=== PATIENT | female | born 1980 | race Caucasian/White ===

== ENCOUNTER 2016-06-24 18:02 | Emergency (ER) | payer OTHER ==
[2016-06-24 18:12] VITALS: BP 116/85
[2016-06-24] MEDS ORDERED: Aspirin Low Dose CHEW TAB* 81 MG PO ONE (18:53)
[2016-06-24] MEDS ORDERED: NS 0.9% 1000 ML* 1,000 ML IV ONE (18:55)
[2016-06-24] MEDS ORDERED: Ondansetron INJ* 2 MG/ML VIAL IV ONE (18:55)
[2016-06-24 19:01] LABS: Hematocrit 37 % (35-47); Hemoglobin 12.5 g/dl (12.0-16.0); Mean Corpuscular HGB Conc 34 g/dl (31-36); Mean Corpuscular Hemoglobin 29 pg (27-31); Mean Corpuscular Volume 86 fL (80-97); Mean Platelet Volume 9 um3 (7.4-10.4); Red Blood Count 4.28 10^6/ul (4.0-5.4); Red Cell Distribution Width 13 % (10.5-15)
--- NOTE | 2016-06-24 19:10 | ED ---
HPI Chest Pain - HPI Summary HPI Summary: Patient presents with back pain radiating to mid-sternal chest. Patient states she has had a previous IA, stroke, and chronic issues with spondylolithiasis and seizures. She states her last seizure was probably yesterday, but gets them usually everyday. She takes Keppra and Depakote. She is drinking and eating OK, but vomits every time she drinks water. Denies leg swelling, although states she has L ankle swelling at baseline after ankle surgery a few years ago. She has back pain at baseline which often will radiate to the chest , but today is worse than usual. Endorses SOB and dyspnea on exertion. She has been seen for these issues multiple times in the ED with CXR, EKG and blood work all returning as normal. She does not see a aircraft engine cylinder mechanic and is seen only by her PCP. Endorses bilateral arm tingling and numbness and L tingling and numbness in the lower extremity. Denies previous PE or DVT. Denies recent travel. Denies estrogen use. PERC score is low risk for PE. - History of Current Complaint Chief Complaint: EDChestPainROMI Time Seen by Provider: 06/24/16 18:30 Hx Obtained From: Patient Onset/Duration: Started Days Ago Timing: Constant Initial Severity: Moderate Current Severity: Moderate Pain Intensity: 9 Pain Scale Used: 0-10 Numeric Chest Pain Location: Discrete at: - midback, Mid Sternal Chest Pain Radiates To:: Epigastric Character: Dull/Aching Aggravating Factor(s): Nothing Alleviating Factor(s): Nothing Associated Signs and Symptoms: Positive: Chest Pain - Risk Factors Pulmonary Embolism Risk Factors: Negative TAD Risk Factors: Negative AMI/ACS Risk Factors: Myocardial Infarction, Family History - Allergy/Home Medications Allergies/Adverse Reactions: Allergies Allergy/AdvReac Type Severity Reaction Status Date / Time Latex Allergy Severe Edema Verified 05/03/16 04:32 Adhesive Tape Allergy Intermediate Hives Verified 05/03/16 04:32 Tramadol AdvReac "gets Verified 05/03/16 04:32 violent" PMH/Surg Hx/FS Hx/Imm Hx Previously Healthy: Yes Endocrine/Hematology History: Reports: Other Endocrine/Hematological Disorders - was told that she has a high risk of clotting from a blood test, no dvt/pe Denies: Hx Diabetes Cardiovascular History: Reports: Hx Hypotension, Hx Hypertension Denies: Hx Pacemaker/ICD Respiratory History: Reports: Hx Asthma - W/NEBULIZER History: Denies: Hx Renal Disease Musculoskeletal History: Reports: Hx Scoliosis, Other Musculoskeletal History - spina bifida Sensory History: Denies: Hx Hearing Aid Psychiatric History: Denies: Hx Panic Disorder - Surgical History Surgery Procedure, Year, and Place: L ear prostethis(PLASTIC BONES); HYSTERECTOMY; neck surgery; gallbladder removed; stomach surgery 2003--"tumors and cysts"; appendectomy Infectious Disease History: No Infectious Disease History: Denies: Hx Clostridium Difficile, Hx Hepatitis, Hx Human Immunodeficiency Virus (HIV), Hx of Known/Suspected MRSA, Hx Shingles, Hx Tuberculosis, Hx Known/ Suspected VRE, Hx Known/Suspected VRSA, History Other Infectious Disease, Traveled Outside the [place] in Last 30 Days - Family History Known Family History: Positive: Diabetes, Other - Bipolar disorder, aunt with stage 4 lung cancer - Social History Occupation: Unemployed Lives: Alone Alcohol Use: None Substance Use Type: Reports: None Hx Tobacco Use: Yes Smoking Status (MU): Current Some Day Smoker Type: Cigarettes Amount Used/How Often: 1/2 ppd Length of Time of Smoking/Using Tobacco: 15 yrs Have You Smoked in the Last Year: Yes Review of Systems Constitutional: Negative Eyes: Negative ENT: Negative Positive: Chest Pain Positive: Shortness Of Breath Positive: Vomiting - 1X episode, Nausea Positive: Arthralgia - L ankle Skin: Negative Positive: Paresthesia - bilateral arms, L lower extremity Positive: Anxious All Other Systems Reviewed And Are Negative: Yes Physical Exam Triage Information Reviewed: Yes Vital Signs On Initial Exam: Initial Vitals Temp Pulse Resp BP Pulse Ox 96.9 F 94 20 116/85 98 06/24/16 18:05 06/24/16 18:05 06/24/16 18:05 06/24/16 18:05 06/24/16 18:05 Vital Signs Reviewed: Yes Appearance: Positive: Well-Appearing - pale Skin: Positive: Warm, Dry - dry mucous membranes, Pale Head/Face: Positive: Normal Head/Face Inspection Eyes: Positive: EOMI, NORA, Conjunctiva Clear ENT: Positive: Hearing grossly normal Neck: Positive: Supple, Nontender, No Lymphadenopathy Respiratory/Lung Sounds: Positive: Clear to Auscultation, Breath Sounds Present Cardiovascular: Positive: Normal, Pulses are Symmetrical in both Upper and Lower Extremities Abdomen Description: Positive: Nontender, Soft Musculoskeletal: Positive: Normal, Strength/ROM Intact Neurological: Positive: Normal, Sensory/Motor Intact, Reflexes Intact, Normal Gait, Speech Normal Psychiatric: Positive: Normal AVPU Assessment: Alert Diagnostics - Vital Signs Vital Signs Temp Pulse Resp BP Pulse Ox 06/24/16 18:05 96.9 F 94 20 116/85 98 - Laboratory Lab Results: Lab Results 06/24/16 Range/Units 18:40 WBC 8.0 (3.5-10.8) 10^3/ul RBC 4.28 (4.0-5.4) 10^6/ul Hgb 12.5 (12.0-16.0) g/dl Hct 37 (35-47) % MCV 86 (80-97) fL MCH 29 (27-31) pg MCHC 34 (31-36) g/dl RDW 13 (10.5-15) % Plt Count 205 (150-450) 10^3/ul MPV 9 (7.4-10.4) um3 Neut % (Auto) 44.7 (38-83) % Lymph % (Auto) 44.0 (25-47) % Ward % (Auto) 8.2 (1-9) % Eos % (Auto) 2.4 (0-6) % Baso % (Auto) 0.7 (0-2) % Absolute Neuts (auto) 3.6 (1.5-7.7) 10^3/ul Absolute Lymphs (auto) 3.5 (1.0-4.8) 10^3/ul Absolute Monos (auto) 0.6 (0-0.8) 10^3/ul Absolute Eos (auto) 0.2 (0-0.6) 10^3/ul Absolute Basos (auto) 0.1 (0-0.2) 10^3/ul Absolute Nucleated RBC 0 10^3/ul Nucleated RBC % 0 Result Diagrams: 06/24/16 18:40 06/24/16 18:40 Lab Statement: Any lab studies that have been ordered have been reviewed, and results considered in the medical decision making process. Chest Pain Course/Dx - Course Course Of Treatment: Cardiac workup WNL. Fluids given. Compared previous EKG and Xray with no acute changes. Previously seen for similar issues with same outcome. Patient to be sent home with ibuprofen and encourage gatorade for feelings of dehydration. Patient encouraged to follow up with PCP in regards to ongoing seizure issues. - Chest Pain Differential Diagnosis/HQI/PQRI: Acute IA, Chest Wall, Lower Respiratory Infection - Diagnoses Provider Diagnoses: Chest wall pain, Dehydration Discharge - Discharge Plan Condition: Stable Disposition: HOME Patient Education Materials: Chest Wall Pain (ED), Chronic Back Pain (ED) Referrals: No Primary Care Phys,NOPCP [Primary Care Provider] - Additional Instructions: May take ibuprofen 600mg three times daily as needed for pain. warm compresses to the back and chest to relieve discomfort. Gatorade to boost electrolytes if you are feeling fatigued.
[2016-06-24 19:13] LABS: Albumin 3.8 g/dL (3.2-5.2); BUN/Creatinine Ratio 22.2 (8-20); Calcium 9.3 mg/dL (8.6-10.3); EGFR African American 139.1 (>60); EGFR Non-African American 108.2 (>60); Globulin 3.3 g/dL (2-4); Potassium 3.8 mmol/L (3.5-5.0); Total Bilirubin 0.2 mg/dL (0.2-1.0); Total Protein 7.1 g/dL (6.4-8.9)
--- NOTE | 2016-06-24 19:25 | RAD ---
INDICATION: Chest pain COMPARISON: May 03, 2016 TECHNIQUE: An AP portable view obtained at 1910 hours is submitted. FINDINGS: Bones/Soft Tissues: There are no acute bony findings. Cardiomediastinal: The cardiomediastinal silhouette is normal. Lungs: There are no infiltrates. Pleura: There are no pleural effusions. Other: None IMPRESSION: NORMAL CHEST.
[2016-06-24 19:36] LABS: TSH (Thyroid Stimulating Horm) 5.69 mcIU/mL (0.34-5.60)
[2016-06-24 19:45] LABS: Magnesium 1.9 mg/dL (1.9-2.7)
== END 2016-06-24 20:29 | disposition home or self-care (01) ==
LOC: ED 18:02
DX: R07.89 Other chest pain (principal); E86.0 Dehydration; M54.9 Dorsalgia, unspecified; Z72.0 Tobacco use; R11.2 Nausea with vomiting, unspecified; F41.9 Anxiety disorder, unspecified; R20.9 Unspecified disturbances of skin sensation
CPT/HCPCS: 36415; 71010; 80053; 82550; 82553; 83605; 83735; 83874; 83880; 84443; 84484; 84702; 85025; 93005; 96374; 99283; A9270-GY; J2405

== ENCOUNTER 2016-11-01 21:56 | Emergency (ER) | payer MEDICAID ==
[2016-11-01 22:27] VITALS: BP 118/90
[2016-11-01] MEDS ORDERED: Ibuprofen TAB* 400 MG PO ONE (22:48)
[2016-11-01] MEDS ORDERED: oxyCODONE/Acetamin 5/325 MG* TAB PO ONE (22:48)
[2016-11-01] MEDS ORDERED: Ketorolac INJ* 60 MG/2 ML VIAL IM ONE (22:48)
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
== END 2016-11-01 23:12 | disposition home or self-care (01) ==
LOC: ED 21:56
DX: M94.0 Chondrocostal junction syndrome [Tietze] (principal); M54.12 Radiculopathy, cervical region; M54.9 Dorsalgia, unspecified; M54.30 Sciatica, unspecified side
CPT/HCPCS: 96372; 99282; A9270-GY

== ENCOUNTER 2016-11-08 00:41 | Emergency (ER) | payer MEDICAID ==
[2016-11-08 01:19] VITALS: BP 117/71
[2016-11-08] MEDS ORDERED: Ibuprofen TAB* 600 MG PO ONE (01:21)
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
--- NOTE | 2016-11-08 08:00 | RAD ---
Indication: RIGHT knee pain without proceeding injury. Numbness down the leg into the foot. Comparison: October 08, 2012 radiographs. Technique: RIGHT knee: AP, tunnel, crosstable lateral, sunrise views. Report: Negative for joint effusion or fracture. Mild medial joint space narrowing. No appreciable osteophytosis. Unremarkable soft tissue contours. IMPRESSION: Mild medial joint space narrowing without significant interval change suggesting thinning of the hyaline articular cartilage.
== END 2016-11-08 03:17 | disposition home or self-care (01) ==
LOC: ED 00:41
DX: M25.561 Pain in right knee (principal); Z72.0 Tobacco use
CPT/HCPCS: 99282; A9270-GY

== ENCOUNTER 2016-12-13 01:59 | Emergency (ER) | payer MEDICAID, OTHER ==
[2016-12-13] MEDS ORDERED: Acetaminophen TAB* 325 MG PO ONE (03:06)
[2016-12-13] MEDS ORDERED: Ibuprofen TAB* 800 MG PO ONE (03:06)
[2016-12-13] MEDS ORDERED: Cyclobenzaprine TAB* 10 MG PO ONE (03:06)
[2016-12-13 06:15] VITALS: BP 111/65
--- NOTE | 2016-12-13 06:28 | ED ---
Jose Ch Benjamin, scribed for Jeri Vargas MD on 12/13/16 at 0249 . Back Pain - HPI Summary HPI Summary: 36yo female came to ED after a mechanical fall while getting out of the shower today. Pt denies LOC or associated head trauma. Pt reports neck and back pain from the fall. 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 - History of Current Complaint Chief Complaint: EDBackInjuryPain Stated Complaint: FALL/BACK AND NECK PAIN Time Seen by Provider: 12/13/16 02:23 Hx Obtained From: Patient Hx Last Menstrual Period: does not get Onset/Duration: Sudden Onset, Lasting Hours, Still Present Onset/Duration: Started Hours Ago, Traumatic, Still Present Timing: Constant Back Pain Location: Is Discrete @ - low back and neck Severity Initially: Moderate Severity Currently: Moderate Pain Intensity: 8 Pain Scale Used: 0-10 Numeric Character: Aching, Throbbing, Spasmodic Aggravating Symptom(s): Movement Alleviating Symptom(s): Nothing Associated Signs And Symptoms: Positive: Negative, Weakness - Allergies/Home Medications Allergies/Adverse Reactions: Allergies Allergy/AdvReac Type Severity Reaction Status Date / Time Latex Allergy Severe Edema Verified 11/08/16 01:14 Adhesive Tape Allergy Intermediate Hives Verified 11/08/16 01:14 Tramadol AdvReac "gets Verified 11/08/16 01:14 violent" PMH/Surg Hx/FS Hx/Imm Hx Endocrine/Hematology History: Reports: Other Endocrine/Hematological Disorders - was told that she has a high risk of clotting from a blood test, no dvt/pe Denies: Hx Diabetes Cardiovascular History: Reports: Hx Hypotension, Hx Hypertension Denies: Hx Pacemaker/ICD Respiratory History: Reports: Hx Asthma - W/NEBULIZER History: Denies: Hx Renal Disease Musculoskeletal History: Reports: Hx Scoliosis, Other Musculoskeletal History - spina bifida Sensory History: Denies: Hx Hearing Aid Psychiatric History: Denies: Hx Panic Disorder - Surgical History Surgery Procedure, Year, and Place: L ear prostethis(PLASTIC BONES); HYSTERECTOMY; neck surgery; gallbladder removed; stomach surgery 2003--"tumors and cysts"; appendectomy Infectious Disease History: No Infectious Disease History: Denies: Hx Clostridium Difficile, Hx Hepatitis, Hx Human Immunodeficiency Virus (HIV), Hx of Known/Suspected MRSA, Hx Shingles, Hx Tuberculosis, Hx Known/ Suspected VRE, Hx Known/Suspected VRSA, History Other Infectious Disease, Traveled Outside the [place] in Last 30 Days - Family History Known Family History: Positive: Cardiac Disease, Diabetes, Other - Bipolar disorder, aunt with stage 4 lung cancer Negative: Hypertension - Social History Occupation: Unemployed Lives: With Family Alcohol Use: None Substance Use Type: Reports: None Hx Tobacco Use: Yes Smoking Status (MU): Current Some Day Smoker Type: Cigarettes Amount Used/How Often: 1/2 ppd Length of Time of Smoking/Using Tobacco: 15 yrs Have You Smoked in the Last Year: Yes Review of Systems Constitutional: Negative Eyes: Negative ENT: Negative Cardiovascular: Negative Negative: Chest Pain Respiratory: Negative Negative: Shortness Of Breath Gastrointestinal: Negative Negative: Abdominal Pain Genitourinary: Negative Positive: Arthralgia - neck pain, Myalgia - back pain Skin: Negative Positive: Weakness - chronic left sided weakness from prior CVA Psychological: Normal All Other Systems Reviewed And Are Negative: Yes Physical Exam Triage Information Reviewed: Yes Vital Signs On Initial Exam: Initial Vitals Temp Pulse Resp BP Pulse Ox 98.4 F 86 15 129/63 99 12/13/16 02:03 12/13/16 02:03 12/13/16 02:03 12/13/16 02:03 12/13/16 02:03 Vital Signs Reviewed: Yes Appearance: Positive: Well-Appearing, No Pain Distress, Well-Nourished Skin: Positive: Warm, Skin Color Reflects Adequate Perfusion, Dry Head/Face: Positive: Normal Head/Face Inspection Eyes: Positive: EOMI, NORA ENT: Positive: Normal ENT inspection, Hearing grossly normal, Pharynx normal, TMs normal Neck: Positive: Supple, Nontender Respiratory/Lung Sounds: Positive: Clear to Auscultation, Breath Sounds Present. Negative: Rales, Rhonchi Cardiovascular: Positive: RRR. Negative: Murmur Abdomen Description: Positive: Nontender, Soft. Negative: Distended, Guarding Bowel Sounds: Positive: Present Musculoskeletal: Positive: Strength/ROM Intact Neurological: Positive: Sensory/Motor Intact, Alert, Oriented to Person Place, Time, CN Intact II-III Psychiatric: Positive: Affect/Mood Appropriate Diagnostics - Vital Signs Vital Signs Temp Pulse Resp BP Pulse Ox 12/13/16 02:03 98.4 F 86 15 129/63 99 - Laboratory Lab Statement: Any lab studies that have been ordered have been reviewed, and results considered in the medical decision making process. - Radiology T spine Xray Interpretation: No Acute Changes Radiology Interpretation Completed By: ED Physician C spine Xray Interpretation: Positive (See Comments) - Irregular edges of the vertebral bodies in C5. Radiology Interpretation Completed By: ED Physician Back Pain Course/Dx - Course Course Of Treatment: 36 yo female with a fall getting into shower (she has residual left sided weakness from a previous CVA) resulting in c5 and t12 tenderness diagnostic studies were negative and pt was able to go home with some muscle relaxers - Diagnoses Provider Diagnoses: Back strain Discharge - Discharge Plan Condition: Stable Disposition: HOME Prescriptions: Cyclobenzaprine TAB* [Flexeril 10 MG TAB*] 10 mg PO TID PRN #20 tab PRN Reason: Spasms Patient Education Materials: Cervical Strain (ED), Thoracic Back Strain (ED) Referrals: Non Staff,Doctor [Primary Care Provider] - The documentation as recorded by the Jose medina Benjamin accurately reflects the service I personally performed and the decisions made by me, Jeri Vargas MD.
--- NOTE | 2016-12-13 08:04 | RAD ---
INDICATION: Fell backwards. Neck pain. COMPARISON: None TECHNIQUE: Routine five-view imaging was performed FINDINGS: Bones: There are no acute bony findings. There are minor degenerative changes about C5-C6. Craniocervical junction: The odontoid and atlantodental interval are normal. Alignment: Cervical spine straightening. Disc spaces: The disc spaces are well-maintained Soft tissues: The prevertebral soft tissues are normal. IMPRESSION: NO ACUTE BONY FINDINGS. MINOR DEGENERATIVE CHANGES C5-C6.
--- NOTE | 2016-12-13 08:04 | RAD ---
INDICATION: Fall. Back pain. COMPARISON: None TECHNIQUE: Routine 2 view imaging was performed FINDINGS: Bones: There are no acute bony findings. There are no significant osteoarthritic findings. Alignment: There is mild kyphosis. There is a scoliotic deformity. Disc spaces: The disc spaces are well-maintained Soft tissues: There are no soft tissue abnormalities. IMPRESSION: KYPHOSCOLIOSIS. NO ACUTE BONY CHANGE.
--- NOTE | 2016-12-13 08:11 | RAD ---
INDICATION: Fall backwards. Neck pain. COMPARISON: Cervical spine same date some: CT cervical spine October 07, 2013 TECHNIQUE: Noncontrast axial source images was performed from the skull base to the thoracic inlet. Coronal and and sagittal reformatted images were generated. FINDINGS: Vertebrae: There is no fracture or acute focal bony lesion. There are degenerative endplate changes at C5-C6 with minor anterior vertebral evidence of process spurring, unchanged. There is also minor spurring about C6-C7. Alignment: Mild reversal normal cervical lordosis, unchanged. The craniocervical junction and atlantodental interval are normal. Central Canal: There are no significant CT abnormalities of the central canal or foramina. MR imaging is a more sensitive method to evaluate the canal and foramina. Intervertebral disc spaces: The remaining disc spaces are maintained. Brain: The visualized brain appears unremarkable. Soft tissues: The visualized soft tissue elements of the neck are unremarkable. The prevertebral soft tissues appear normal. The lung apices are clear. IMPRESSION: MINOR MID TO LOWER CERVICAL OSTEOARTHRITIS. NO ACUTE FINDINGS
== END 2016-12-13 06:14 | disposition home or self-care (01) ==
LOC: ED 01:59
DX: S39.012A Strain of muscle, fascia and tendon of lower back, initial encounter (principal); M54.2 Cervicalgia; M54.9 Dorsalgia, unspecified; R53.1 Weakness; W19.XXXA Unspecified fall, initial encounter; Y93.E1 Activity, personal bathing and showering; Y92.89 Other specified places as the place of occurrence of the external cause; Z72.0 Tobacco use
CPT/HCPCS: 72050; 72070; 72125; 99282; A9270-GY

== ENCOUNTER 2017-06-25 08:15 | Emergency (ER) | payer OTHER ==
--- NOTE | 2017-06-25 08:59 | RAD ---
INDICATION: Back pain after fall COMPARISON: CT cervical spine December 13, 2016 TECHNIQUE: Noncontrast axial source images was performed from the skull base to the thoracic inlet. Coronal and and sagittal reformatted images were generated. FINDINGS: Vertebrae: There is no fracture or acute focal bony lesion. Alignment: The craniocervical junction appears normal. There is cervical spine straightening, unchanged. Central Canal: There are no significant CT abnormalities of the central canal or foramina. MR imaging is a more sensitive method to evaluate the canal and foramina. Intervertebral disc spaces: There is moderate degenerative disc disease about C5-C6, unchanged The disc spaces are maintained. Brain: The visualized brain appears unremarkable. Soft tissues: The visualized soft tissue elements of the neck are unremarkable. The prevertebral soft tissues appear normal. The lung apices are clear. IMPRESSION: DEGENERATIVE DISEASE C5-C6. NO ACUTE FINDINGS.
--- NOTE | 2017-06-25 09:30 | RAD ---
INDICATION: Back pain COMPARISON: None TECHNIQUE: Routine 2 view imaging was performed FINDINGS: Bones: There are no acute bony findings. There are no significant osteoarthritic findings. Alignment: There is moderate dextroscoliosis of the thoracic spine with minor kyphosis Disc spaces: The disc spaces are well-maintained Soft tissues: There are no soft tissue abnormalities. IMPRESSION: Minor kyphoscoliosis, otherwise negative.
--- NOTE | 2017-06-25 09:30 | RAD ---
INDICATION: Back pain COMPARISON: None TECHNIQUE: AP and lateral views were obtained . FINDINGS: Bones: There are no acute bony findings. There are no significant osteoarthritic findings. Alignment: There is minor levoscoliosis. Disc spaces: The disc spaces are well-maintained Soft tissues: There are no soft tissue abnormalities. IMPRESSION: NO ACUTE BONY FINDINGS
--- NOTE | 2017-06-25 09:30 | RAD ---
INDICATION: Pain. Fall COMPARISON: CT January 20, 2016 TECHNIQUE: 2 views of the coccyx and sacrum are submitted FINDINGS: There are no acute bony findings. There is minor sclerosis about the SI joints, unchanged. The symphysis is intact. IMPRESSION: NO ACUTE BONY FINDINGS.
[2017-06-25] MEDS ORDERED: Ketorolac INJ* 60 MG/2 ML VIAL IM ONE (10:01)
[2017-06-25] MEDS ORDERED: Methocarbamol TAB* 500 MG PO ONE (10:01)
[2017-06-25 10:15] VITALS: BP 118/79
--- NOTE | 2017-06-26 09:30 | ED ---
Roseanna Ch Edward, scribed for Abdulaziz Cooley MD on 06/25/17 at 0827 . Adult Trauma - HPI Summary HPI Summary: 36 y/o female presents to the ED c/o immediate onset pain at the back of the neck going down to her tailbone s/p fall at around 04:00 this morning. The pain is rated 9/10, aggravated with movement of the back to a 10/10. Associated sx: bilateral rib pain s/p second fall immediately after the first. Pt landed on her neck and her back after tripping over her service dog. Denies LOC. Pt has back surgery next month to straighten her spine. - History of Current Complaint Chief Complaint: EDBackInjuryPain Stated Complaint: FALL Time Seen by Provider: 06/25/17 08:20 Hx Obtained From: Patient Hx Last Menstrual Period: does not get Mechanism of Injury: Fall - 2x Loss of Consciousness: no loss of consciousness Onset/Duration: Started Hours Ago Onset of Pain: Immediate Current Severity: Severe Pain Intensity: 9 Pain Scale Used: 0-10 Numeric Location: Neck, Chest - ribs, Back Aggravating Factor(s): Movement Alleviating Factor(s): Nothing Associated Signs & Symptoms: Positive: Chest Pain - rib pain. Negative: Loss of Consciousness - Allergy/Home Medications Allergies/Adverse Reactions: Allergies Allergy/AdvReac Type Severity Reaction Status Date / Time Latex Allergy Severe Edema Verified 06/25/17 08:17 Adhesive Tape Allergy Intermediate Hives Verified 06/25/17 08:17 Tramadol AdvReac "gets Verified 06/25/17 08:17 violent" PMH/Surg Hx/FS Hx/Imm Hx Previously Healthy: No Endocrine/Hematology History: Reports: Other Endocrine/Hematological Disorders - was told that she has a high risk of clotting from a blood test, no dvt/pe Denies: Hx Diabetes Cardiovascular History: Reports: Hx Hypotension, Hx Hypertension Denies: Hx Pacemaker/ICD Respiratory History: Reports: Hx Asthma - W/NEBULIZER History: Denies: Hx Renal Disease Musculoskeletal History: Reports: Hx Scoliosis, Other Musculoskeletal History - spina bifida Sensory History: Denies: Hx Hearing Aid Psychiatric History: Denies: Hx Panic Disorder - Surgical History Surgery Procedure, Year, and Place: L ear prostethis(PLASTIC BONES); HYSTERECTOMY; neck surgery; gallbladder removed; stomach surgery 2003--"tumors and cysts"; appendectomy Infectious Disease History: No Infectious Disease History: Denies: Hx Clostridium Difficile, Hx Hepatitis, Hx Human Immunodeficiency Virus (HIV), Hx of Known/Suspected MRSA, Hx Shingles, Hx Tuberculosis, Hx Known/ Suspected VRE, Hx Known/Suspected VRSA, History Other Infectious Disease, Traveled Outside the [place] in Last 30 Days - Family History Known Family History: Positive: Cardiac Disease, Diabetes, Other - Bipolar disorder, aunt with stage 4 lung cancer Negative: Hypertension - Social History Alcohol Use: None Substance Use Type: Reports: None Hx Tobacco Use: Yes Smoking Status (MU): Current Some Day Smoker Type: Cigarettes Amount Used/How Often: 1/2 ppd Length of Time of Smoking/Using Tobacco: 15 yrs Have You Smoked in the Last Year: Yes Review of Systems Constitutional: Negative Eyes: Negative ENT: Negative Positive: Chest Pain - rib pain Respiratory: Negative Gastrointestinal: Negative Genitourinary: Negative Positive: Arthralgia - back of neck down to tailbone Skin: Negative Neurological: Negative Psychological: Normal All Other Systems Reviewed And Are Negative: Yes Physical Exam - Summary Physical Exam Summary: VITAL SIGNS: Reviewed. GENERAL: Patient is a well-developed and nourished female who is lying comfortable in the stretcher. Patient is not in any acute respiratory distress. HEAD AND FACE: No signs of trauma. No ecchymosis, hematomas or skull depressions. No sinus tenderness. EYES: PERRLA, EOMI x 2, No injected conjunctiva, no nystagmus. EARS: Hearing grossly intact. Ear canals and tympanic membranes are within normal limits. MOUTH: Oropharynx within normal limits. NECK: Supple, trachea is midline, no adenopathy, no JVD, no carotid bruit, no c- spine tenderness, neck with full ROM. CHEST: Symmetric, no tenderness at palpation LUNGS: Clear to auscultation bilaterally. No wheezing or crackles. CVS: Regular rate and rhythm, S1 and S2 present, no murmurs or gallops appreciated. ABDOMEN: Soft, non-tender. No signs of distention. No rebound no guarding, and no masses palpated. Bowel sounds are normal. EXTREMITIES: FROM in all major joints, no edema, no cyanosis or clubbing. There is tenderness along the paraspinal muscle from C to L spine. The pt is able to ambulate. There is no fecal or bowel dysfunction. The pain does not radiate to the legs. There is no numbness/weakness in LE. No dropped foot. Pain is 9/10. NEURO: Alert and oriented x 3. No acute neurological deficits. Speech is normal and follows commands. SKIN: Dry and warm Triage Information Reviewed: Yes Vital Signs On Initial Exam: Initial Vitals Temp Pulse Resp BP Pulse Ox 98.4 F 93 16 124/101 97 06/25/17 08:18 06/25/17 08:18 06/25/17 08:18 06/25/17 08:18 06/25/17 08:18 Vital Signs Reviewed: Yes Diagnostics - Vital Signs Vital Signs Temp Pulse Resp BP Pulse Ox 06/25/17 08:18 98.4 F 93 16 124/101 97 - Laboratory Lab Statement: Any lab studies that have been ordered have been reviewed, and results considered in the medical decision making process. - Radiology THORACIC SPINE XR Xray Interpretation: No Acute Changes - Minor kyphoscoliosis, otherwise negative. Radiology Interpretation Completed By: Radiologist SACRUM XR Xray Interpretation: No Acute Changes - NO ACUTE BONY FINDINGS Radiology Interpretation Completed By: Radiologist LUMBAR XR Xray Interpretation: No Acute Changes - NO ACUTE BONY FINDINGS Radiology Interpretation Completed By: Radiologist - CT CSPINE CT CT Interpretation: No Acute Changes - DEGENERATIVE DISEASE C5-C6. NO ACUTE FINDINGS. CT Interpretation Completed By: Radiologist - ED PHYSICIAN REVIEWS AND AGREES Re-Evaluation - Re-Evaluation 1 Re-Evaluation Time: 10:08 Comment: Discuss imaging results, plan of care Adult Trauma Course/Dx - Course Assessment/Plan: 36 y/o female presents to the ED c/o immediate onset pain at the back of the neck going down to her tailbone s/p fall at around 04:00 this morning. The pain is rated 9/10, aggravated with movement of the back to a 10/ 10. Associated sx: bilateral rib pain s/p second fall immediately after the first. Pt landed on her neck and her back after tripping over her service dog. Denies LOC. Pt has back surgery next month to straighten her spine. CSPINE CT SHOWS DEGENERATIVE DISEASE C5-C6. NO ACUTE FINDINGS. TSPINE XR SHOWS Minor kyphoscoliosis, otherwise negative. SACRUM XR SHOWS NO ACUTE BONY FINDINGS. LUMBAR SPINE XR SHOWS NO ACUTE BONY FINDINGS. XR negative for acute fracture dislocation. The pt was given toradol and robaxin and the sx improved. At this point the pt is ambulating with no difficulty, with a good steady walk. The pt will be d/c home with f/u with Dr. Cruz, the pts surgeon. Pt left the ER ambulating. - Diagnoses Differential Diagnosis/HQI/PQRI: Positive: Contusion(s), Fracture, Dislocation, Sprain, Strain Provider Diagnoses: Back pain Discharge - Discharge Plan Condition: Stable Disposition: HOME Prescriptions: HYDROcodone/ACETAMIN 5-325 MG* [[place] 5-325 TAB*] 1 tab PO Q6H PRN #10 tab MDD 4 PRN Reason: Pain Patient Education Materials: Back Pain (ED) Referrals: Non Staff,Doctor [Primary Care Provider] - 4 Days (PLEASE F/U IN 3-5 DAYS) The documentation as recorded by the Roseanna medina Edward accurately reflects the service I personally performed and the decisions made by Yasir conklin Walter, MD.
== END 2017-06-25 10:16 | disposition home or self-care (01) ==
LOC: ED 08:15
DX: M54.9 Dorsalgia, unspecified (principal); M50.322 Other cervical disc degeneration at C5-C6 level; R07.81 Pleurodynia; I95.9 Hypotension, unspecified; I10 Essential (primary) hypertension; J45.909 Unspecified asthma, uncomplicated; Z90.710 Acquired absence of both cervix and uterus; Z90.49 Acquired absence of other specified parts of digestive tract; Z91.040 Latex allergy status; Z88.5 Allergy status to narcotic agent; Z91.048 Other nonmedicinal substance allergy status; Z72.0 Tobacco use
CPT/HCPCS: 72070; 72100; 72125; 72220; 96372; 99283; A9270-GY; J1885

== ENCOUNTER 2017-07-13 00:45 | Emergency (ER) | payer OTHER ==
[2017-07-13 02:46] LABS: Hematocrit 39 % (35-47); Hemoglobin 12.8 g/dl (12.0-16.0); Red Blood Count 4.47 10^6/ul (4.0-5.4); White Blood Count 7.8 10^3/ul (3.5-10.8)
[2017-07-13 02:47] LABS: ABS Basophils 0.1 10^3/ul (0-0.2); ABS Eosinophils 0.1 10^3/ul (0-0.6); ABS Lymphocytes 3.2 10^3/ul (1.0-4.8); ABS Monocytes 0.5 10^3/ul (0-0.8); ABS Neutrophils 3.9 10^3/ul (1.5-7.7); ABS Nucleated RBC 0 10^3/ul; EGFR Non-African American 79.3 (>60); Eosinophil % 1.8 % (0-6); Lymphocyte % 40.7 % (25-47); Mean Corpuscular HGB Conc 33 g/dl (31-36); Mean Corpuscular Hemoglobin 29 pg (27-31); Mean Corpuscular Volume 86 fL (80-97); Mean Platelet Volume 9 um3 (7.4-10.4); Nucleated Red Blood Cells % 0; Platelet Count 221 10^3/ul (150-450); Red Cell Distribution Width 14 % (10.5-15)
[2017-07-13] MEDS ORDERED: Ketorolac INJ* 30 MG/ML 1 ML VIAL IV ONE (03:48)
[2017-07-13] MEDS: NS 0.9% 1000 ML* 2,000 ML IV ONE ×2 (04:07→04:08)
[2017-07-13 04:39] LABS: Urine Appearance Clear; Urine Blood Negative (Negative); Urine Color Straw; Urine Ketones Negative (Negative); Urine Protein Negative (Negative); Urine Specific Gravity 1.009 (1.010-1.030); Urine Urobilinogen Negative (Negative)
[2017-07-13] MEDS ORDERED: Ondansetron INJ* 2 MG/ML VIAL IV ONE (04:57)
[2017-07-13] MEDS ORDERED: Iohexol 300* (CONTRAST) 10 ML SDV IV ONE (06:13)
[2017-07-13 07:29] VITALS: BP 100/62
--- NOTE | 2017-07-13 08:24 | ED ---
Annie Ch Nilda, scribed for Vito Ohara MD on 07/13/17 at 0430 . Abdominal Pain/Female - HPI Summary HPI Summary: This patient is a 36 year old F presenting to [facility] with a chief complaint of diffuse severe abd pain since yesterday morning. The patient rates the pain 8/ 10 in severity. Symptoms aggravated by movement and alleviated by rest. Patient reports acute abd distension, 5 lb weight gain over the past month, discharge from umbilicus, and urinary frequency. Patient denies loss of appetite, abnormal BM, and nausea. Pt states allergies to Tramadol. No PMHx diverticulitis. PSHx cyst and tumor removed from abdomen (2008), hysterectomy, gallstones, and 19 D&Cs (miscarriages). - History of Current Complaint Chief Complaint: EDRashSkinAbscess Stated Complaint: ABD PAIN, SWELLING Hx Obtained From: Patient Hx Last Menstrual Period: does not get Onset/Duration: Sudden Onset, Lasting Days, Still Present Timing: Constant Severity Currently: Severe Pain Intensity: 8 Pain Scale Used: 0-10 Numeric Location: Diffuse Radiates: No Aggravating Factor(s): Movement Alleviating Factor(s): Other: - rest Associated Signs and Symptoms: Positive: Other: - acute abd distension, 5 lb weight gain over the past month, discharge from umbilicus, and urinary frequency. Patient denies loss of appetite, abnormal BM, and nausea. Allergies/Adverse Reactions: Allergies Allergy/AdvReac Type Severity Reaction Status Date / Time Adhesive Tape Allergy Intermediate Hives Verified 07/13/17 00:59 Latex, Natural Rubber Allergy Intermediate Edema Verified 07/13/17 07:17 tramadol AdvReac Intermediate "get's Verified 07/13/17 07:17 violent" PMH/Surg Hx/FS Hx/Imm Hx Endocrine/Hematology History: Reports: Other Endocrine/Hematological Disorders - was told that she has a high risk of clotting from a blood test, no dvt/pe Denies: Hx Diabetes Cardiovascular History: Reports: Hx Hypotension, Hx Hypertension Denies: Hx Pacemaker/ICD Respiratory History: Reports: Hx Asthma - W/NEBULIZER History: Denies: Hx Renal Disease Musculoskeletal History: Reports: Hx Scoliosis, Other Musculoskeletal History - spina bifida Sensory History: Denies: Hx Hearing Aid Psychiatric History: Denies: Hx Panic Disorder - Surgical History Surgery Procedure, Year, and Place: L ear prostethis(PLASTIC BONES); HYSTERECTOMY; neck surgery; gallbladder removed; stomach surgery 2003--"tumors and cysts"; appendectomy Infectious Disease History: No Infectious Disease History: Denies: Hx Clostridium Difficile, Hx Hepatitis, Hx Human Immunodeficiency Virus (HIV), Hx of Known/Suspected MRSA, Hx Shingles, Hx Tuberculosis, Hx Known/ Suspected VRE, Hx Known/Suspected VRSA, History Other Infectious Disease, Traveled Outside the [place] in Last 30 Days - Family History Known Family History: Positive: Cardiac Disease, Diabetes, Other - Bipolar disorder, aunt with stage 4 lung cancer Negative: Hypertension - Social History Alcohol Use: None Substance Use Type: Reports: None Hx Tobacco Use: Yes Smoking Status (MU): Current Some Day Smoker Type: Cigarettes Amount Used/How Often: 1/2 ppd Length of Time of Smoking/Using Tobacco: 15 yrs Have You Smoked in the Last Year: Yes Review of Systems Positive: Abdominal Pain, Other - discharge from umbilicus, weight gain (5 lbs over one month), abd distension; negative loss of appetite, abnormal BM. Negative: Nausea Positive: frequency All Other Systems Reviewed And Are Negative: Yes Physical Exam - Summary Physical Exam Summary: General: well-appearing, no pain distress Skin: warm, color reflects adequate perfusion, dry, drainage from umbilicus ( appears to be yeast infection) Head: normal Eyes: EOMI, NORA ENT: normal Neck: supple, nontender Respiratory: CTA, breath sounds present Cardiovascular: RRR Abdomen: soft, mild diffuse abd tenderness Bowel sounds: present Musculoskeletal: normal, strength/ROM intact Neurological: normal, sensory/motor intact, A&O x3 Psychological: affect/mood appropriate Triage Information Reviewed: Yes Vital Signs On Initial Exam: Initial Vitals Temp Pulse Resp BP Pulse Ox 97.3 F 80 14 133/82 99 07/13/17 00:54 07/13/17 00:54 07/13/17 00:54 07/13/17 00:54 07/13/17 00:54 Vital Signs Reviewed: Yes Diagnostics - Vital Signs Vital Signs Temp Pulse Resp BP Pulse Ox 07/13/17 04:09 100 07/13/17 00:54 97.3 F 80 14 133/82 99 - Laboratory Lab Results: Lab Results 07/13/17 07/13/17 Range/Units 01:55 01:55 WBC 7.8 (3.5-10.8) 10^3/ul RBC 4.47 (4.0-5.4) 10^6/ul Hgb 12.8 (12.0-16.0) g/dl Hct 39 (35-47) % MCV 86 (80-97) fL MCH 29 (27-31) pg MCHC 33 (31-36) g/dl RDW 14 (10.5-15) % Plt Count 221 (150-450) 10^3/ul MPV 9 (7.4-10.4) um3 Neut % (Auto) 49.8 (38-83) % Lymph % (Auto) 40.7 (25-47) % Branch % (Auto) 6.8 (1-9) % Eos % (Auto) 1.8 (0-6) % Baso % (Auto) 0.9 (0-2) % Absolute Neuts (auto) 3.9 (1.5-7.7) 10^3/ul Absolute Lymphs (auto) 3.2 (1.0-4.8) 10^3/ul Absolute Monos (auto) 0.5 (0-0.8) 10^3/ul Absolute Eos (auto) 0.1 (0-0.6) 10^3/ul Absolute Basos (auto) 0.1 (0-0.2) 10^3/ul Absolute Nucleated RBC 0 10^3/ul Nucleated RBC % 0 Sodium 138 (133-145) mmol/L Potassium 3.9 (3.5-5.0) mmol/L Chloride 103 (101-111) mmol/L Carbon Dioxide 29 (22-32) mmol/L Anion Gap 6 (2-11) mmol/L BUN 17 (6-24) mg/dL Creatinine 0.82 (0.51-0.95) mg/dL Est GFR ( Amer) 102.0 (>60) Est GFR (Non-Af Amer) 79.3 (>60) BUN/Creatinine Ratio 20.7 H (8-20) Glucose 123 H (70-100) mg/dL Calcium 9.4 (8.6-10.3) mg/dL Total Bilirubin 0.30 (0.2-1.0) mg/dL AST 10 L (13-39) U/L ALT 5 L (7-52) U/L Alkaline Phosphatase 92 (34-104) U/L C-Reactive Protein 15.01 H (< 5.00) mg/L Total Protein 7.3 (6.4-8.9) g/dL Albumin 4.0 (3.2-5.2) g/dL Globulin 3.3 (2-4) g/dL Albumin/Globulin Ratio 1.2 (1-3) Lipase 15 (11.0-82.0) U/L Beta HCG, Quant 4.63 mIU/mL Result Diagrams: 07/13/17 01:55 07/13/17 01:55 Lab Statement: Any lab studies that have been ordered have been reviewed, and results considered in the medical decision making process. - CT Abd/Pel CT Interpretation Completed By: Radiologist - CT Abd/Pel, per radiologist, reveals no acute findings. Dr. Ohara reviewed this report. Abdominal Pain Fem Course/Dx - Course Course Of Treatment: This patient is a 36 year old F presenting to [facility] with a chief complaint of diffuse severe abd pain since yesterday morning. The patient rates the pain 8/10 in severity. Symptoms aggravated by movement and alleviated by rest. Patient reports acute abd distension, 5 lb weight gain over the past month, discharge from umbilicus, and urinary frequency. Patient denies loss of appetite, abnormal BM, and nausea. Pt states allergies to Tramadol. No PMHx diverticulitis. PSHx 2009 cyst and tumor removed from abdomen, hysterectomy, gallstones, and 19 D&Cs (miscarriages). Allergies noted. Medications reviewed. BP noted and advised to follow up with PCP. CT Abd/Pel, per radiologist, reveals no acute findings. Dr. Ohara reviewed this report. - Diagnoses Provider Diagnoses: Uncontrolled hypertension, Abdominal pain, Navel cellulitis Discharge - Discharge Plan Condition: Stable Disposition: HOME Prescriptions: Cephalexin CAP* [Keflex CAP*] 500 mg PO TID #21 cap Clotrimazole 1% CREAM* [Clotrimazole 1%*] 1 applic TOPICAL BID #1 tube Mupirocin 2% OINT* [Bactroban 2 % Oint*] 1 applic TOPICAL BID #1 tube Patient Education Materials: Cellulitis (ED), Abdominal Pain (ED) Referrals: Non Staff,Doctor [Primary Care Provider] - Additional Instructions: FOLLOW UP WITH YOUR DOCTOR. RETURN TO THE EMERGENCY DEPARTMENT FOR ANY WORSENING OF YOUR CONDITION OR QUESTIONS OR CONCERNS. Your blood pressure was elevated during todays visit; please follow up with your primary care provider within a week for further evaluation. The documentation as recorded by the Annie medina Nilda accurately reflects the service I personally performed and the decisions made by me, Vito Ohara MD.
--- NOTE | 2017-07-13 08:25 | RAD ---
CLINICAL HISTORY: Diffuse abdominal pain COMPARISON: January 20, 2016 TECHNIQUE: Multiple contiguous axial CT scans were obtained of the abdomen and pelvis after the administration of intravenous contrast. Coronal and sagittal multiplanar reformations are submitted for review. Oral contrast was administered. Delayed images were obtained through the abdomen and pelvis. FINDINGS: LUNG BASES: The lung bases are clear. LIVER: The liver is diffusely low in attenuation compared to the spleen. There are no focal hepatic parenchymal masses. The liver measures 19 cm in long axis. BILE DUCTS: There is no intrahepatic or extrahepatic biliary dilatation. GALLBLADDER: The gallbladder is not visualized. Surgical clips are noted in the gallbladder fossa. PANCREAS: The pancreas is normal, without mass or ductal dilatation. SPLEEN: Normal in size and appearance. UPPER GI TRACT: Evaluation of the gastrointestinal tract is limited by incomplete gastric distention. The upper GI tract is unremarkable. SMALL BOWEL AND MESENTERY: The small bowel is normal in contour, course, and caliber. There is no obstruction or dilatation. COLON: The colon is normal in contour, course, caliber. There is no pericolonic inflammatory change. The appendix is not clearly visualized. There is no appreciable inflammatory change in the right lower quadrant. ADRENALS: Normal bilaterally. KIDNEYS: The kidneys are normal in shape, size, contour, and axis. There is no hydronephrosis or nephrolithiasis. BLADDER: The bladder is smooth in contour. PELVIC ORGANS: The pelvic organs are not visualized. AORTA: The aorta is normal. IVC: Unremarkable LYMPH NODES: There is no lymphadenopathy by size criteria. ABDOMINAL WALL: There is no evidence for abdominal wall hernia. BONES AND SOFT TISSUES: There are mild diffuse degenerative changes. OTHER: None IMPRESSION: FATTY INFILTRATION OF THE LIVER WITH MILD HEPATOMEGALY. NO ACUTE CT PATHOLOGY OF THE VISUALIZED ABDOMEN OR PELVIS.
== END 2017-07-13 07:41 | disposition home or self-care (01) ==
LOC: ED 00:45
DX: I10 Essential (primary) hypertension (principal); L03.316 Cellulitis of umbilicus; R10.9 Unspecified abdominal pain; Z72.0 Tobacco use
CPT/HCPCS: 36415; 74177; 80053; 81003; 81015; 83690; 84702; 85025; 86140; 87086; 96374; 96375; 99282; J1885; J2405; Q9967

== ENCOUNTER 2017-11-18 14:56 | Emergency (ER) | payer OTHER ==
[2017-11-18 16:43] LABS: EGFR Non-African American 106.9 (>60)
[2017-11-18 16:49] LABS: Hematocrit 37 % (35-47); Mean Corpuscular HGB Conc 35 g/dl (31-36); Mean Corpuscular Hemoglobin 30 pg (27-31); Mean Corpuscular Volume 86 fL (80-97); Red Blood Count 4.31 10^6/ul (4.00-5.40); Red Cell Distribution Width 14 % (10.5-15); White Blood Count 8.8 10^3/ul (3.5-10.8)
--- NOTE | 2017-11-18 17:04 | RAD ---
INDICATION: Short of breath COMPARISON: Chest x-ray June 24, 2016 TECHNIQUE: PA and lateral dual-energy views were obtained. FINDINGS: Bones/Soft Tissues: There are no acute bony findings. Cardiomediastinal: The cardiomediastinal silhouette is normal. Lungs: There are no infiltrates. Pleura: There are no pleural effusions. Other: None IMPRESSION: NO ACTIVE DISEASE.
--- NOTE | 2017-11-18 17:21 | RAD ---
INDICATION: Pain and swelling. COMPARISON: None TECHNIQUE: Duplex interrogation of the Lowerextremity was performed. FINDINGS: Deep veins: The common femoral, great saphenous, profunda femoris, proximal, mid, and distal deep femoral, popliteal, posterior tibial, and peroneal veins are patent. There is normal compressibility, augmentation, and phasic flow. Superficial veins: There are no findings of superficial thrombophlebitis. Popliteal fossa:There is no evidence of a popliteal cyst. Soft tissues:There are no soft tissue abnormalities. IMPRESSION: Normal examination. No evidence of deep venous thrombosis
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
--- NOTE | 2017-11-18 18:49 | RAD ---
INDICATION: Left foot pain COMPARISON: Left foot December 02, 2012 TECHNIQUE: AP, lateral, and oblique views were obtained. FINDINGS: There is no acute fracture. There is a stable tiny plantar calcaneal spur. The soft tissues are normal. IMPRESSION: NO ACUTE FRACTURE.
--- NOTE | 2017-11-18 18:50 | RAD ---
INDICATION: Left knee pain COMPARISON: Left knee on January 27, 2015 TECHNIQUE: AP, lateral, and oblique views were obtained. FINDINGS: The bony structures, joint spaces, and soft tissues are normal for age. IMPRESSION: NEGATIVE EXAMINATION.
--- NOTE | 2017-11-18 18:50 | RAD ---
INDICATION: Left leg injury COMPARISON: None TECHNIQUE: AP, lateral, and oblique views were obtained. FINDINGS: The bony structures, joint spaces, and soft tissues are normal for age. IMPRESSION: NEGATIVE EXAMINATION.
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
[2017-11-18 20:30] LABS: Platelet Count 225 10^3/ul (150-450)
[2017-11-18 20:31] VITALS: BP 130/84
[2017-11-18 20:32] LABS: Eosinophil % 1.4 % (0-6); Lymphocyte % 42.1 % (25-47); Nucleated Red Blood Cells % 0.1
[2017-11-18 20:33] LABS: ABS Basophils 0.1 10^3/ul (0-0.2); ABS Eosinophils 0.1 10^3/ul (0-0.6); ABS Lymphocytes 3.7 10^3/ul (1.0-4.8); ABS Monocytes 0.6 10^3/ul (0-0.8); ABS Neutrophils 4.3 10^3/ul (1.5-7.7); ABS Nucleated RBC 0 10^3/ul
== END 2017-11-18 20:30 | disposition home or self-care (01) ==
LOC: ED 14:56
DX: M79.605 Pain in left leg (principal); M79.89 Other specified soft tissue disorders; R07.9 Chest pain, unspecified; R06.02 Shortness of breath; I10 Essential (primary) hypertension; F17.210 Nicotine dependence, cigarettes, uncomplicated
CPT/HCPCS: 36415; 71046; 80053; 81241; 84443; 84484; 85025; 85300; 85303; 85306; 85379; 93005; 99283

== ENCOUNTER → 2018-03-13 19:24 | Emergency (ER) | payer OTHER ==
[~2018-03-13 19:24] MED LIST: Aspirin 81 mg CHEW TAB* 81 MG TAB.CHEW ONE; Aspirin 81 mg CHEW TAB* 81 MG TAB.CHEW PO ONE; Divalproex ER TAB(*) 500 MG PO ONE; levETIRAcetam TAB* 500 MG PO ONE
--- NOTE | 2018-03-13 19:52 | ED ---
HPI Chest Pain - HPI Summary HPI Summary: This patient is a 37 year old F presenting to [facility] with a chief complaint of chest tightness that has gotten worse since 03-11-18 but she has had it for four days. The patient rates the pain 6/10 in severity and states it radiates into left neck, left arm, and whole left side. Symptoms aggravated by palpation. Symptoms alleviated by nothing. Patient reports SOB, dry cough, and left leg pain. Patient denies nausea, PARK, fever, flu like sx, and any similar pain in the past. Pt went to the ER at [facility] in [place] on 03/11/18 for the same sx. She states there they told her she had swelling if the chest wall and wanted to admit her. She denied admission because she wanted to be home to take care of her dog. Hx seizures. Pt takes Keppra 750 mg BID, Depakote 500 mg TID, as well as an inhaler for asthma PRN. Fluticasone-Salmeterol 100-50* [Advair Diskus 100-50*] 1 puff INH BID 02/06/15 [ History Confirmed 11/18/17] Divalproex Sodium [Depakote] 500 mg PO BID 04/16/16 [History Confirmed 11/18/17] levETIRAcetam [Keppra 500] 750 mg PO BID 04/16/16 [History Confirmed 11/18/17] Albuterol HFA INHALER* [Ventolin HFA Inhaler*] 2 puff INH Q4H PRN 05/03/16 [ History Confirmed 11/18/17] - History of Current Complaint Chief Complaint: EDChestPainROMI Time Seen by Provider: 03/13/18 19:41 Hx Obtained From: Patient, Medical [facility] Hx Last Menstrual Period: hysterectomy Onset/Duration: Started Days Ago, Atraumatic, Still Present, Worse Since Timing: Constant Initial Severity: Moderate Current Severity: Moderate Pain Intensity: 6 Pain Scale Used: 0-10 Numeric Chest Pain Location: Mid Sternal Chest Pain Radiates: Yes Chest Pain Radiates To:: Arm - left, Jaw - left Character: Pressure/Squeezing Aggravating Factor(s): Other: - palpation Alleviating Factor(s): Nothing Associated Signs and Symptoms: Positive: Negative - nausea, PARK, fever, flu, Other: - SOB, dry cough, and left leg pain. - Allergy/Home Medications Allergies/Adverse Reactions: Allergies Allergy/AdvReac Type Severity Reaction Status Date / Time Adhesive Tape Allergy Intermediate Hives Verified 03/13/18 19:29 Latex, Natural Rubber Allergy Intermediate Edema Verified 03/13/18 19:29 tramadol AdvReac Intermediate "get's Verified 03/13/18 19:29 violent" PMH/Surg Hx/FS Hx/Imm Hx Previously Healthy: No Endocrine/Hematology History: Denies: Hx Diabetes Cardiovascular History: Denies: Hx Pacemaker/ICD Respiratory History: Reports: Hx Asthma History: Denies: Hx Renal Disease Musculoskeletal History: Reports: Hx Scoliosis, Other Musculoskeletal History - spina bifida Sensory History: Denies: Hx Hearing Aid Neurological History: Reports: Hx Seizures Psychiatric History: Reports: Hx Bipolar Disorder Denies: Hx Panic Disorder - Surgical History Surgery Procedure, Year, and Place: L ear prostethis(PLASTIC BONES); HYSTERECTOMY; neck surgery; gallbladder removed; stomach surgery 2003--"tumors and cysts"; appendectomy Infectious Disease History: No Infectious Disease History: Denies: Hx Clostridium Difficile, Hx Hepatitis, Hx Human Immunodeficiency Virus (HIV), Hx of Known/Suspected MRSA, Hx Shingles, Hx Tuberculosis, Hx Known/ Suspected VRE, Hx Known/Suspected VRSA, History Other Infectious Disease, Traveled Outside the [place] in Last 30 Days - Family History Known Family History: Positive: Cardiac Disease, Diabetes, Other - Bipolar disorder, aunt with stage 4 lung cancer Negative: Hypertension - Social History Lives: With Family Alcohol Use: None Substance Use Type: Reports: None Hx Tobacco Use: Yes Smoking Status (MU): Current Some Day Smoker Type: Cigarettes Amount Used/How Often: 1/2 ppd Length of Time of Smoking/Using Tobacco: 15 yrs Have You Smoked in the Last Year: Yes Review of Systems Constitutional: Negative - flu like sx Negative: Fever Positive: Chest Pain - w/ radiation Positive: Shortness Of Breath, Cough - dry Negative: Nausea Positive: Other - LLE pain Skin: Negative Negative: Headache Psychological: Normal All Other Systems Reviewed And Are Negative: Yes Physical Exam - Summary Physical Exam Summary: Appearance: Well-appearing, moderate pain distress, well-nourished Skin: Warm, color reflects adequate perfusion, dry Head: Normal Head/Face inspection, atraumatic Eyes: Conjunctiva clear ENT: Normal inspection Neck: Supple, no nodes, no JVD Respiratory: Lungs clear, normal breath sounds, no respiratory distress Cardio: RRR, No murmur, pulses normal, brisk capillary refill Abdomen: Soft, nontender Bowel sounds: Present Musculoskeletal: Strength Intact/ROM intact, no calf tenderness, no edema. Reproducible CP with palpation Psychological: Normal Neuro: Alert, muscle tone normal, no focal deficit Triage Information Reviewed: Yes Vital Signs On Initial Exam: Initial Vitals Temp Pulse Resp BP Pulse Ox 97.7 F 89 16 131/96 99 03/13/18 19:30 03/13/18 19:30 03/13/18 19:30 03/13/18 19:30 03/13/18 19:30 Vital Signs Reviewed: Yes Diagnostics - Vital Signs Vital Signs Temp Pulse Resp BP Pulse Ox 03/13/18 19:30 97.7 F 89 16 131/96 99 - Laboratory Result Diagrams: 03/13/18 20:09 03/13/18 20:10 Lab Statement: Any lab studies that have been ordered have been reviewed, and results considered in the medical decision making process. - Radiology CXR Radiology Interpretation Completed By: ED Physician - no acute disease. Pending official report. - EKG 1930 Cardiac Rate: NL EKG Rhythm: Sinus Rhythm - at [address] Segment: Normal Ectopy: None EKG Interpretation: nml AV/IV CT, nml QTc, and nml axis Re-Evaluation - Re-Evaluation First Eval Re-Evaluation Time: 22:30 Change: Improved Comment: pain is improved. Discussed records from [facility] that do not indicate that pt was to be admitted. Neg chest pain work up. Pt agrees to discharge. Requests her night doses of keppra 750mg and valproic acid 2 x 500mg ER tabs and medicaid cab home. Chest Pain Course/Dx - Course Course Of Treatment: 37 yo F with chest pain assoc with dry cough, pain is reproducible. Work up is neg. Records reviewed from [facility] indicate unremarkable work up as well on 03/09/18 and pt was DC'd home without RX's and advised to follow up with [facility] primary care. Assessment/Plan: troponin is zero, d-dimer normal at 208. HCG is 6.7 (normal). WBC is normal, but CRP is elevated at 25. An EKG at 1931 reveals nml AV/IV CT, nml QTc, and nml axis 77 BPM. CXR reveals, no acute disease. Pending official report. Pt is DC'd after being given evening doses of anti-seizure medication and advised to follow up. Diagnosis: chest pain - Chest Pain Differential Diagnosis/HQI/PQRI: Acute LA, ACS, Chest Wall, GI Disease, Lower Respiratory Infection, Pulmonary Embolism - Diagnoses Provider Diagnoses: Chest pain, Seizure disorder Discharge - Sign-Out/Discharge Documenting (check all that apply): Patient Departure - home discharge - Discharge Plan Condition: Stable Disposition: HOME Patient Education Materials: Chest Pain (ED) Referrals: [facility] [Outside] - 1 Day [facility] [Outside] - As Soon As Possible Additional Instructions: We did not diagnose a serious cause of your chest pain today. We reviewed the records from [facility] from 03/09/18 and our evaluation was very similar to that. Dr. Shukla read your chest xray and that is a preliminary reading. We will contact you if you need any additional treatment based on the final reading of the chest xray. We have given you a copy of your labs today. Return to the ER if you have any new or worsening symptoms. You were given your evening dose of Keppra 750mg and Depakote ER 2 of the 500mg tabs before discharge at 10:45pm. - Billing Disposition and Condition Condition: STABLE Disposition: Home - Attestation Statements Document Initiated by Rojelio: Yes Documenting Scribe: Ezra Farris Provider For Whom Rojelio is Documenting (Include Credential): Dr. Phyllis Shukla MD Scribe Attestation: Ezra Ch scribed for Dr. Phyllis Shukla MD on 03/14/18 at 0204. Scribe Documentation Reviewed: Yes Provider Attestation: The documentation as recorded by the Ezra medina accurately reflects the service I personally performed and the decisions made by me, Dr. Phyllis Shukla MD
[2018-03-13 20:20] LABS: ABS Basophils 0.1 10^3/ul (0-0.2); ABS Eosinophils 0.3 10^3/ul (0-0.6); ABS Lymphocytes 2.8 10^3/ul (1.0-4.8); ABS Monocytes 0.5 10^3/ul (0-0.8); ABS Neutrophils 3.9 10^3/ul (1.5-7.7); ABS Nucleated RBC 0 10^3/ul; Eosinophil % 3.6 % (0-6); Hematocrit 39 % (35-47); Hemoglobin 13.4 g/dl (12.0-16.0); Lymphocyte % 37.3 % (25-47); Mean Corpuscular HGB Conc 34 g/dl (31-36); Mean Corpuscular Hemoglobin 30 pg (27-31); Mean Corpuscular Volume 88 fL (80-97); Mean Platelet Volume 8.4 um3 (7.4-10.4); Nucleated Red Blood Cells % 0.1; Platelet Count 283 10^3/ul (150-450); Red Blood Count 4.44 10^6/ul (4.00-5.40); Red Cell Distribution Width 13 % (10.5-15); White Blood Count 7.6 10^3/ul (3.5-10.8)
[2018-03-13 20:30] LABS: INR 0.95 (0.77-1.02)
[2018-03-13 21:00] LABS: EGFR Non-African American 96.3 (>60)
[2018-03-13] MEDS: NS 0.9% 1000 ML* 2,000 ML IV ONE (21:18)
[2018-03-13 23:43] VITALS: BP 119/84
--- NOTE | 2018-03-14 07:53 | RAD ---
HISTORY: chest pain COMPARISONS: November 18, 2017 VIEWS: 4: Frontal dual-energy and lateral views of the chest. FINDINGS: CARDIOMEDIASTINAL SILHOUETTE: The cardiomediastinal silhouette is normal. LILI: The lili are normal. PLEURA: The costophrenic angles are sharp. No pleural abnormalities are noted. LUNG PARENCHYMA: The lungs are clear. ABDOMEN: The upper abdomen is clear. There is no subphrenic gas. BONES AND SOFT TISSUES: No bone or soft tissue abnormalities are noted. OTHER: None. IMPRESSION: NO ACTIVE CARDIOPULMONARY DISEASE. R0
== END | disposition home or self-care (01) ==
LOC: ED 19:24
DX: R56.9 Unspecified convulsions (principal); R07.9 Chest pain, unspecified; R06.02 Shortness of breath; R05 Cough; Z72.0 Tobacco use
CPT/HCPCS: 36415; 71046; 80053; 80164; 80177; 82550; 82553; 83605; 83735; 83880; 84436; 84443; 84484; 84702; 85025; 85379; 85610; 85730; 86140; 93005; 96360; 99283; A9270-GY

== ENCOUNTER 2018-03-24 19:50 | Emergency (ER) | payer OTHER ==
[2018-03-24 23:04] LABS: ABS Basophils 0 10^3/ul (0-0.2); ABS Eosinophils 0.3 10^3/ul (0-0.6); ABS Lymphocytes 3.1 10^3/ul (1.0-4.8); ABS Monocytes 0.7 10^3/ul (0-0.8); ABS Neutrophils 4.5 10^3/ul (1.5-7.7); ABS Nucleated RBC 0 10^3/ul; Hematocrit 38 % (35-47); Hemoglobin 13.1 g/dl (12.0-16.0); Lymphocyte % 35.7 % (25-47); Mean Corpuscular HGB Conc 34 g/dl (31-36); Mean Corpuscular Hemoglobin 30 pg (27-31); Mean Corpuscular Volume 87 fL (80-97); Mean Platelet Volume 8.6 um3 (7.4-10.4); Nucleated Red Blood Cells % 0.1; Platelet Count 227 10^3/ul (150-450); Red Blood Count 4.39 10^6/ul (4.00-5.40); Red Cell Distribution Width 13 % (10.5-15); White Blood Count 8.6 10^3/ul (3.5-10.8)
[2018-03-24 23:24] LABS: EGFR Non-African American 59.3 (>60)
--- NOTE | 2018-03-25 00:45 | ED ---
HPI Chest Pain - HPI Summary HPI Summary: This patient is a 37 year old F presenting to [facility] with a chief complaint of acute on chronic chest pain and SOB for the past few days. Chest pain is 7/10 in severity and described as tightness. Patient reports recent illness with fatigue, cough, chills, sweats, and body aches. Patient denies vomiting and calf pain or swelling. Patient report recent bout of a racing heart rate with skipped beats. Patient reports a history of arrhythmia and cardiac disease. - History of Current Complaint Chief Complaint: EDChestPainROMI Time Seen by Provider: 03/24/18 22:29 Hx Obtained From: Patient Hx Last Menstrual Period: hysterectomy Onset/Duration: Started Days Ago Timing: Lasting Days Pain Intensity: 7 Pain Scale Used: 0-10 Numeric Chest Pain Location: Diffuse Chest Pain Radiates: No Character: Tightness Aggravating Factor(s): Deep Breaths Alleviating Factor(s): Nothing Associated Signs and Symptoms: Positive: Chest Pain, Shortness of Breath, Cough. Negative: Calf Pain/Swelling - Allergy/Home Medications Allergies/Adverse Reactions: Allergies Allergy/AdvReac Type Severity Reaction Status Date / Time Adhesive Tape Allergy Intermediate Hives Verified 03/13/18 19:29 Latex, Natural Rubber Allergy Intermediate Edema Verified 03/13/18 19:29 tramadol AdvReac Intermediate "get's Verified 03/13/18 19:29 violent" PMH/Surg Hx/FS Hx/Imm Hx Endocrine/Hematology History: Reports: Other Endocrine/Hematological Disorders - was told that she has a high risk of clotting from a blood test, no dvt/pe Denies: Hx Diabetes Cardiovascular History: Reports: Hx Hypotension, Hx Hypertension Denies: Hx Pacemaker/ICD Respiratory History: Reports: Hx Asthma History: Denies: Hx Renal Disease Musculoskeletal History: Reports: Hx Scoliosis, Other Musculoskeletal History - spina bifida Sensory History: Denies: Hx Hearing Aid Neurological History: Reports: Hx Seizures Psychiatric History: Reports: Hx Bipolar Disorder Denies: Hx Panic Disorder - Surgical History Surgery Procedure, Year, and Place: L ear prostethis(PLASTIC BONES); HYSTERECTOMY; neck surgery; gallbladder removed; stomach surgery 2003--"tumors and cysts"; appendectomy Infectious Disease History: No Infectious Disease History: Denies: Hx Clostridium Difficile, Hx Hepatitis, Hx Human Immunodeficiency Virus (HIV), Hx of Known/Suspected MRSA, Hx Shingles, Hx Tuberculosis, Hx Known/ Suspected VRE, Hx Known/Suspected VRSA, History Other Infectious Disease, Traveled Outside the [place] in Last 30 Days - Family History Known Family History: Positive: Cardiac Disease, Diabetes, Other - Bipolar disorder, aunt with stage 4 lung cancer Negative: Hypertension - Social History Alcohol Use: None Substance Use Type: Reports: None Hx Tobacco Use: Yes Smoking Status (MU): Current Some Day Smoker Type: Cigarettes Amount Used/How Often: 1/2 ppd Length of Time of Smoking/Using Tobacco: 15 yrs Have You Smoked in the Last Year: Yes Review of Systems Positive: Chills, Fatigue Positive: Palpitations, Chest Pain Positive: Shortness Of Breath, Cough Positive: Myalgia All Other Systems Reviewed And Are Negative: Yes Physical Exam - Summary Physical Exam Summary: Appearance: Well-appearing, Well-nourished, lying in bed comfortably Skin: Warm, dry, no obvious rash Eyes: sclera anicteric, no conjunctival pallor ENT: mucous membranes moist, pharynx appears normal Neck: Supple, nontender Respiratory: Clear to auscultation, no signs of respiratory distress Cardiovascular: Normal S1, S2. No murmurs. Normal distal pulses in tibial and radial bilaterally. Abdomen: Soft, nontender, normal active bowel sounds present Musculoskeletal: Normal, Strength/ROM Intact Neurological: A&Ox3, awake and alert, mentation is normal, speech is fluent and appropriate Psychiatric: affect is normal, does not appear anxious or depressed Triage Information Reviewed: Yes Vital Signs On Initial Exam: Initial Vitals Temp Pulse Resp BP Pulse Ox 97.7 F 97 20 124/94 97 03/24/18 19:52 03/24/18 19:52 03/24/18 19:52 03/24/18 19:52 03/24/18 19:52 Vital Signs Reviewed: Yes Diagnostics - Vital Signs Vital Signs Temp Pulse Resp BP Pulse Ox 03/24/18 23:00 89 13 96 03/24/18 22:50 85 16 113/86 96 03/24/18 22:20 90 113/98 97 03/24/18 22:19 97 98 03/24/18 19:52 97.7 F 97 20 124/94 97 - Laboratory Lab Results: Lab Results 03/24/18 03/24/18 Range/Units 22:53 22:53 WBC 8.6 (3.5-10.8) 10^3/ul RBC 4.39 (4.00-5.40) 10^6/ul Hgb 13.1 (12.0-16.0) g/dl Hct 38 (35-47) % MCV 87 (80-97) fL MCH 30 (27-31) pg MCHC 34 (31-36) g/dl RDW 13 (10.5-15) % Plt Count 227 (150-450) 10^3/ul MPV 8.6 (7.4-10.4) um3 Neut % (Auto) 52.5 (38-83) % Lymph % (Auto) 35.7 (25-47) % Kidder % (Auto) 8.5 H (0-7) % Eos % (Auto) 3.0 (0-6) % Baso % (Auto) 0.3 (0-2) % Absolute Neuts (auto) 4.5 (1.5-7.7) 10^3/ul Absolute Lymphs (auto) 3.1 (1.0-4.8) 10^3/ul Absolute Monos (auto) 0.7 (0-0.8) 10^3/ul Absolute Eos (auto) 0.3 (0-0.6) 10^3/ul Absolute Basos (auto) 0 (0-0.2) 10^3/ul Absolute Nucleated RBC 0 10^3/ul Nucleated RBC % 0.1 Sodium 138 (135-145) mmol/L Potassium 3.3 L (3.5-5.0) mmol/L Chloride 102 (101-111) mmol/L Carbon Dioxide 29 (22-32) mmol/L Anion Gap 7 (2-11) mmol/L BUN 22 (6-24) mg/dL Creatinine 1.05 H (0.51-0.95) mg/dL Est GFR ( Amer) 71.8 (>60) Est GFR (Non-Af Amer) 59.3 (>60) BUN/Creatinine Ratio 21.0 H (8-20) Glucose 136 H (70-100) mg/dL Calcium 8.7 (8.6-10.3) mg/dL Total Bilirubin 0.30 (0.2-1.0) mg/dL AST 20 (13-39) U/L ALT 11 (7-52) U/L Alkaline Phosphatase 78 (34-104) U/L Troponin I 0.00 (<0.04) ng/mL Total Protein 7.0 (6.4-8.9) g/dL Albumin 3.6 (3.2-5.2) g/dL Globulin 3.4 (2-4) g/dL Albumin/Globulin Ratio 1.1 (1-3) Beta HCG, Quant 5.96 mIU/mL Valproic Acid 56.0 (50-100) mcg/mL Result Diagrams: 03/24/18 22:53 03/24/18 22:53 Lab Statement: Any lab studies that have been ordered have been reviewed, and results considered in the medical decision making process. - Radiology CXR Radiology Interpretation Completed By: Radiologist - Negative CXR - EKG 1955 Cardiac Rate: NL - 85 BPM EKG Rhythm: Sinus Rhythm Summary of EKG Findings: Normal EKG Chest Pain Course/Dx - Course Course Of Treatment: 37 y/o female presenting with chest pain and SOB for the past few days. Patient reports recent illness with cough, sweats, chills, and body aches. CXR is negative. EKG is unremarkable. Patients exam is otherwise unremarkable. Patient will be discharged home. - Diagnoses Provider Diagnoses: Acute bronchitis Discharge - Sign-Out/Discharge Documenting (check all that apply): Patient Departure - discharge - Discharge Plan Condition: Good Disposition: HOME Patient Education Materials: Acute Bronchitis (ED) Referrals: [facility] [Outside] No Primary Care Phys,NOPCP [Primary Care Provider] - Additional Instructions: Most cases of bronchitis last a few weeks. As long as you are not worsening you can take OTC pain medication and cough medicine. - Billing Disposition and Condition Condition: GOOD Disposition: Home - Attestation Statements Document Initiated by Scribe: Yes Documenting Scribe: Stephanie Kaminski Provider For Whom Rojelio is Documenting (Include Credential): Bret Ratliff MD Scribe Attestation: Stephanie Ch, scribed for Bret Ratliff MD on 03/25/18 at 0134. Scribe Documentation Reviewed: Yes Provider Attestation: The documentation as recorded by the krissyibe, Stephanie Kaminski accurately reflects the service I personally performed and the decisions made by me, Bret Ratliff MD
[2018-03-25 01:02] VITALS: BP 108/86
--- NOTE | 2018-03-25 07:53 | RAD ---
INDICATION: Chest pain and dyspnea. COMPARISON: Comparison is made with prior study from March 13, 2018. TECHNIQUE: AP and lateral views of the chest were obtained. FINDINGS: The heart is within normal limits in size. Mediastinal and hilar contours appear within normal limits. The lungs are clear. No pleural effusion is seen. There is flattening of the diaphragms suggestive of chronic obstructive pulmonary disease. IMPRESSION: FINDINGS SUGGESTIVE OF COPD, NO EVIDENCE FOR ACUTE FINDING. R0
== END 2018-03-25 01:00 | disposition home or self-care (01) ==
LOC: ED 19:50
DX: J20.9 Acute bronchitis, unspecified (principal); R00.2 Palpitations; Z91.040 Latex allergy status; Z88.5 Allergy status to narcotic agent; Z91.048 Other nonmedicinal substance allergy status; Z72.0 Tobacco use
CPT/HCPCS: 36415; 71046; 80053; 80164; 84484; 84702; 85025; 93005; 99283

== ENCOUNTER 2018-04-03 23:13 | Emergency (ER) | payer OTHER ==
[2018-04-03] MEDS ORDERED: Albuterol/Ipratropium NEB.SOL* Albuterol 2.5 MG/Ipratropium 0.5 MG 3 ML INH ONE (23:32)
[2018-04-04 00:07] LABS: ABS Basophils 0.1 10^3/ul (0-0.2); ABS Eosinophils 0.3 10^3/ul (0-0.6); ABS Lymphocytes 3.6 10^3/ul (1.0-4.8); ABS Monocytes 0.8 10^3/ul (0-0.8); ABS Neutrophils 4.5 10^3/ul (1.5-7.7); ABS Nucleated RBC 0 10^3/ul; Eosinophil % 3.1 % (0-6); Hematocrit 40 % (35-47); Hemoglobin 13.6 g/dl (12.0-16.0); Mean Corpuscular HGB Conc 34 g/dl (31-36); Mean Corpuscular Hemoglobin 30 pg (27-31); Mean Corpuscular Volume 88 fL (80-97); Mean Platelet Volume 8.6 fL (7.4-10.4); Nucleated Red Blood Cells % 0; Platelet Count 252 10^3/ul (150-450); Red Blood Count 4.57 10^6/ul (4.00-5.40); Red Cell Distribution Width 13 % (10.5-15); White Blood Count 9.3 10^3/ul (3.5-10.8)
[2018-04-04] MEDS ORDERED: methylPREDNISolone 125 MG* 2 ML VIAL IV ONE (00:46)
--- NOTE | 2018-04-04 01:17 | ED ---
Respiratory - HPI Summary HPI Summary: 37-year-old female with past medical history of asthma and cardiac disease presents with shortness of breath for the past couple hours. She states she's been having chest pain in the center of the chest. She states chest tightness in her chest. She admits occasional palpitations that has history of. She also notes a cough that has been present for past two weeks when was dx with bronchitis. She admits to fevers. states she occasionally smokes. She has been using she has been using her inhaler. States this feels similar to when she had pneumonia. No previous cardiac surgeries. She states that her symptoms are similar to when she had pneumonia. the symptoms woke her up out of her sleep. No sinus congestion. No sore throat. No abdominal pain. No nausea and no vomiting. She states she has a history of heart being larger than normal and follow up with cardiology about such. - History of Current Complaint Chief Complaint: EDGeneral Stated Complaint: CHEST PAIN/DIFF BREATHING Time Seen by Provider: 04/03/18 23:25 Pain Intensity: 8 Sputum Amount: None - Allergy/Home Medications Allergies/Adverse Reactions: Allergies Allergy/AdvReac Type Severity Reaction Status Date / Time Adhesive Tape Allergy Intermediate Hives Verified 03/13/18 19:29 Latex, Natural Rubber Allergy Intermediate Edema Verified 03/13/18 19:29 tramadol AdvReac Intermediate "get's Verified 03/13/18 19:29 violent" PMH/Surg Hx/FS Hx/Imm Hx Endocrine/Hematology History: Reports: Other Endocrine/Hematological Disorders - was told that she has a high risk of clotting from a blood test, no dvt/pe Denies: Hx Diabetes Cardiovascular History: Reports: Hx Hypotension, Hx Hypertension Denies: Hx Pacemaker/ICD Respiratory History: Reports: Hx Asthma History: Denies: Hx Renal Disease Musculoskeletal History: Reports: Hx Scoliosis, Other Musculoskeletal History - spina bifida Sensory History: Denies: Hx Hearing Aid Neurological History: Reports: Hx Seizures Psychiatric History: Reports: Hx Bipolar Disorder Denies: Hx Panic Disorder - Surgical History Surgery Procedure, Year, and Place: L ear prostethis(PLASTIC BONES); HYSTERECTOMY; neck surgery; gallbladder removed; stomach surgery 2003--"tumors and cysts"; appendectomy Infectious Disease History: No Infectious Disease History: Denies: Hx Clostridium Difficile, Hx Hepatitis, Hx Human Immunodeficiency Virus (HIV), Hx of Known/Suspected MRSA, Hx Shingles, Hx Tuberculosis, Hx Known/ Suspected VRE, Hx Known/Suspected VRSA, History Other Infectious Disease, Traveled Outside the [place] in Last 30 Days - Family History Known Family History: Positive: Cardiac Disease, Diabetes, Other - Bipolar disorder, aunt with stage 4 lung cancer Negative: Hypertension - Social History Alcohol Use: None Substance Use Type: Reports: None Hx Tobacco Use: Yes Smoking Status (MU): Current Some Day Smoker Type: Cigarettes Amount Used/How Often: 1/2 ppd Length of Time of Smoking/Using Tobacco: 15 yrs Have You Smoked in the Last Year: Yes Review of Systems Negative: Fever Positive: Chest Pain Positive: Shortness Of Breath, Cough All Other Systems Reviewed And Are Negative: Yes Physical Exam Triage Information Reviewed: Yes Vital Signs On Initial Exam: Initial Vitals Temp Pulse Resp BP Pulse Ox 98.3 F 103 20 129/88 98 04/03/18 23:15 04/03/18 23:15 04/03/18 23:15 04/03/18 23:15 04/03/18 23:15 Vital Signs Reviewed: Yes Appearance: Positive: Well-Appearing Skin: Positive: Warm, Dry Head/Face: Positive: Normal Head/Face Inspection Eyes: Positive: Normal, EOMI, NORA, Conjunctiva Clear ENT: Positive: Normal ENT inspection, Pharynx normal, TMs normal Neck: Positive: Supple, Nontender, No Lymphadenopathy Respiratory/Lung Sounds: Positive: Clear to Auscultation, Breath Sounds Present Cardiovascular: Positive: Normal, RRR Abdomen Description: Positive: Nontender, Soft Bowel Sounds: Positive: Present Musculoskeletal: Positive: Normal Neurological: Positive: Normal Psychiatric: Positive: Normal Diagnostics - Vital Signs Vital Signs Temp Pulse Resp BP Pulse Ox 04/03/18 23:58 75 20 100 04/03/18 23:23 106 126/99 96 04/03/18 23:22 101 97 04/03/18 23:15 98.3 F 103 20 129/88 98 - Laboratory Lab Results: Lab Results 04/03/18 04/03/18 04/03/18 Range/Units 23:47 23:47 23:47 WBC 9.3 (3.5-10.8) 10^3/ul RBC 4.57 (4.00-5.40) 10^6/ul Hgb 13.6 (12.0-16.0) g/dl Hct 40 (35-47) % MCV 88 (80-97) fL MCH 30 (27-31) pg MCHC 34 (31-36) g/dl RDW 13 (10.5-15) % Plt Count 252 (150-450) 10^3/ul MPV 8.6 (7.4-10.4) fL Neut % (Auto) 48.7 (38-83) % Lymph % (Auto) 39.0 (25-47) % [place] % (Auto) 8.3 H (0-7) % Eos % (Auto) 3.1 (0-6) % Baso % (Auto) 0.9 (0-2) % Absolute Neuts (auto) 4.5 (1.5-7.7) 10^3/ul Absolute Lymphs (auto) 3.6 (1.0-4.8) 10^3/ul Absolute Monos (auto) 0.8 (0-0.8) 10^3/ul Absolute Eos (auto) 0.3 (0-0.6) 10^3/ul Absolute Basos (auto) 0.1 (0-0.2) 10^3/ul Absolute Nucleated RBC 0 10^3/ul Nucleated RBC % 0 D-Dimer, Quantitative (Less Than 230) ng/mL Sodium 139 (135-145) mmol/L Potassium 4.2 (3.5-5.0) mmol/L Chloride 103 (101-111) mmol/L Carbon Dioxide 31 (22-32) mmol/L Anion Gap 5 (2-11) mmol/L BUN 14 (6-24) mg/dL Creatinine 0.97 H (0.51-0.95) mg/dL Est GFR ( Amer) 78.6 (>60) Est GFR (Non-Af Amer) 65.0 (>60) BUN/Creatinine Ratio 14.4 (8-20) Glucose 103 H (70-100) mg/dL Lactic Acid 1.0 (0.5-2.0) mmol/L Calcium 9.1 (8.6-10.3) mg/dL Total Bilirubin 0.20 (0.2-1.0) mg/dL AST 13 (13-39) U/L ALT 8 (7-52) U/L Alkaline Phosphatase 95 (34-104) U/L Troponin I 0.00 (<0.04) ng/mL C-Reactive Protein 27.74 H (<8.01) mg/L B-Natriuretic Peptide (<=100) pg/mL Total Protein 7.2 (6.4-8.9) g/dL Albumin 3.7 (3.2-5.2) g/dL Globulin 3.5 (2-4) g/dL Albumin/Globulin Ratio 1.1 (1-3) Procalcitonin (<0.6) ng/mL 04/03/18 04/03/18 04/03/18 Range/Units 23:47 23:47 23:48 WBC (3.5-10.8) 10^3/ul RBC (4.00-5.40) 10^6/ul Hgb (12.0-16.0) g/dl Hct (35-47) % MCV (80-97) fL MCH (27-31) pg MCHC (31-36) g/dl RDW (10.5-15) % Plt Count (150-450) 10^3/ul MPV (7.4-10.4) fL Neut % (Auto) (38-83) % Lymph % (Auto) (25-47) % [place] % (Auto) (0-7) % Eos % (Auto) (0-6) % Baso % (Auto) (0-2) % Absolute Neuts (auto) (1.5-7.7) 10^3/ul Absolute Lymphs (auto) (1.0-4.8) 10^3/ul Absolute Monos (auto) (0-0.8) 10^3/ul Absolute Eos (auto) (0-0.6) 10^3/ul Absolute Basos (auto) (0-0.2) 10^3/ul Absolute Nucleated RBC 10^3/ul Nucleated RBC % D-Dimer, Quantitative < 200 (Less Than 230) ng/mL Sodium (135-145) mmol/L Potassium (3.5-5.0) mmol/L Chloride (101-111) mmol/L Carbon Dioxide (22-32) mmol/L Anion Gap (2-11) mmol/L BUN (6-24) mg/dL Creatinine (0.51-0.95) mg/dL Est GFR ( Amer) (>60) Est GFR (Non-Af Amer) (>60) BUN/Creatinine Ratio (8-20) Glucose (70-100) mg/dL Lactic Acid (0.5-2.0) mmol/L Calcium (8.6-10.3) mg/dL Total Bilirubin (0.2-1.0) mg/dL AST (13-39) U/L ALT (7-52) U/L Alkaline Phosphatase (34-104) U/L Troponin I (<0.04) ng/mL C-Reactive Protein (<8.01) mg/L B-Natriuretic Peptide 13 (<=100) pg/mL Total Protein (6.4-8.9) g/dL Albumin (3.2-5.2) g/dL Globulin (2-4) g/dL Albumin/Globulin Ratio (1-3) Procalcitonin < 0.1 (<0.6) ng/mL Result Diagrams: 04/03/18 23:47 04/03/18 23:47 Lab Statement: Any lab studies that have been ordered have been reviewed, and results considered in the medical decision making process. - EKG No standard instances Cardiac Rate: NL EKG Rhythm: Sinus Rhythm Summary of EKG Findings: sinus rhythm Re-Evaluation - Re-Evaluation First Eval Re-Evaluation Time: 01:00 Change: Unchanged Comment: lungs CTA after breathing treatment Second Eval Re-Evaluation Time: 01:34 Change: Unchanged Comment: explained results. lungs still CTA. patient states is sob but vitals normal and is sitting comfortable in room Third Eval Re-Evaluation Time: 02:16 Comment: develop a low grade fever Disposition - Course Course Of Treatment: 37-year-old female with past medical history of asthma and cardiac disease presents with shortness of breath for the past couple hours. She states she's been having chest pain in the center of the chest. She states chest tightness in her chest. She admits occasional palpitations that has history of. She also notes a cough that has been present for past two weeks when was dx with bronchitis. She admits to fevers. states she occasionally smokes. She has been using she has been using her inhaler. States this feels similar to when she had pneumonia. No previous cardiac surgeries. She states that her symptoms are similar to when she had pneumonia. the symptoms woke her up out of her sleep. No sinus congestion. No sore throat. No abdominal pain. No nausea and no vomiting. on exam lungs CTA. heart RRR. ekg shows sinus rhythm. chest xray read by me as normal. wbc normal. crp elevated. bnp normal. troponin neg. bnp neg. discussed that probably symptoms still related to bronchitis. will add on steriod and tessalon for cough. patient understand and agrees with plan. - Differential Dx - Cardiopulmonary Differential Diagnoses - Cardiopulmonary: Asthma, CAD, Lower Resp Infection - Diagnoses Provider Diagnoses: Chest pain, Asthma, Bronchitis Discharge - Sign-Out/Discharge Documenting (check all that apply): Patient Departure - Discharge Plan Condition: Good Disposition: HOME Prescriptions: Azithromycin TAB* [Zithromax TAB (Z-KELLEE) 250 mg #6 tabs] 250 mg PO DAILY #4 tab predniSONE TAB* [Deltasone TAB*] 50 mg PO DAILY #4 tab Patient Education Materials: Acute Bronchitis (ED) Referrals: [facility] [Outside] Additional Instructions: follow up with [facility] within 4 days take antibiotic once a day for 4 days take steroid once a day for 4 days take inhaler every 6 hours as needed for cough Return to ED if develop any new or worsening symptoms - Billing Disposition and Condition Condition: GOOD Disposition: Home
[2018-04-04] MEDS ORDERED: Acetaminophen TAB* 325 MG PO ONE (02:11)
[2018-04-04] MEDS ORDERED: Azithromycin TAB* 250 MG PO ONE (02:19)
[2018-04-04 02:25] VITALS: BP 111/82
== END 2018-04-04 02:38 | disposition home or self-care (01) ==
LOC: ED 23:13
DX: R07.89 Other chest pain (principal); J45.909 Unspecified asthma, uncomplicated; Z91.040 Latex allergy status; Z88.5 Allergy status to narcotic agent; Z91.048 Other nonmedicinal substance allergy status; Z72.0 Tobacco use
CPT/HCPCS: 36415; 71046; 80053; 83605; 83880; 84145; 84484; 85025; 85379; 86140; 87040; 93005; 96374; 99283; A9270-GY; J2930

== ENCOUNTER 2018-05-15 19:58 | Emergency (ER) | payer OTHER ==
[2018-05-15] MEDS ORDERED: Famotidine TAB* 20 MG PO ONE (20:56)
[2018-05-15] MEDS ORDERED: predniSONE TAB* 20 MG PO ONE (20:56)
[2018-05-15] MEDS ORDERED: Albuterol 2.5 MG/3 ML NEB.SOL* (0.083%) INH ONE (21:22)
--- NOTE | 2018-05-15 21:40 | ED ---
Allergic Reaction/Systemic - HPI Summary HPI Summary: 37-year-old female presents with potentially allergic reaction today. States she did eat bananas accidental and had a reaction to such. She states that she' s been having shortness breath sore throat and chest pain. She states that it aggravated her asthma. She also has a bowel pain. No nausea and vomiting. She says that her reaction to bananas. She took Benadryl with minimal relief. She states this incident occurred at like 3:00 today. No change in her symptoms since started. She denies any wheezing. no rash. - History of Current Complaint Chief Complaint: EDAllergicReaction Time Seen by Provider: 05/15/18 21:18 Hx Last Menstrual Period: hysterectomy Pain Intensity: 7 - Allergies/Home Medications Allergies/Adverse Reactions: Allergies Allergy/AdvReac Type Severity Reaction Status Date / Time Adhesive Tape Allergy Intermediate Hives Verified 03/13/18 19:29 Latex, Natural Rubber Allergy Intermediate Edema Verified 03/13/18 19:29 tramadol AdvReac Intermediate "get's Verified 03/13/18 19:29 violent" PMH/Surg Hx/FS Hx/Imm Hx Endocrine/Hematology History: Reports: Other Endocrine/Hematological Disorders - was told that she has a high risk of clotting from a blood test, no dvt/pe Denies: Hx Diabetes Cardiovascular History: Reports: Hx Hypotension, Hx Hypertension Denies: Hx Pacemaker/ICD Respiratory History: Reports: Hx Asthma, Hx Chronic Obstructive Pulmonary Disease (COPD) History: Denies: Hx Renal Disease Musculoskeletal History: Reports: Hx Scoliosis, Other Musculoskeletal History - spina bifida Sensory History: Denies: Hx Hearing Aid Neurological History: Reports: Hx Seizures Psychiatric History: Reports: Hx Bipolar Disorder Denies: Hx Panic Disorder - Surgical History Surgery Procedure, Year, and Place: L ear prostethis(PLASTIC BONES); HYSTERECTOMY; neck surgery; gallbladder removed; stomach surgery 2003--"tumors and cysts"; appendectomy Infectious Disease History: No Infectious Disease History: Denies: Hx Clostridium Difficile, Hx Hepatitis, Hx Human Immunodeficiency Virus (HIV), Hx of Known/Suspected MRSA, Hx Shingles, Hx Tuberculosis, Hx Known/ Suspected VRE, Hx Known/Suspected VRSA, History Other Infectious Disease, Traveled Outside the [place] in Last 30 Days - Family History Known Family History: Positive: Cardiac Disease, Diabetes, Other - Bipolar disorder, aunt with stage 4 lung cancer Negative: Hypertension - Social History Alcohol Use: None Substance Use Type: Reports: None Hx Tobacco Use: Yes Smoking Status (MU): Current Some Day Smoker Type: Cigarettes Amount Used/How Often: 1/2 ppd Length of Time of Smoking/Using Tobacco: 15 yrs Have You Smoked in the Last Year: Yes Review of Systems Negative: Fever Positive: Chest Pain Positive: Shortness Of Breath Positive: Abdominal Pain All Other Systems Reviewed And Are Negative: Yes Physical Exam Triage Information Reviewed: Yes Vital Signs On Initial Exam: Initial Vitals Temp Pulse Resp BP Pulse Ox 98 F 96 20 126/98 99 05/15/18 20:15 05/15/18 20:15 05/15/18 20:15 05/15/18 20:15 05/15/18 20:15 Vital Signs Reviewed: Yes Appearance: Positive: Well-Appearing Skin: Positive: Warm, Dry Head/Face: Positive: Normal Head/Face Inspection Eyes: Positive: Normal, EOMI, NORA, Conjunctiva Clear ENT: Positive: Normal ENT inspection, Pharynx normal, TMs normal Respiratory/Lung Sounds: Positive: Clear to Auscultation, Breath Sounds Present Cardiovascular: Positive: Normal, RRR Abdomen Description: Positive: Nontender, Soft Bowel Sounds: Positive: Present Musculoskeletal: Positive: Normal Neurological: Positive: Normal Psychiatric: Positive: Normal Diagnostics - Vital Signs Vital Signs Temp Pulse Resp BP Pulse Ox 05/15/18 21:34 80 16 100 05/15/18 20:15 98 F 96 20 126/98 99 - Laboratory Lab Statement: Any lab studies that have been ordered have been reviewed, and results considered in the medical decision making process. Re-Evaluation - Re-Evaluation First Eval Re-Evaluation Time: 22:37 Comment: sitting comfortable in bed, lungs CTA. pharynx normal. Allergic Reaction Course/Dx - Course Course Of Treatment: 37-year-old female presents with potentially allergic reaction today. States she did eat bananas accidental and had a reaction to such. She states that she's been having shortness breath sore throat and chest pain. She states that it aggravated her asthma. She also has a bowel pain. No nausea and vomiting. She says that her reaction to bananas. She took Benadryl with minimal relief. She states this incident occurred at like 3:00 today. No change in her symptoms since started. She denies any wheezing. no rash. on exam normal physical exam. pharnyx normal. lungs CTA. heart RRR. abdomen soft nontender. gave breathing treatment as patient admits to chest tightness. gave pepcid and prednisone and patient states feels same. no evidence of allergic reaction on exam. patient has been stable for 6 hours now since ingestion so will discharge home with steriod and hydroxyzine. patient understand and agrees with plan. - Diagnoses Differential Diagnosis/HQI/PQRI: Positive: Anaphylaxis, Local Allergic Reaction , Urticaria Provider Diagnoses: Food allergy Discharge - Sign-Out/Discharge Documenting (check all that apply): Patient Departure - Discharge Plan Condition: Good Disposition: HOME Prescriptions: Famotidine TAB* [Pepcid 20 MG TAB*] 20 mg PO BID #8 tab hydrOXYzine HCL TAB* [Atarax 25 MG TAB*] 25 mg PO QID PRN #10 tab PRN Reason: Allergy Symptoms predniSONE TAB* [Deltasone TAB*] 50 mg PO DAILY #4 tab Patient Education Materials: Food Allergy (ED) Referrals: No Primary Care Phys,NOPCP [Primary Care Provider] - Additional Instructions: Take Benadryl every 6 hours at night and hydroxyzine during the day every 6 hours Take Pepcid twice a day for 4 days Take steroid once a day for 4 days starting tomorrow Return to ED if develop any new or worsening symptoms - Billing Disposition and Condition Condition: GOOD Disposition: Home
[2018-05-15] MEDS ORDERED: diPHENhydraMINE PO* 25 MG PO ONE (22:23)
[2018-05-15 23:00] VITALS: BP 123/89
== END 2018-05-15 23:00 | disposition home or self-care (01) ==
LOC: ED 19:58
DX: T78.1XXA Other adverse food reactions, not elsewhere classified, initial encounter (principal); X58.XXXA Exposure to other specified factors, initial encounter
CPT/HCPCS: 99282; A9270-GY; J7512

== ENCOUNTER 2018-05-30 18:13 | Emergency (ER) | payer OTHER ==
--- NOTE | 2018-05-30 21:23 | ED ---
HPI Chest Pain - HPI Summary HPI Summary: A 37 y/o F presents to ED with c/o severe intermittent mid-sternal CP for past 2 -3 days which is worsening. She states the pain is radiating to her UE and LE. Associated sx: neck pain, back pain, UE and LE numbness, rib pain, SOB. She says that when she touches certain parts of her chest, whole parts of my body go numb. She called her PCP today who referred her to ED. Aggravating factors: breathing, walking. She took Tylenol BAGGAGE SCREENER to no relief. Pt was seen by Dr. Ratliff in [facility] on 03/24/18 for similar sx, and last in [facility] on 05/15/19. PMHx : Chronic back pain, arthritis, asthma. - History of Current Complaint Chief Complaint: EDChestPainROMI Time Seen by Provider: 05/30/18 21:17 Hx Obtained From: Patient Hx Last Menstrual Period: hysterectomy Onset/Duration: Still Present Timing: Constant, Lasting Days Initial Severity: Severe Current Severity: Severe - pt is conversant and lying comfortably in stretcher Pain Intensity: 10 Pain Scale Used: 0-10 Numeric Chest Pain Location: Mid Sternal Chest Pain Radiates: Yes Chest Pain Radiates To:: Other - UE and LE Aggravating Factor(s): Exertion - walking, Deep Breaths Alleviating Factor(s): Nothing Associated Signs and Symptoms: Positive: Numbness - UE and LE, Shortness of Breath, Back Pain, Other: - pos: neck pain, rib pain - Allergy/Home Medications Allergies/Adverse Reactions: Allergies Allergy/AdvReac Type Severity Reaction Status Date / Time Adhesive Tape AdvReac Intermediate Hives Verified 05/30/18 18:15 Latex, Natural Rubber AdvReac Intermediate Edema Verified 05/30/18 18:15 tramadol AdvReac Intermediate "get's Verified 05/30/18 18:15 violent" PMH/Surg Hx/FS Hx/Imm Hx Previously Healthy: No Endocrine/Hematology History: Reports: Other Endocrine/Hematological Disorders - was told that she has a high risk of clotting from a blood test, no dvt/pe Denies: Hx Diabetes Cardiovascular History: Reports: Hx Hypotension, Hx Hypertension Denies: Hx Pacemaker/ICD Respiratory History: Reports: Hx Asthma, Hx Chronic Obstructive Pulmonary Disease (COPD) History: Denies: Hx Renal Disease Musculoskeletal History: Reports: Hx Scoliosis, Other Musculoskeletal History - spina bifida Sensory History: Denies: Hx Hearing Aid Neurological History: Reports: Hx Seizures Psychiatric History: Reports: Hx Bipolar Disorder Denies: Hx Panic Disorder - Surgical History Surgery Procedure, Year, and Place: L ear prostethis(PLASTIC BONES); HYSTERECTOMY; neck surgery; gallbladder removed; stomach surgery 2003--"tumors and cysts"; appendectomy Infectious Disease History: No Infectious Disease History: Denies: Hx Clostridium Difficile, Hx Hepatitis, Hx Human Immunodeficiency Virus (HIV), Hx of Known/Suspected MRSA, Hx Shingles, Hx Tuberculosis, Hx Known/ Suspected VRE, Hx Known/Suspected VRSA, History Other Infectious Disease, Traveled Outside the [place] in Last 30 Days - Family History Known Family History: Positive: Cardiac Disease, Diabetes, Other - Bipolar disorder, aunt with stage 4 lung cancer Negative: Hypertension - Social History Occupation: Unemployed Lives: Alone Alcohol Use: None Hx Substance Use: No Substance Use Type: Reports: None Hx Tobacco Use: Yes Smoking Status (MU): Current Some Day Smoker Type: Cigarettes Amount Used/How Often: 1/2 ppd Length of Time of Smoking/Using Tobacco: 15 yrs Have You Smoked in the Last Year: Yes Review of Systems Positive: Chest Pain Positive: Shortness Of Breath Musculoskeletal: Other - pos: rib pain; UE and LE pain, neck pain, back pain Positive: Numbness - pos: UE and LE numbness All Other Systems Reviewed And Are Negative: Yes Physical Exam - Summary Physical Exam Summary: Appearance: Well-appearing, Well-nourished, lying in bed comfortably Skin: Warm, dry, no obvious rash Eyes: sclera anicteric, no conjunctival pallor ENT: mucous membranes moist, pharynx appears normal Neck: Supple, nontender Respiratory: Clear to auscultation, no signs of respiratory distress Cardiovascular: Normal S1, S2. No murmurs. Normal distal pulses in tibial and radial bilaterally. Abdomen: Soft, nontender, normal active bowel sounds present Musculoskeletal: Normal, Strength/ROM Intact Neurological: A&Ox3, awake and alert, mentation is normal, speech is fluent and appropriate Psychiatric: affect is normal, does not appear anxious or depressed Triage Information Reviewed: Yes Vital Signs On Initial Exam: Initial Vitals Temp Pulse Resp BP Pulse Ox 97.7 F 101 18 138/93 100 05/30/18 18:15 05/30/18 18:15 05/30/18 18:15 05/30/18 18:15 05/30/18 18:15 Vital Signs Reviewed: Yes Diagnostics - Vital Signs Vital Signs Temp Pulse Resp BP Pulse Ox 05/30/18 20:30 98.6 F 82 16 133/93 99 05/30/18 18:15 97.7 F 101 18 138/93 100 - Laboratory Result Diagrams: 05/30/18 21:41 05/30/18 21:41 Lab Statement: Any lab studies that have been ordered have been reviewed, and results considered in the medical decision making process. - Radiology CXR Radiology Interpretation Completed By: ED Physician Summary of Radiographic Findings: Normal. - EKG 1817 Cardiac Rate: NL - 90 bpm EKG Rhythm: Sinus Rhythm Summary of EKG Findings: NSR at 90 BPM, P waves, QRS complex, and T waves are within normal limits, T waves and intervals are normal, no ischemic changes. Chest Pain Course/Dx - Course Course Of Treatment: Pt is a 37 y/o F presenting with severe intermittent mid- sternal CP for past 2-3 days which is worsening. She states the pain is radiating to her UE and LE. Associated sx: neck pain, back pain, UE and LE numbness, rib pain, SOB. She says that when she touches certain parts of her chest, whole parts of my body go numb.. CXR is normal. EKG is NSR. Lab work is unremarkable. Flu tests are negative. Will discharge patient home. - Diagnoses Provider Diagnoses: Chest wall pain Discharge - Sign-Out/Discharge Documenting (check all that apply): Patient Departure - D/C - Discharge Plan Condition: Good Disposition: HOME Patient Education Materials: Chest Wall Pain (ED) Referrals: [facility] [Outside] Additional Instructions: The tests we did tonight did not show any serious problem, such as a heart or lung problem. As we discussed, chronic problems with pain like this can be difficult to diagnose, and ongoing followup with a primary care provider is important to manage the problem. - Billing Disposition and Condition Condition: GOOD Disposition: Home - Attestation Statements Document Initiated by Scribe: Yes Documenting Scribe: Negro Mao Provider For Whom Scribe is Documenting (Include Credential): Dr. Bret Ratliff MD Scribe Attestation: I, Negro Mao, scribed for Dr. Bret Ratliff MD on 05/31/18 at 2002. Scribe Documentation Reviewed: Yes Provider Attestation: The documentation as recorded by the krissyibe, Negro Mao accurately reflects the service I personally performed and the decisions made by me, Dr. Bret Ratliff MD Status of Scribe Document: Viewed
[2018-05-30] MEDS ORDERED: Ketorolac INJ* 30 MG/ML 1 ML VIAL IV PUSH ONE (21:26)
[2018-05-30 21:59] LABS: ABS Basophils 0.1 10^3/ul (0-0.2); ABS Eosinophils 0.1 10^3/ul (0-0.6); ABS Lymphocytes 3.1 10^3/ul (1.0-4.8); ABS Monocytes 0.5 10^3/ul (0-0.8); ABS Neutrophils 4.9 10^3/ul (1.5-7.7); ABS Nucleated RBC 0 10^3/ul; Eosinophil % 1.6 %; Hematocrit 40 % (35-47); Hemoglobin 13.1 g/dl (12.0-16.0); Lymphocyte % 35.6 %; Mean Corpuscular HGB Conc 33 g/dl (31-36); Mean Corpuscular Hemoglobin 29 pg (27-31); Mean Corpuscular Volume 88 fL (80-97); Mean Platelet Volume 8.6 fL (7.4-10.4); Nucleated Red Blood Cells % 0.1; Platelet Count 210 10^3/ul (150-450); Red Blood Count 4.49 10^6/ul (4.00-5.40); Red Cell Distribution Width 14 % (10.5-15); White Blood Count 8.7 10^3/ul (3.5-10.8)
[2018-05-30 22:14] LABS: Albumin 3.8 g/dL (3.2-5.2); Albumin/Globulin Ratio 1.2 (1-3); Calcium 9.2 mg/dL (8.6-10.3); EGFR Non-African American 81.2 (>60); Globulin 3.2 g/dL (2-4); Potassium 3.9 mmol/L (3.5-5.0); Total Bilirubin 0.2 mg/dL (0.2-1.0)
[2018-05-30 22:22] LABS: HCG Pregnancy 5.28 mIU/mL
[2018-05-30 23:02] LABS: Erythrocyte Sed Rate 28 mm/Hr (0-14)
[2018-05-31 01:00] VITALS: BP 109/70
== END 2018-05-31 00:59 | disposition home or self-care (01) ==
LOC: ED 18:13
DX: R07.89 Other chest pain (principal); R06.02 Shortness of breath; M54.2 Cervicalgia; M54.9 Dorsalgia, unspecified; R20.0 Anesthesia of skin; R07.81 Pleurodynia; Z91.038 Other insect allergy status; Z88.5 Allergy status to narcotic agent; Z91.048 Other nonmedicinal substance allergy status; Z82.49 Family history of ischemic heart disease and other diseases of the circulatory system; Z83.3 Family history of diabetes mellitus; Z80.1 Family history of malignant neoplasm of trachea, bronchus and lung; Z72.0 Tobacco use
CPT/HCPCS: 36415; 71046; 80053; 84484; 84702; 85025; 85379; 85652; 93005; 96374; 99283; J1885

== ENCOUNTER 2018-12-31 13:32 | Emergency (ER) | payer OTHER ==
[2018-12-31 14:23] VITALS: BP 118/87
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
== END 2018-12-31 15:52 | disposition home or self-care (01) ==
LOC: UCEAST 13:32
DX: G89.29 Other chronic pain (principal); M54.5 Low back pain; F32.9 Major depressive disorder, single episode, unspecified; F17.210 Nicotine dependence, cigarettes, uncomplicated; Z91.040 Latex allergy status
CPT/HCPCS: 99212; G0463

== ENCOUNTER 2019-05-03 04:44 | Emergency (ER) | payer OTHER ==
--- OUTSIDE RECORDS SUMMARY | 2019-05-03 04:55 | XMS REPORT | Summary of Care ---
:1980 Author Organization [facility] Address [address] [place] [address] Care Team Providers Name Role Phone PachecoEmile Primary Care Provider Reason for Visit Reason Comments Loss of Consciousness Encounter Details Date Type Department Care Team Description 03/20/2019 Emergency [facility] Emergency Department Wojciech Ríos DO Emergency [address] [place] [id number] [place] [address] [phone] Allergies Active Allergy Reactions Severity Noted Date Comments Tape: Silk Or Adhesive Respiratory Reaction 12/20/2016 Bee Anaphylaxis 01/26/2017 Latex Respiratory Reaction 12/20/2016 Mushrooms Hives 11/28/2018 Tramadol Other 12/20/2016 Mood change documented as of this encounter (statuses as of 03/21/2019) Medications Medication Sig Dispensed Refills Start Date End Date Status Levetiracetam (KEPPRA) Take 1 Tab by 60 Tab 5 09/17/2018 Active 750 MG Oral Tab mouth TWICE DAILY. divalproex sodium Take 3 Tabs by 270 Tab 3 09/17/2018 Active (DEPAKOTE) 500 MG Oral mouth DAILY. One Tab ECIndications: in AM, two in PM. Seizure disorder (HCC) Aripiprazole (ABILIFY) Take 1 Tab by 30 Tab 2 09/25/2018 Active 2 MG Oral Tab mouth EVERY BEDTIME. Fluoxetine HCl 40 MG Take 1 Cap by 90 Cap 1 10/09/2018 Active Oral Cap mouth DAILY. diclofenac (VOLTAREN) 1 2 g by Topical 1 Tube 3 12/25/2018 Active % Transdermal Gel route FOUR TIMES DAILY. cyclobenzaprine Take 1 Tab by 50 Tab 1 12/25/2018 Active (FLEXERIL) 10 MG Oral mouth THREE TIMES Tab DAILY NEEDED (back pain). EPINEPHrine (EPIPEN 0.3 mg by 2 Each 0 01/14/2019 Active 2-KELLEE) 0.3 MG/0.3ML Injection route Injection Solution NEEDED (For Auto-injector allergic reaction, after bee sting) for up to 1 dose. documented as of this encounter (statuses as of 03/21/2019) Active Problems Problem Noted Date Spell of altered cognition 02/06/2019 Lung nodule seen on imaging study 12/25/2018 Overview: 2.5 mm left upper lung incidental Other chest pain 11/24/2018 Overview: Started at rest, describes it as sharp, lower chest to abdomen. Responded to GI cocktail in ED. Denied aggravating symptoms. Reproducible on exam. Troponin negative with EKG unremarkable. Unlikely cardiac in nature. Heart score of 1 (smoking). Echo 2018: normal EF w/o regional wall abnormalities. -Trend troponin -Monitor in telemetry. Psychological disorder 11/24/2018 Overview: Unspecified. Continue home Abilify Lipoma of extremity 11/19/2018 Overview: Lower extremities. Being seen by general surgery for excision. Syncope, psychogenic 02/12/2018 Postconcussion syndrome 01/27/2017 Acute midline back pain 01/26/2017 Bilateral numbness and tingling of arms and legs 01/26/2017 Overview: Decreased sensation on exam of upper and lower extremities bilaterally. Strength intact. Recent head CT without abnormalities. Likely psychogenic in nature. Consider hypokalemia as etiology. Will replace and monitor. Seizure disorder 01/26/2017 Overview: Continue home medications. Tobacco use 01/26/2017 documented as of this encounter (statuses as of 03/21/2019) Resolved Problems Problem Noted Date Resolved Date Fall 01/26/2017 08/07/2017 Syncope 01/26/2017 02/12/2018 documented as of this encounter (statuses as of 03/21/2019) Social History Tobacco Use Types Packs/Day Years Used Date Current Some Day Smoker 0.5 Smokeless Tobacco: Never Used Alcohol Use Drinks/Week oz/Week Comments Yes Alcohol Habits Answer Date Recorded How often do you have a drink containing alcohol? Monthly or less 06/04/2018 How many drinks containing alcohol do you have on a Not asked typical day when you are drinking? How often do you have six or more drinks on one Not asked occasion? Sex Assigned at Date Recorded Not on file Job Start Date Occupation Industry Not on file Not on file Not on file Travel History Travel Start Travel End No recent travel history available. documented as of this encounter Last Filed Vital Signs Vital Sign Reading Time Taken Comments Blood Pressure 105/57 03/20/2019 10:53 PM EDT Pulse 73 03/20/2019 10:53 PM EDT Temperature 36.3 03/20/2019 10:53 PM EDT C (97.3 F) Respiratory Rate 20 03/20/2019 10:53 PM EDT Oxygen Saturation 93% 03/20/2019 10:53 PM EDT Inhaled Oxygen Concentration - - Weight - - Height - - Body Mass Index - - documented in this encounter Discharge Instructions Wojciech Louise, - 03/20/2019Take medication as directed Follow-up with family doctor Return to the emergency department for worsening symptoms AttachmentsThe following attachments cannot be sent through Care Everywhere.MIGRAINE HEADACHE (AFTERCARE(R) INSTRUCTIONS(ER/ED)) (CONGOLESE) DEHYDRATION (DISCHARGE CARE) (CONGOLESE)documented in this encounter Plan of Treatment Date Type Specialty Care Team Description 04/04/2019 Office Visit Orthopedics Yosi Ferrell MD [address] [place] [address] 04/23/2019 Office Visit Family Practice Emile Pacheco MD [address] [place] [phone] 05/30/2019 Office Visit Neurology Archie Marx CRNP [address] [place] [address] [phone] 08/07/2019 Office Visit Neurology Archie Marx CRNP [address] [place] [address] Name Type Priority Associated Diagnoses Date/Time INPT/ED 12 LEAD EKG EKG STAT 03/20/2019 6:19 PM EDT LEVETIRACETAM LEVEL Lab STAT 03/20/2019 6:13 PM EDT Health Maintenance Due Date Last Done Comments PNEUMOCOCCAL 0-64 YRS (1 of 3 - 08/13/1987 PCV13) INFLUENZA VACCINE (#1) 2019 HIV SCREENING 05/08/2019 Postponed from 1996 (Patient refused) DEPRESSION SCREENING 05/11/2019 05/11/2018 PAP SMEAR 05/11/2022 Postponed from 1981 (Patient has other medical reasons) HPV IMMUNIZATION SERIES Aged Out No longer eligible based on patient's age to complete this topic MENINGOCOCCAL VACCINE IMM Aged Out No longer eligible based on patient's age to complete this topic documented as of this encounter Goals Goal Patient Goal Associated Recent Patient-Stated? Author Type Problems Progress Depression Depression No staci Bonilla (PHQ-9) MARCIE Bro total score < 5 Note: This is an individualized treatment (depression) goal for Kalyani Dowling: Displayed above is your goal for a depression screening (PHQ-9) score that would indicate good control of your depression. 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 Keep a regular sleep schedule Lifestyle No Adali Bonilla RN Note: This is an individualized lifestyle goal for Kalyani Dowling: Please maintain a regular sleep schedule. This may help with some symptoms of depression. Regular appointments with primary care provider Lifestyle No Adali Bonilla RN (PCP) Note: This is an individualized lifestyle goal for Kalyani Dowling: Please schedule regular visits with your primary care provider (PCP). Care provided in your PCP's office can help reduce your need for additional trips to the Emergency Room. Take all prescribed medications as directed Self-management No Adali Bonilla RN Note: This is an individualized self-management goal for Kalyani Dowling: Please take all prescribed medications as directed. 1. Do not skip doses. If you cannot afford your medications, talk with your doctor. 2. Use a pill reminder system such as a pill box if needed. Your pharmacist can help you with this. 3. Contact your Pharmacy 5 days before your medication runs out. If you cannot take your medications for any reasons, talk with your doctor. 4. Please bring all of your medication bottles and inhalers (or a list of all your medications/inhalers) with you to every visit. Potential barriers to meeting all of your care plan goals will continue to be addressed on an ongoing basis. documented as of this encounter Procedures Procedure Name Priority Date/Time Associated Comments Diagnosis XR CHEST 2 VIEW PA AND STAT 03/20/2019 7:21 Results for this LATERAL (STANDARD) PM EDT procedure are in the results section. CT HEAD WITHOUT IV STAT 03/20/2019 7:18 Results for this CONTRAST PM EDT procedure are in the results section. URINE MICROSCOPIC WITH STAT 03/20/2019 7:01 Results for this REFLEX CULTURE PM EDT procedure are in the results section. URINALYSIS (LAB) WITH STAT 03/20/2019 7:01 Results for this REFLEX CULTURE PM EDT procedure are in the results section. URINE DRUG SCREEN STAT 03/20/2019 7:01 Results for this PM EDT procedure are in the results section. URINE CULTURE (C&S) STAT 03/20/2019 7:01 Results for this PM EDT procedure are in the results section. CBC WITH DIFFERENTIAL STAT 03/20/2019 6:13 Results for this PM EDT procedure are in the results section. HCG QUALITATIVE SERUM STAT 03/20/2019 6:13 Results for this PM EDT procedure are in the results section. VALPROIC ACID STAT 03/20/2019 6:13 Results for this PM EDT procedure are in the results section. TROPONIN STAT 03/20/2019 6:13 Results for this PM EDT procedure are in the results section. THYROID STIMULATING STAT 03/20/2019 6:13 Results for this HORMONE PM EDT procedure are in the results section. MAGNESIUM LEVEL STAT 03/20/2019 6:13 Results for this PM EDT procedure are in the results section. COMPREHENSIVE STAT 03/20/2019 6:13 Results for this METABOLIC PANEL PM EDT procedure are in the results section. documented in this encounter Results XR CHEST 2 VIEW PA AND LATERAL (STANDARD) (03/20/2019 7:21 PM EDT) Specimen Impressions Performed At 1. Normal chest. Signed by Dustin Fisher on 03/20/2019 7:51 PM Narrative Performed At Procedure: XR CHEST 2 VIEW PA AND LATERAL (STANDARD) Date of service: 03/20/2019 7:21 PM History: 38 years, Female, "chest pain sob" Comparison: 01/11/19 Findings: The cardiomediastinal silhouette is within normal limits. The lungs are clear. There is no pleural effusion or pneumothorax. The bones are unremarkable. Procedure Note Interface, Rad Results - 03/20/2019 7:53 PM EDT Procedure: XR CHEST 2 VIEW PA AND LATERAL (STANDARD) Date of service: 03/20/2019 7:21 PM History: 38 years, Female, "chest pain sob" Comparison: 01/11/19 Findings: The cardiomediastinal silhouette is within normal limits. The lungs are clear. There is no pleural effusion or pneumothorax. The bones are unremarkable. IMPRESSION 1. Normal chest. Signed by Dustin Fisher on 03/20/2019 7:[address] HEAD WITHOUT IV CONTRAST (03/20/2019 7:18 PM EDT) Specimen Impressions Performed At No acute intracranial abnormality by CT imaging. Signed by Sawyer Banuelos on 03/20/2019 7:53 PM Narrative Performed At Procedure(s): CT HEAD WITHOUT IV CONTRAST Date of service: 03/20/2019 7:09 PM Provided clinical information: 38 years, Female, "Syncope/fainting" Procedure and materials: Standard protocol. Contrast: Comparison: January,. FINDINGS: Negative for acute intracranial hemorrhage. Maintained priest-white differentiation. No large extra-axial fluid collections. No ventriculomegaly. Preserved cisterns. Surrounding soft tissues and osseous structures appear grossly unremarkable. Procedure Note Interface, Rad Results - 03/20/2019 7:55 PM EDT Procedure(s): CT HEAD WITHOUT IV CONTRAST Date of service: 03/20/2019 7:09 PM Provided clinical information: 38 years, Female, "Syncope/fainting" Procedure and materials: Standard protocol. Contrast: Comparison: January,. FINDINGS: Negative for acute intracranial hemorrhage. Maintained priest-white differentiation. No large extra-axial fluid collections. No ventriculomegaly. Preserved cisterns. Surrounding soft tissues and osseous structures appear grossly unremarkable. IMPRESSION No acute intracranial abnormality by CT imaging. Signed by Sawyer Banuelos on 03/20/2019 7:53 PM URINE CULTURE (C&S) (03/20/2019 7:01 PM EDT) Urine Culture 50,000 CFU/mL [facility] multiple species-no LABORATORY workup Specimen Urine - Urine specimen obtained by clean catch procedure (specimen) Performing Organization Address City/State/Zipcode Phone Number [facility] [address] [place] [address] URINE MICROSCOPIC WITH REFLEX CULTURE (03/20/2019 7:01 PM EDT) Urine Wbc 10-25 (A) 0 - 5 /HPF [facility] Urine Rbc FEW 0 - 2 /HPF [facility] Urine Epithelial 4+ None Seen /HPF [facility] Urine Bacteria 2+ None Seen /HPF [facility] Urine Mucus Present (A) Negative [facility] Specimen Urine - Urine specimen obtained by clean catch procedure (specimen) Performing Organization Address City/[facility] Phone Number [facility] [address] [facility] [place] [address] [phone] URINE DRUG SCREEN (03/20/2019 7:01 PM EDT) Amphetamines Negative Negative [facility] Barbiturates Negative Negative [facility] Benzodiazepine Negative Negative [facility] Cannabinoids Negative Negative [facility] Cocaine Negative Negative [facility] Methadone Negative Negative [facility] Opiates Negative Negative [facility] Oxycodone Negative Negative [facility] Phencyclidine Negative Negative [facility] Propoxyphene Negative Negative [facility] Specimen Urine - Urine specimen obtained by clean catch procedure (specimen) Narrative Performed At Drug Name [facility] Cut-off Level Amphetamine (AMP/METH) 1000 ng/ml Barbiturates (JOSE ARMANDO) 300 ng/ml Benzodiazepines (JOSELYN) 300 ng/ml Cannabinoids (THC) 50 ng/ml Cocaine (BRAEDEN) 300 ng/ml Methadone (MTD) 300 ng/ml Opiates (OPI) 2000 ng/ml Oxycodone (OXY) 100 ng/ml Phencyclidine (PCP) 25 ng/ml Propoxyphene (PPX) 300 ng/ml Test results from this drug screen are to be used for medical purposes only. If positive, the sample is presumed to contain detectable drug concentrations equal to or greater than the cut-off concentrations listed above. A positive result indicates the presence of the drug or drug metabolite and does not indicate the level of intoxication or urinary concentration. Confirmation is available upon request to [facility]. Request for confirmation must be made within 5 days of the drug screen result. Performing Organization Address City/State/[facility] Phone Number [facility] [address] [place] [address] [phone] URINALYSIS (LAB) WITH REFLEX CULTURE (03/20/2019 7:01 PM EDT) Urine Color Yellow Yellow [facility] Urine Appearance Cloudy (A) Clear [facility] Urine Glucose Negative Negative mg/dl [facility] Urine Bilirubin Small (A) Negative [facility] Urine Ketones 15 (A) Negative [facility] Urine Specific 1.023 1.005 - 1.030 [facility] Urine Blood Negative Negative [facility] Urine Ph 5.5 5.0 - 8.0 [facility] Urine Protein Negative Negative mg/dl [facility] Urine Urobilinogen 1.0 0.2 - 1.0 [facility] Urine Nitrite Negative Negative [facility] Urine Leukocytes Small (A) Negative [facility] Specimen Urine - Urine specimen obtained by clean catch procedure (specimen) Performing Organization Address [facility] Phone Number [facility] [address] [place] [address] MAGNESIUM LEVEL (03/20/2019 6:13 PM EDT) Magnesium 2.0 1.6 - 2.3 MG/DL [facility] Specimen Blood - Blood specimen (specimen) Performing Organization Address [facility] Phone Number [facility] [address] [place] [address] THYROID STIMULATING HORMONE (03/20/2019 6:13 PM EDT) TSH 3.30 0.47 - 4.68 uIu/ml [facility] Specimen Blood - Blood specimen (specimen) Performing Organization Address [facility] Phone Number [facility] [address] [place] [phone] TROPONIN (03/20/2019 6:13 PM EDT) Troponin <0.012 0.000 - 0.034 [facility] Comment: ng/ml GROUP LABORATORY Negative less than or equal to 0.034 ng/ml Indeterminate 0.0351 - 0.119 ng/ml (Suggest Repeat in 4 Hours) Critical (AMI Cutoff) greater than or equal to 0.120 ng/ml Specimen Blood - Blood specimen (specimen) Performing Organization Address City/State/Zipcode Phone Number [facility] [address] [facility] [place] [address] COMPREHENSIVE METABOLIC PANEL (03/20/2019 6:13 PM EDT) Sodium 141 134 - 145 mmol/L [facility] Potassium 3.5 3.5 - 5.1 mmol/L [facility] Chloride 100 98 - 107 mmol/L [facility] CO2 30 22 - 30 mmol/L [facility] Calcium 9.6 8.3 - 10.1 mg/dl [facility] Albumin 4.3 3.5 - 5.0 g/dl [facility] BUN 13 7 - 17 mg/dl [facility] Creatinine 0.7 0.7 - 1.2 mg/dl [facility] Glucose 82 70 - 99 mg/dl [facility] Total Protein 8.1 6.3 - 8.2 g/dl [facility] Total Bilirubin 0.5 0.0 - 1.1 MG/DL [facility] AST 24 15 - 46 U/L [facility] ALT 21 9 - 52 U/L [facility] Alkaline 98 40 - 150 U/L [facility] Phosphatase [facility] eGFR >60 See Interpretation [facility] Comment: Below ml/min/1.73ml GROUP Estimated GFR Interpretation: Sq LABORATORY Above 60ml/min/1.73m2 = Normal Renal Function 30-59 ml/min/1.73m2 = Stage 3 Chronic Kidney Disease 15-29 ml/min/1.73m2 = Stage 4 Chronic Kidney Disease Less than 15 ml/min/1.73m2 = Stage 5 Chronic Kidney Disease The GFR value is calculated using the Modification of Diet in Renal Disease ( MDRD) Study Equation which can be found at: https://www.kidney.org/content/fgva-oyfiu-gknkywor BUN/Creatinine 19 6 - 22 RATIO [facility] GROUP LABORATORY Anion Gap 11 3 - 11 mmol/L [facility] A/G Ratio 1.1 0.8 - 2.0 ratio [facility] Specimen Blood - Blood specimen (specimen) Performing Organization Address City/State/Zipcode Phone Number [facility] [address] [facility] [place] [address] [phone] CBC WITH DIFFERENTIAL (03/20/2019 6:13 PM EDT) WBC Count 8.71 3.98 - 10.04 K/uL [facility] RBC Count 4.55 3.93 - 5.22 M/UL [facility] Hemoglobin 13.4 11.2 - 15.7 g/dL [facility] Hematocrit 40.6 34.1 - 44.9 % [facility] MCV 89.2 79.4 - 94.8 FL [facility] MCH 29.5 25.6 - 32.2 PG [facility] MCHC 33.0 32.2 - 35.5 g/dL [facility] Platelet Count 265 182 - 369 K/uL [facility] MPV 10.2 9.4 - 12.3 FL [facility] RDW 13.0 11.7 - 14.4 % [facility] Neutrophil % 51.3 34.0 - 71.1 % [facility] Lymphocyte % 39.5 19.3 - 51.7 % [facility] Monocyte % 5.3 4.7 - 12.5 % [facility] Eosinophil % 3.2 0.7 - 5.8 % [facility] Basophil % 0.5 0.1 - 1.2 % [facility] nRBC % 0.0 0.0 - 0.2 % [facility] Neutrophil # 4.47 1.56 - 6.13 K/UL [facility] Lymphocyte # 3.44 1.18 - 3.74 K/UL [facility] Monocyte # 0.46 0.24 - 0.86 K/UL [facility] Eosinophil # 0.28 0.04 - 0.36 K/UL [facility] Basophil # 0.04 0.01 - 0.08 K/UL [facility] Immature Gran % 0.2 0.0 - 0.4 % [facility] Immature Gran # 0.02 0.00 - 0.03 K/uL [facility] NRBC # 0.00 0.00 - 0.12 K/uL [facility] Specimen Blood - Blood specimen (specimen) Performing Organization Address [facility] Phone Number [facility] [address] [place] [address] VALPROIC ACID (03/20/2019 6:13 PM EDT) Valproic Acid 45.6 (L) 50.0 - 120.0 UG/ML [facility] Specimen Blood - Blood specimen (specimen) Performing Organization Address [facility] Phone Number [facility] [address] [place] [address] [phone] HCG QUALITATIVE SERUM (03/20/2019 6:13 PM EDT) Hcg Qualitative Serum Negative Negative [facility] Specimen Blood - Blood specimen (specimen) Performing Organization Address [facility] Phone Number [facility] [address] [place] [address] documented in this encounter Visit Diagnoses Diagnosis Syncope, unspecified syncope type - Primary Dehydration Other migraine without status migrainosus, not intractable documented in this encounter Administered Medications Medication Order MAR Action Action Date Dose Rate Site dexamethasone (DECADRON) injection Given 03/20/2019 9:22 PM EDT 6 mg 6 mg 6 mg, Intravenous Push, NOW, 1 dose, 03/20/19 at 2105 diphenhydrAMINE (BENADRYL) injection 50 mg Given 03/20/2019 9:22 PM EDT 50 mg 50 mg, Intravenous Push, NOW, 1 dose, 03/20/19 at 2105 ibuprofen (MOTRIN) tablet 600 mg Given 03/20/2019 6:45 PM EDT 600 mg 600 mg, Oral, NOW, 1 dose, 03/20/19 at 1845 normal saline bolus 1,000 mL New Bag 03/20/2019 9:22 PM EDT 1,000 mL 1,000 mL, Intravenous, BOLUS, 1 dose, 03/20/19 at 2205 prochlorperazine (COMPAZINE) injection 10 mg Given 03/20/2019 9:22 PM EDT 10 mg 10 mg, Intravenous Push, NOW, 1 dose, Mon03/20/19 at 2105 prochlorperazine (COMPAZINE) tablet 10 mg Given 03/20/2019 6:45 PM EDT 10 mg 10 mg, Oral, NOW, 1 dose, Mon03/20/19 at 1845 documented in this encounter Guarantor Name Account Type Relation to Date of Phone Billing Address Patient Kalyani Dowling Personal/Family 1980 [address] [facility] (Work) [place] [phone] documented as of this encounter Advance Directives Code Status Date Activated Date Inactivated Comments Full Code 11/24/2018 1:15 AM 11/28/2018 7:07 AM Does the patient have decision making capacity? Yes Order was discussed with: Patient I discussed all options and patient/surrogate requested and agreed to: Full Code
--- OUTSIDE RECORDS SUMMARY | 2019-05-03 04:55 | XMS REPORT | Summary of Care ---
:1980 Author Organization [facility] Address [address] [address] Care Team Providers Name Role Phone PachecoEmile noland Primary Care Provider Reason for Visit Reason Comments Arm Pain Encounter Details Date Type Department Care Team Description 03/08/2019 Emergency [facility] Emergency Department Emergency [address] [id number] Allergies Active Allergy Reactions Severity Noted Date Comments Tape: Silk Or Adhesive Respiratory Reaction 12/20/2016 Bee Anaphylaxis 01/26/2017 Latex Respiratory Reaction 12/20/2016 Mushrooms Hives 11/28/2018 Tramadol Other 12/20/2016 Mood change documented as of this encounter (statuses as of 03/09/2019) Medications Medication Sig Dispensed Refills Start Date [...] as of this encounter (statuses as of 03/09/2019) Active Problems Problem Noted Date Spell of [...] nature. Heart score of 1 (smoking). Echo 2017: normal EF w/o regional wall abnormalities. -Trend [...] as of this encounter (statuses as of 03/09/2019) Resolved Problems Problem Noted Date Resolved Date Fall 01/26/2017 08/07/2017 Syncope 01/26/2017 02/12/2018 documented as of this encounter (statuses as of 03/09/2019) Social History Tobacco Use Types Packs/Day Years [...] Sign Reading Time Taken Comments Blood Pressure 115/84 03/08/2019 7:25 PM EDT Pulse 97 03/08/2019 7:25 PM EDT Temperature 36.4 03/08/2019 7:25 PM EDT C (97.5 F) Respiratory Rate 18 03/08/2019 7:25 PM EDT Oxygen Saturation 98% 03/08/2019 7:31 PM EDT Inhaled Oxygen Concentration - - Weight 77.1 kg (170 lb) 03/08/2019 7:25 PM EDT Height 160 cm (5' 3") 03/08/2019 7:25 PM EDT Body Mass Index 30.11 03/08/2019 7:25 PM EDT documented in this encounter Discharge Instructions Arpita Stevens PA-C - 03/08/2019 No further testing is indicated, however should your condition change return for re-evaluation or seeing your PCP is recommended. Rest, Ice elevate. May use sling for next 2 days for support, no compression advised currently. SLiong no longer than 3 days wihtout PCP follow up , want to avoid frozen shoulder. Xr Elbow Min 3 Views Left (standard) Result Date: 03/08/2019 Procedure(s): XR ELBOW MIN 3 VIEWS LEFT (STANDARD), XR FOREARM 2 VIEWS LEFT ( STANDARD), XR HAND MIN 3 VIEWS LEFT (STANDARD) Date of service: 03/08/2019 9:18 PM Provided clinical information: 38 years, Female, "pain, injury" Technique: 3 views of the elbow, 4 views of the left hand and 3 views of the left forearm were acquired. Findings: There is no acutely displaced fracture or dislocation. The osseous structures are normally mineralized. There is no radiopaque foreign body. The joint spaces are maintained. There is no acute displaced fracture or dislocation. Xr Forearm 2 Views Left (standard) Result Date: 03/08/2019 Procedure(s): XR ELBOW MIN 3 VIEWS LEFT (STANDARD), XR FOREARM 2 VIEWS LEFT ( STANDARD), XR HAND MIN 3 VIEWS LEFT (STANDARD) Date of service: 03/08/2019 9:18 PM Provided clinical information: 38 years, Female, "pain, injury" Technique: 3 views of the elbow, 4 views of the left hand and 3 views of the left forearm were acquired. Findings: There is no acutely displaced fracture or dislocation. The osseous structures are normally mineralized. There is no radiopaque foreign body. The joint spaces are maintained. There is no acute displaced fracture or dislocation. Xr Hand Min 3 Views Left (standard) Result Date: 03/08/2019 Procedure(s): XR ELBOW MIN 3 VIEWS LEFT (STANDARD), XR FOREARM 2 VIEWS LEFT ( STANDARD), XR HAND MIN 3 VIEWS LEFT (STANDARD) Date of service: 03/08/2019 9:18 PM Provided clinical information: 38 years, Female, "pain, injury" Technique: 3 views of the elbow, 4 views of the left hand and 3 views of the left forearm were acquired. Findings: There is no acutely displaced fracture or dislocation. The osseous structures are normally mineralized. There is no radiopaque foreign body. The joint spaces are maintained. There is no acute displaced fracture or dislocation. Xr Hand Min 3 Views Left (standard) Diagnosis: ICD-9-CM ICD-10-CM 1. Contusion of arm, left, initial encounter 923.9 S40.022A Medications: Take Tylenol or Ibuprofen as needed as directed on bottle for fever / pain. Adverse or side effects to medications are fairly common and we are unable to predict to whom it mayoccur to. Medication problems warrant a follow up visit or consultation with a medical provider. It the medication prescribed causes any concerns please contact us, or return for serious concerns, for minor concerns may return here if timely follow up with PCP is not possible. Patients who take coumadin need to contact their coumadin clinic if medications were added or discontinued during this ED visit. Antibiotics may interfere with oral control, and it is recommended to refrain from alcoholic beverages when taking antibiotics or pain medications. Activity/Restrictions: Activity as tolerated. Discharge Diet: No restrictions. Follow Up Care: It is recommended that you be seen by your regular doctor or family practice this week. Return to the Emergency Department or family provider immediately if condition worsens in any way. Smoking: If you or your caregiver smoke, we recommend that you quit. For smoking cessation help, please callthe National Quit Line at . ~SIGN AT THE BOTTOM OF THIS FORM TO INDICATE THAT YOU UNDERSTAND THESE DISCHARGE INSTRUCTIONS~ If you feel that your condition, or the condition of the person you are responsible for, is getting worse or if you develop new symptoms, please return to the Emergency Department for re-evaluation. If you feel that your condition is not improving within the time you expect it to, please return to the Emergency Department or arrange for a re-evaluation with your primary care provider. Your information from today's Emergency Department visit will be forwarded to your primary care provider. If you do not have a primary care provider, please call [facility] at [phone]. An Emergency Department visit is not a substitute for health maintenance. The Emergency Department does not screen forhealth problems or provide ongoing care for chronic problems. Ariela recommends that patients establish a relationship with a primary care physician to address health screening and to organize care for chronic problems. documented in this encounter Plan of Treatment Date Type Specialty Care Team Description 04/04/2019 Office Visit Orthopedics Yosi Ferrell MD [address] [address] 04/23/2019 Office Visit Family Practice Emile Pacheco MD [address] [phone] 05/30/2019 Office Visit Neurology Archie Marx CRNP [address] [address] 08/07/2019 Office Visit Neurology Archie Marx CRNP [address] [address] Health Maintenance Due Date Last Done Comments [...] control of your depression. Work with your Guest Services General No Adali Bonilla RN Note: This is an individualized treatment (frequent ED use) goal for Kalyani Dowling: Please work with your Guest Services, who will assist you in meeting your [...] encounter Procedures Procedure Name Priority Date/Time Associated Diagnosis Comments XR FOREARM 2 VIEWS STAT 03/08/2019 9:39 PM Results for this LEFT (STANDARD) EDT procedure are in the results section. XR ELBOW MIN 3 STAT 03/08/2019 9:38 PM Results for this VIEWS LEFT EDT procedure are in (STANDARD) the results section. XR HAND MIN 3 VIEWS STAT 03/08/2019 9:37 PM Results for this LEFT (STANDARD) EDT procedure are in the results section. documented in this encounter Results XR FOREARM 2 VIEWS LEFT (STANDARD) (03/08/2019 9:39 PM EDT) Specimen Impressions Performed At There is no acute displaced fracture or dislocation. Signed by Alfonzo Morfin MD on 03/08/2019 10:35 PM Narrative Performed At Procedure(s): XR ELBOW MIN 3 VIEWS LEFT (STANDARD), XR FOREARM 2 VIEWS LEFT (STANDARD), XR HAND MIN 3 VIEWS LEFT (STANDARD) Date of service: 03/08/2019 9:18 PM Provided clinical information: 38 years, Female, "pain, injury" Technique: 3 views of the elbow, 4 views of the left hand and 3 views of the left forearm were acquired. Findings: There is no acutely displaced fracture or dislocation. The osseous structures are normally mineralized. There is no radiopaque foreign body. The joint spaces are maintained. Procedure Note Interface, Rad Results - 03/08/2019 10:37 PM EDT Procedure(s): XR ELBOW MIN 3 VIEWS LEFT (STANDARD), XR FOREARM 2 VIEWS LEFT (STANDARD), XR HAND MIN 3 VIEWS LEFT (STANDARD) Date of service: 03/08/2019 9:18 PM Provided clinical information: 38 years, Female, "pain, injury" Technique: 3 views of the elbow, 4 views of the left hand and 3 views of the left forearm were acquired. Findings: There is no acutely displaced fracture or dislocation. The osseous structures are normally mineralized. There is no radiopaque foreign body. The joint spaces are maintained. IMPRESSION There is no acute displaced fracture or dislocation. Signed by Alfonzo Morfin MD on 03/08/2019 10:35 PM XR ELBOW MIN 3 VIEWS LEFT (STANDARD) (03/08/2019 9:38 PM EDT) Specimen Impressions Performed At There is no acute displaced fracture or dislocation. Signed by Alfonzo Morfin MD on 03/08/2019 10:35 PM Narrative Performed At Procedure(s): XR ELBOW MIN 3 VIEWS LEFT (STANDARD), XR FOREARM 2 VIEWS LEFT (STANDARD), XR HAND MIN 3 VIEWS LEFT (STANDARD) Date of service: 03/08/2019 9:18 PM Provided clinical information: 38 years, Female, "pain, injury" Technique: 3 views of the elbow, 4 views of the left hand and 3 views of the left forearm were acquired. Findings: There is no acutely displaced fracture or dislocation. The osseous structures are normally mineralized. There is no radiopaque foreign body. The joint spaces are maintained. Procedure Note Interface, Rad Results - 03/08/2019 10:37 PM EDT Procedure(s): XR ELBOW MIN 3 VIEWS LEFT (STANDARD), XR FOREARM 2 VIEWS LEFT (STANDARD), XR HAND MIN 3 VIEWS LEFT (STANDARD) Date of service: 03/08/2019 9:18 PM Provided clinical information: 38 years, Female, "pain, injury" Technique: 3 views of the elbow, 4 views of the left hand and 3 views of the left forearm were acquired. Findings: There is no acutely displaced fracture or dislocation. The osseous structures are normally mineralized. There is no radiopaque foreign body. The joint spaces are maintained. IMPRESSION There is no acute displaced fracture or dislocation. Signed by Alfonzo Morfin MD on 03/08/2019 10:35 PM XR HAND MIN 3 VIEWS LEFT (STANDARD) (03/08/2019 9:37 PM EDT) Specimen Impressions Performed At There is no acute displaced fracture or dislocation. Signed by Alfonzo Morfin MD on 03/08/2019 10:35 PM Narrative Performed At Procedure(s): XR ELBOW MIN 3 VIEWS LEFT (STANDARD), XR FOREARM 2 VIEWS LEFT (STANDARD), XR HAND MIN 3 VIEWS LEFT (STANDARD) Date of service: 03/08/2019 9:18 PM Provided clinical information: 38 years, Female, "pain, injury" Technique: 3 views of the elbow, 4 views of the left hand and 3 views of the left forearm were acquired. Findings: There is no acutely displaced fracture or dislocation. The osseous structures are normally mineralized. There is no radiopaque foreign body. The joint spaces are maintained. Procedure Note Interface, Rad Results - 03/08/2019 10:37 PM EDT Procedure(s): XR ELBOW MIN 3 VIEWS LEFT (STANDARD), XR FOREARM 2 VIEWS LEFT (STANDARD), XR HAND MIN 3 VIEWS LEFT (STANDARD) Date of service: 03/08/2019 9:18 PM Provided clinical information: 38 years, Female, "pain, injury" Technique: 3 views of the elbow, 4 views of the left hand and 3 views of the left forearm were acquired. Findings: There is no acutely displaced fracture or dislocation. The osseous structures are normally mineralized. There is no radiopaque foreign body. The joint spaces are maintained. IMPRESSION There is no acute displaced fracture or dislocation. Signed by Alfonzo Morfin MD on 03/08/2019 10:35 PM documented in this encounter Visit Diagnoses Diagnosis Contusion of arm, left, initial encounter - Primary documented in this encounter Administered Medications Medication Order MAR Action Action Date Dose Rate Site acetaminophen (TYLENOL) tablet Given 03/08/2019 9:04 PM EDT 650 mg 650 mg 650 mg, Oral, X1, 1 dose, First dose on Mon03/08/19 at 2105 documented in this encounter documented as of this encounter Advance Directives Code Status Date Activated Date Inactivated Comments Full Code 11/24/2018 1:15 AM 11/28/2018 7:07 AM Does the patient have decision making capacity? Yes Order was discussed with: Patient I discussed all options and patient/surrogate requested and agreed to: Full Code
--- OUTSIDE RECORDS SUMMARY | 2019-05-03 04:55 | XMS REPORT ---
:1980 Author Name Stefany Alvarado Address [address] [address] Care Team Providers Name Role Phone Stefany Alvarado Unavailable Unavailable Arianne Spencer Unavailable Unavailable Allergies, Adverse Reactions, Alerts Allergy Code CodeSystem Reaction Severity Status Substance RxNorm Medications Medication Medication Medication Start Route Dose Status Fill Code CodeSystem Date Instructions RxNorm NoCurrentDosage Active NoCurrentFrequency RxNorm NoCurrentDosage Active NoCurrentFrequency RxNorm NoCurrentDosage Active NoCurrentFrequency RxNorm NoCurrentDosage Active NoCurrentFrequency RxNorm NoCurrentDosage Active NoCurrentFrequency Hospital Discharge Medications Medication Direction Start Date Status Indications Fill Instuctions No Discharge Medication Problems Problem Name Code CodeSystem Start Date End Date Status SNOMED-CT 2019-01-09 Active Laboratory Values/Results Test Test Code Code System Actual Result Date LOINC Procedures Procedure Name Code CodeSystem Target Site Date of Procedure SNOMED-CT () 2019-01-09 SNOMED-CT () 2019-02-12 Encounter Diagnosis Code CodeSystem Description Date Finding Finding Code Status 12499 CPT Non-Billable 2019-01-28 - SNOMED-CT Active 4 Vital Signs Vitals Date Value Immunizations Vaccine Name Vaccine Code CodeSystem Date Status Social History Element Description Start Date End Date Code CodeSystem Description SNOMED-CT Hospital Discharge Instructions Reason For Referral
--- OUTSIDE RECORDS SUMMARY | 2019-05-03 04:55 | XMS REPORT | Summary of Care ---
:1980 Author Organization [facility] Address [address] [place] [address] Care Team Providers Name Role Phone Emile Pacheco Primary Care Provider Reason for Visit Reason Comments Headache Encounter Details Date Type Department Care Team Description 03/04/2019 Emergency [facility] Emergency Department Madhu Nieto DO Emergency [address] [place] [phone] [place] [address] [phone] Allergies Active Allergy Reactions Severity Noted Date Comments Tape: Silk Or Adhesive Respiratory Reaction 12/20/2016 Bee Anaphylaxis 01/26/2017 Latex Respiratory Reaction 12/20/2016 Mushrooms Hives 11/28/2018 Tramadol Other 12/20/2016 Mood change documented as of this encounter (statuses as of 03/05/2019) Medications Medication Sig Dispensed Refills Start Date [...] as of this encounter (statuses as of 03/05/2019) Active Problems Problem Noted Date Spell of [...] as of this encounter (statuses as of 03/05/2019) Resolved Problems Problem Noted Date Resolved Date Fall 01/26/2017 08/07/2017 Syncope 01/26/2017 02/12/2018 documented as of this encounter (statuses as of 03/05/2019) Social History Tobacco Use Types Packs/Day Years [...] Sign Reading Time Taken Comments Blood Pressure 142/84 03/04/2019 9:55 PM EDT Pulse 84 03/04/2019 9:55 PM EDT Temperature 36.2 03/04/2019 5:31 PM EDT C (97.1 F) Respiratory Rate 18 03/04/2019 9:55 PM EDT Oxygen Saturation 98% 03/04/2019 9:55 PM EDT Inhaled Oxygen Concentration - - Weight - - Height - - Body Mass Index - - documented in this encounter Discharge Instructions InstructionsMadhu Nieto DO - 03/04/2019Close observation at home Please follow-up with your primary care physician Return to the ER as needed AttachmentsThe following attachments cannot be sent through Care Everywhere.ACUTE HEADACHE (AFTERCARE(R) INSTRUCTIONS(ER/ED)) (POLISH) documented in this encounter Plan of Treatment Date Type Specialty Care Team Description 04/04/2019 Office Visit Orthopedics Yosi Ferrell MD [address] [address] 04/23/2019 Office Visit Family Practice Emile Pacheco MD [address] [place] [phone] 05/30/2019 Office Visit Neurology Archie Marx CRNP [address] [address] 08/07/2019 Office Visit Neurology Archie Marx CRNP [address] [address] Name Type Priority Associated Diagnoses Date/Time INPT/ED 12 LEAD EKG EKG STAT 03/04/2019 6:48 PM EDT Health Maintenance Due Date Last [...] control of your depression. Work with your Food Safety Officer General No Adali Bonilla RN Note: This is an individualized treatment (frequent ED use) goal for Kalyani Dowling: Please work with your Food Safety Officer, who will assist you in meeting your [...] Procedure Name Priority Date/Time Associated Comments Diagnosis VALPROIC ACID STAT 03/04/2019 8:26 Results for this PM EDT procedure are in the results section. CBC WITH DIFFERENTIAL STAT 03/04/2019 6:57 Results for this PM EDT procedure are in the results section. COMPREHENSIVE STAT 03/04/2019 6:57 Results for this METABOLIC PANEL PM EDT procedure are in the results section. documented in this encounter Results VALPROIC ACID (03/04/2019 8:26 PM EDT) Valproic Acid 47.1 (L) 50.0 - 120.0 UG/ML [facility] Specimen Blood - Blood specimen (specimen) Performing Organization Address City/State/Zipcode Phone Number [facility] [address] [facility] [place] [address] [phone] COMPREHENSIVE METABOLIC PANEL (03/04/2019 6:57 PM EDT) Sodium 138 134 - 145 mmol/L [facility] Potassium 3.9 3.5 - 5.1 mmol/L [facility] Chloride 101 98 - 107 mmol/L [facility] CO2 28 22 - 30 mmol/L [facility] Calcium 9.4 8.3 - 10.1 mg/dl [facility] Albumin 4.2 3.5 - 5.0 g/dl [facility] BUN 22 (H) 7 - 17 mg/dl [facility] Creatinine 0.7 0.7 - 1.2 mg/dl [facility] Glucose 104 (H) 70 - 99 mg/dl [facility] Total Protein 7.8 6.3 - 8.2 g/dl [facility] Total Bilirubin 0.3 0.0 - 1.1 MG/DL [facility] AST 19 15 - 46 U/L [facility] ALT 17 9 - 52 U/L [facility] Alkaline 85 40 - 150 U/L [facility] Phosphatase [facility] eGFR >60 See Interpretation [facility] Comment: Below ml/min/1.73ml GROUP Estimated GFR Interpretation: Sq LABORATORY Above 60ml/min/1.73m2 = Normal Renal Function 30-59 ml/min/1.73m2 = Stage 3 Chronic Kidney Disease 15-29 ml/min/1.73m2 = Stage 4 Chronic Kidney Disease Less than 15 ml/min/1.73m2 = Stage 5 Chronic Kidney Disease The GFR value is calculated using the Modification of Diet in Renal Disease ( MDRD) Study Equation which can be found at: https://www.kidney.org/content/ssao-njoop-kypjvaji BUN/Creatinine 31 (H) 6 - 22 RATIO [facility] GROUP LABORATORY Anion Gap 9 3 - 11 mmol/L [facility] A/G Ratio 1.2 0.8 - 2.0 ratio [facility] Specimen Blood - Blood specimen (specimen) Performing Organization Address City/State/Zipcode Phone Number [facility] [address] [facility] [place] [address] [phone] CBC WITH DIFFERENTIAL (03/04/2019 6:57 PM EDT) WBC Count 9.53 3.98 - 10.04 K/uL [facility] RBC Count 4.71 3.93 - 5.22 M/UL [facility] Hemoglobin 13.9 11.2 - 15.7 g/dL [facility] Hematocrit 41.6 34.1 - 44.9 % [facility] MCV 88.3 79.4 - 94.8 FL [facility] MCH 29.5 25.6 - 32.2 PG [facility] MCHC 33.4 32.2 - 35.5 g/dL [facility] Platelet Count 266 182 - 369 K/uL [facility] MPV 10.1 9.4 - 12.3 FL [facility] RDW 13.3 11.7 - 14.4 % [facility] Neutrophil % 46.8 34.0 - 71.1 % [facility] Lymphocyte % 38.6 19.3 - 51.7 % [facility] Monocyte % 7.2 4.7 - 12.5 % [facility] Eosinophil % 6.4 (H) 0.7 - 5.8 % [facility] Basophil % 0.6 0.1 - 1.2 % [facility] nRBC % 0.0 0.0 - 0.2 % [facility] Neutrophil # 4.45 1.56 - 6.13 K/UL [facility] Lymphocyte # 3.68 1.18 - 3.74 K/UL [facility] Monocyte # 0.69 0.24 - 0.86 K/UL [facility] Eosinophil # 0.61 (H) 0.04 - 0.36 K/UL [facility] Basophil # 0.06 0.01 - 0.08 K/UL [facility] Immature Gran % 0.4 0.0 - 0.4 % [facility] Immature Gran # 0.04 (H) 0.00 - 0.03 K/uL [facility] NRBC # 0.00 0.00 - 0.12 K/uL [facility] Specimen Blood - Blood specimen (specimen) Performing Organization Address City/State/Zipcode Phone Number [facility] [address] [place] [address] documented in this encounter Visit Diagnoses Diagnosis Muscle tension headache - Primary Tension headache documented in this encounter Administered Medications Medication Order MAR Action Action Date Dose Rate Site dexamethasone (DECADRON) injection Given 03/04/2019 8:58 PM EDT 6 mg 6 mg 6 mg, Intravenous Push, NOW, 1 dose, Mon03/04/19 at 2024 diphenhydrAMINE (BENADRYL) injection 50 mg Push 03/04/2019 8:58 PM EDT 50 mg 50 mg, Intravenous, NOW, 1 dose, Mon03/04/19 at 2024 metoclopramide (REGLAN) injection 10 mg Given 03/04/2019 8:57 PM EDT 10 mg 10 mg, Intravenous Push, NOW, 1 dose, Mon03/04/19 at 2024 normal saline bolus 1,000 mL New Bag 03/04/2019 8:57 PM EDT 1,000 mL 1,000 mL, Intravenous, BOLUS, 1 dose, Mon03/04/19 at 2024 documented in this encounter documented as of this encounter Advance Directives Code Status Date Activated Date Inactivated Comments Full Code 11/24/2018 1:15 AM 11/28/2018 7:07 AM Does the patient have decision making capacity? Yes Order was discussed with: Patient I discussed all options and patient/surrogate requested and agreed to: Full Code
--- OUTSIDE RECORDS SUMMARY | 2019-05-03 04:55 | XMS REPORT | Summary of Care ---
:1980 Author Organization [facility] Address [address] [address] Care Team Providers Name Role Phone Emile Pacheco Primary Care Provider Reason for Visit Reason Comments Congestion Earache Encounter Details Date Type Department Care Team Description 04/18/2019 Emergency [facility] Emergency Department Janay Fernandez MD Emergency [address] [id number] [place] [address] Allergies Active Allergy Reactions Severity Noted Date Comments Tape: Silk Or Adhesive Respiratory Reaction 12/20/2016 Bee Anaphylaxis 01/26/2017 Latex Respiratory Reaction 12/20/2016 Mushrooms Hives 11/28/2018 Tramadol Other 12/20/2016 Mood change documented as of this encounter (statuses as of 04/19/2019) Medications Medication Sig Dispensed Refills Start Date [...] bee sting) for up to 1 dose. ibuprofen (MOTRIN) 600 Take 1 Tab by 20 Tab 0 04/18/2019 Active MG Oral Tab mouth EVERY SIX HOURS NEEDED (pain) for up to 20 doses. albuterol HFA Take 2 Puffs by 18 g 0 04/18/2019 Active (VENTOLIN) 108 (90 inhalation EVERY Base) MCG/ACT FOUR HOURS Inhalation Aero Soln NEEDED (asthma exacerbation). pseudoephedrine Take 2 Tabs by 20 Tab 0 04/18/2019 Active (SUDAFED) 30 MG Oral mouth EVERY FOUR Tab HOURS NEEDED for Congestion for up to 10 doses. documented as of this encounter (statuses as of 04/19/2019) Active Problems Problem Noted Date Spell of [...] as of this encounter (statuses as of 04/19/2019) Resolved Problems Problem Noted Date Resolved Date Fall 01/26/2017 08/07/2017 Syncope 01/26/2017 02/12/2018 documented as of this encounter (statuses as of 04/19/2019) Social History Tobacco Use Types Packs/Day Years [...] Sign Reading Time Taken Comments Blood Pressure 132/79 04/18/2019 5:57 PM EST Pulse 98 04/18/2019 5:57 PM EST Temperature 36.2 04/18/2019 5:57 PM EST C (97.2 F) Respiratory Rate 18 04/18/2019 5:57 PM EST Oxygen Saturation 100% 04/18/2019 5:57 PM EST Inhaled Oxygen Concentration - - Weight - - Height - - Body Mass Index - - documented in this encounter Discharge Instructions Janay Correia MD - 04/18/2019He was seen in the ER for sore throat sinus congestion and nonproductive cough This is likely a viral infection and will improve with time and rest. Please increase your fluid intake. Please use Tylenol Motrin for symptom medic control. Use your albuterol inhaler as needed. You are treated with steroids here which will help to some formation in her throat and also your lungs. Please follow withher regular doctor and return to the ER if you have new or worsening symptoms. AttachmentsThe following attachments cannot be sent through Care Everywhere.Viral Upper Respiratory Infection Discharge Instructions, Adult ( Brazilian)documented in this encounter Plan of Treatment Date Type Specialty Care Team Description 04/23/2019 Office Visit Family Practice Emile Pacheco MD [address] [place] [phone] 05/30/2019 Office Visit Neurology Archie Marx CRNP [address] [address] 08/07/2019 Office Visit Neurology Archie MarxMANIHS [address] [address] [phone] Name Type Priority Associated Diagnoses Date/Time INPT/ED 12 LEAD EKG EKG STAT 04/18/2019 4:30 PM EST Health Maintenance Due Date Last Done Comments PNEUMOCOCCAL 0-64 YRS (1 of 3 - 08/13/1987 PCV13) INFLUENZA VACCINE (#1) 2019 HIV SCREENING 05/08/2019 Postponed from 1996 (Patient refused) DEPRESSION SCREENING 05/11/2019 05/11/2018 PAP SMEAR 05/11/2022 Postponed from 2002 (Patient has other medical reasons) HPV IMMUNIZATION [...] control of your depression. Work with your Acquisition Cost Estimator General No Adali Bonilla RN Note: This is an individualized treatment (frequent ED use) goal for Kalyani Dowling: Please work with your Acquisition Cost Estimator, who will assist you in meeting your [...] Name Priority Date/Time Associated Diagnosis Comments XR CHEST 2 VIEW PA STAT 04/18/2019 4:44 PM Results for this AND LATERAL EST procedure are in (STANDARD) the results section. IN PT/ED 12 LEAD STAT 04/18/2019 4:30 PM EKG EST documented in this encounter Results XR CHEST 2 VIEW PA AND LATERAL (STANDARD) (04/18/2019 4:44 PM EST) Specimen Impressions Performed At No radiographic evidence of active disease in the chest. Urgency: Routine. This is a routine medical imaging report. Recommendation: No specific imaging recommendation Signed by Jordy Galan on 04/18/2019 4:52 PM Narrative Performed At Procedure(s): XR CHEST 2 VIEW PA AND LATERAL (STANDARD) Date of service: 04/18/2019 4:38 PM Provided clinical information: 38 years, Female, "chest pain" Procedure: Standard protocol. Comparison: 03/20/2019 Observations: PA and lateral radiographs of the chest were obtained. The lungs are clear without evidence of focal airspace consolidation. There is no pulmonary vascular congestion. There is no pneumothorax or pleural effusion. The cardiomediastinal silhouette is stable. The included osseous structures are unchanged. Procedure Note Interface, Rad Results - 04/18/2019 4:54 PM EST Procedure(s): XR CHEST 2 VIEW PA AND LATERAL (STANDARD) Date of service: 04/18/2019 4:38 PM Provided clinical information: 38 years, Female, "chest pain" Procedure: Standard protocol. Comparison: 03/20/2019 Observations: PA and lateral radiographs of the chest were obtained. The lungs are clear without evidence of focal airspace consolidation. There is no pulmonary vascular congestion. There is no pneumothorax or pleural effusion. The cardiomediastinal silhouette is stable. The included osseous structures are unchanged. IMPRESSION No radiographic evidence of active disease in the chest. Urgency: Routine. This is a routine medical imaging report. Recommendation: No specific imaging recommendation Signed by Jordy Galan on 04/18/2019 4:52 PM documented in this encounter Visit Diagnoses Diagnosis Upper respiratory tract infection, unspecified type - Primary documented in this encounter Administered Medications Medication Order MAR Action Action Date Dose Rate Site dexamethasone (DECADRON) Given 04/18/2019 5:07 PM 10 mg Arm - Upper Right injection 10 mg EST 10 mg, Intramuscular, NOW, 1 dose, Julianne 04/18/19 at 1610 ibuprofen (MOTRIN) tablet 600 mg Given 04/18/2019 5:07 PM EST 600 mg 600 mg, Oral, NOW, 1 dose, Julianne 04/18/19 at 1610 pseudoephedrine (SUDAFED) tablet 30 mg Given 04/18/2019 5:07 PM EST 30 mg 30 mg, Oral, NOW, 1 dose, Julianne 04/18/19 at 1610 documented in this encounter Guarantor Name Account Type Relation to Date of Phone Billing Address Patient Kalyani Dowling Personal/Family 1980 [address] (Home) [place] [phone] [place], [place] (Work) [id number] documented as of this encounter Advance Directives Code Status Date Activated Date Inactivated Comments Full Code 11/24/2018 1:15 AM 11/28/2018 7:07 AM Does the patient have decision making capacity? Yes Order was discussed with: Patient I discussed all options and patient/surrogate requested and agreed to: Full Code
--- OUTSIDE RECORDS SUMMARY | 2019-05-03 04:55 | XMS REPORT | Summary of Care ---
:1980 Author Organization [facility] Address [address] [address] Care Team Providers Name Role Phone Emile Pacheco Primary Care Provider Reason for Visit Reason Comments Headache Encounter Details Date Type Department Care Team Description 04/09/2019 Emergency [facility] Emergency Department Agapito Garcia MD Emergency [address] [place] [phone] [place] [address] Allergies Active Allergy Reactions Severity Noted Date Comments Tape: Silk Or Adhesive Respiratory Reaction 12/20/2016 Bee Anaphylaxis 01/26/2017 Latex Respiratory Reaction 12/20/2016 Mushrooms Hives 11/28/2018 Tramadol Other 12/20/2016 Mood change documented as of this encounter (statuses as of 04/10/2019) Medications Medication Sig Dispensed Refills Start Date [...] as of this encounter (statuses as of 04/10/2019) Active Problems Problem Noted Date Spell of [...] as of this encounter (statuses as of 04/10/2019) Resolved Problems Problem Noted Date Resolved Date Fall 01/26/2017 08/07/2017 Syncope 01/26/2017 02/12/2018 documented as of this encounter (statuses as of 04/10/2019) Social History Tobacco Use Types Packs/Day Years [...] Sign Reading Time Taken Comments Blood Pressure 110/78 04/09/2019 8:12 PM EST Pulse 82 04/09/2019 8:12 PM EST Temperature 36.8 04/09/2019 8:12 PM EST C (98.2 F) Respiratory Rate 16 04/09/2019 5:41 PM EST Oxygen Saturation 100% 04/09/2019 8:12 PM EST Inhaled Oxygen Concentration - - Weight - - Height - - Body Mass Index - - documented in this encounter Discharge Instructions InstructionsAgapito Garcia MD - 04/09/2019Continue all regular medications Follow up with primary care documented in this encounter Plan of Treatment Date Type Specialty Care Team Description 04/23/2019 Office Visit Family Practice Emile Pacheco MD [address] [place] [phone] 05/30/2019 Office Visit Neurology Archie Marx CRNP [address] [address] 08/07/2019 Office Visit Neurology Archie Marx CRNP [address] [address] Name Type Priority Associated Diagnoses Date/Time INPT/ED 12 LEAD EKG EKG STAT 04/09/2019 8:39 PM EST Health Maintenance Due Date Last [...] control of your depression. Work with your Billet Cutter General No Adali Bonilla RN Note: This is an individualized treatment (frequent ED use) goal for Kalyani Dowling: Please work with your Billet Cutter, who will assist you in meeting your [...] Procedure Name Priority Date/Time Associated Diagnosis Comments VALPROIC ACID STAT 04/09/2019 8:55 PM Results for this EST procedure are in the results section. CHEM 8 I-STAT Routine 04/09/2019 8:52 PM Results for this (POCT) EST procedure are in the results section. documented in this encounter Results VALPROIC ACID (04/09/2019 8:55 PM EST) Valproic Acid 66.0 50.0 - 120.0 UG/ML [facility] Specimen Blood - Blood specimen (specimen) Performing Organization Address City/[facility] Phone Number [facility] [address] [address] [phone] CHEM 8 I-STAT (POCT) (04/09/2019 8:52 PM EST) Sodium i-STAT 138 136 - 145 POINT OF CARE mmol/L TESTING Potassium i-STAT 4.9 3.5 - 5.1 POINT OF CARE mmol/L TESTING Chloride i-STAT 104 98 - 107 POINT OF CARE mmol/L TESTING CO2 i-STAT 27 21 - 32 POINT OF CARE Comment: mmol/L TESTING Performed at: [facility] POCT Theron Willis MD, Laboratory Artificial Flowers Supervisor [address] [address] Glucose i-STAT 100 (H) 70 - 99 mg/dl POINT OF CARE Comment: TESTING Adult Normal Range = 70-99 to 30 days Normal Range = 60-99 BUN i-STAT 25 (H) 7 - 18 mg/dl POINT OF CARE TESTING Creatinine i-STAT 0.6 0.6 - 1.3 POINT OF CARE mg/dl TESTING Ion Calcium i-STAT 4.20 (L) 4.65 - 5.28 POINT OF CARE mg/dL TESTING Hemoglobin i-STAT 14.3 13.0 - 18.0 POINT OF CARE g/dL TESTING Hematocrit i-STAT 42 35 - 47 %PCV POINT OF CARE TESTING Specimen Blood - Blood specimen (specimen) Performing Organization Address City/[facility] Phone Number POINT OF CARE TESTING documented in this encounter Visit Diagnoses Diagnosis Nonintractable headache, unspecified chronicity pattern, unspecified headache type - Primary documented in this encounter Administered Medications Medication Order MAR Action Action Date Dose Rate Site dexamethasone (DECADRON) injection Given 04/09/2019 9:07 PM EST 6 mg 6 mg 6 mg, Intravenous Push, NOW, 1 dose, Mon04/09/19 at 2034 diphenhydrAMINE (BENADRYL) injection 25 mg Given 04/09/2019 9:08 PM EST 25 mg 25 mg, Intravenous Push, NOW, 1 dose, Mon04/09/19 at 2019 divalproex sodium (DEPAKOTE) enteric Given 04/09/2019 9:06 PM EST 1,000 mg coated tablet 1,000 mg 1,000 mg, Oral, X1, 1 dose, First dose on Mon04/09/19 at 2200, This medication dosage form should NOT be crushed. Please call the inpatient Pharmacy for more information. [facility] ext. [phone] [place] ext. [phone] [facility] ext. [phone] , levetiracetam (KEPPRA) tablet 750 mg Given 04/09/2019 9:06 PM EST 750 mg 750 mg, Oral, X1, 1 dose, First dose on Mon04/09/19 at 2200 metoclopramide (REGLAN) injection 10 mg Given 04/09/2019 9:07 PM EST 10 mg 10 mg, Intravenous Push, NOW, 1 dose, Mon04/09/19 at 2020 normal saline bolus 500 mL New Bag 04/09/2019 9:16 PM EST 500 mL 500 mL, Intravenous, BOLUS, 1 dose, Mon04/09/19 at 2130 prochlorperazine (COMPAZINE) injection 10 mg Given 04/09/2019 10:27 PM EST 10 mg 10 mg, Intravenous Push, NOW, 1 dose, Mon04/09/19 at 2225 documented in this encounter Guarantor Name Account Type Relation to Date of Phone Billing Address Patient Kalyani Dowling Personal/Family 1980 [address] [facility] (Work) [place] [phone] documented as of this encounter Advance Directives Code Status Date Activated Date Inactivated Comments Full Code 11/24/2018 1:15 AM 11/28/2018 7:07 AM Does the patient have decision making capacity? Yes Order was discussed with: Patient I discussed all options and patient/surrogate requested and agreed to: Full Code
[2019-05-03] MEDS ORDERED: Ibuprofen TAB* 400 MG PO ONE (05:14)
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
[2019-05-03 06:33] VITALS: BP 109/78
== END 2019-05-03 06:30 | disposition home or self-care (01) ==
LOC: ED 04:44
DX: S09.93XA Unspecified injury of face, initial encounter (principal); Y04.2XXA Assault by strike against or bumped into by another person, initial encounter; Y92.9 Unspecified place or not applicable; I10 Essential (primary) hypertension; J44.9 Chronic obstructive pulmonary disease, unspecified; F31.9 Bipolar disorder, unspecified; F17.210 Nicotine dependence, cigarettes, uncomplicated; Z90.89 Acquired absence of other organs; Z90.710 Acquired absence of both cervix and uterus; Z79.899 Other long term (current) drug therapy; Z88.5 Allergy status to narcotic agent; Z91.040 Latex allergy status
CPT/HCPCS: 70450; 70486; 99282; A9270-GY

== ENCOUNTER 2019-05-04 11:39 | Emergency (ER) | payer OTHER ==
[2019-05-04 11:59] VITALS: BP 126/87
[2019-05-04] MEDS ORDERED: Cyclobenzaprine TAB* 10 MG PO ONE (12:44)
--- NOTE | 2019-05-04 12:45 | UC ---
Back Pain HPI - HPI Summary HPI Summary: patient reports history of chronic low back pain---patient reports she twisted while lifting a bag of dog food yesterday--patient has no neurodeficits-gait steady and back feels tight--no urinary symptoms - History of Current Complaint Chief Complaint: UCBackPain Stated Complaint: LOWER BACK PAIN COUGH Time Seen by Provider: 05/04/19 12:23 Hx Obtained From: Patient Hx Last Menstrual Period: hyster ?: No Onset/Duration: Sudden Onset, Lasting Days - 1 Timing: Constant Pain Intensity: 6 Pain Scale Used: 0-10 Numeric Back Pain: Is Discrete @ - low back Character: Aching, Stiffness Aggravating Factor(s): Movement, Lifting, Bending, Walking Alleviating Factor(s): OTC Meds - tylenol Associated Signs And Symptoms: Negative: Weakness, Numbness, Tingling, Flank Pain, Bladder Incontinence, Bowel Incontinence Related History: Similar Episode Dx As - chronic back pain - Allergies/Home Medications Allergies/Adverse Reactions: Allergies Allergy/AdvReac Type Severity Reaction Status Date / Time Adhesive Tape AdvReac Intermediate Hives Verified 05/04/19 11:59 Latex, Natural Rubber AdvReac Intermediate Edema Verified 05/04/19 11:59 tramadol AdvReac Intermediate "get's Verified 05/04/19 11:59 violent" PMH/Surg Hx/FS Hx/Imm Hx Previously Healthy: No - chronic back pain Psychological History: Depression, Other - anger - Surgical History Surgical History: Yes Surgery Procedure, Year, and Place: L ear prostethis(PLASTIC BONES); HYSTERECTOMY; neck surgery; gallbladder removed; stomach surgery 2003--"tumors and cysts"; appendectomy - Family History Known Family History: Positive: Cardiac Disease, Diabetes, Other - Bipolar disorder, aunt with stage 4 lung cancer Negative: Hypertension - Social History 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 Lives: With Family Alcohol Use: None Substance Use Type: None Smoking Status (MU): Current Some Day Smoker Type: Cigarettes Amount Used/How Often: 1/2 ppd Length of Time of Smoking/Using Tobacco: 15 yrs Have You Smoked in the Last Year: Yes Household Exposure Type: Cigarettes Review of Systems All Other Systems Reviewed And Are Negative: Yes Constitutional: Positive: Negative Skin: Positive: Negative Eyes: Positive: Negative ENT: Positive: Negative Respiratory: Positive: Negative Cardiovascular: Positive: Negative Gastrointestinal: Positive: Negative Genitourinary: Positive: Negative Motor: Positive: Decreased ROM - low ba Neurovascular: Positive: Negative Musculoskeletal: Positive: Arthralgia - low back, Myalgia - low back Neurological: Positive: Negative Psychological: Positive: Negative Is Patient Immunocompromised?: No Physical Exam Triage Information Reviewed: Yes Appearance: Well-Appearing, Well-Nourished, Pain Distress - mild discomfort Vital Signs: Initial Vital Signs Temp 98.6 F 05/04/19 11:56 Pulse 88 05/04/19 11:56 Resp 17 05/04/19 11:56 BP 126/87 05/04/19 11:56 Pulse Ox 100 05/04/19 11:56 Vital Signs Reviewed: Yes Eye Exam: Normal Eyes: Positive: Conjunctiva Clear ENT Exam: Normal ENT: Positive: Normal ENT inspection, Hearing grossly normal. Negative: Trismus , Muffled voice, Hoarse voice Dental Exam: Normal Neck exam: Normal Neck: Positive: Supple, Nontender Respiratory Exam: Normal Respiratory: Positive: Chest non-tender, No respiratory distress, No accessory muscle use Cardiovascular Exam: Normal Cardiovascular: Positive: RRR, Pulses Normal, Brisk Capillary Refill Abdomen Description: Negative: CVA Tenderness (R), CVA Tenderness (L) Musculoskeletal Exam: Normal Musculoskeletal: Positive: Strength Intact, ROM Intact, No Edema Neurological Exam: Normal Neurological: Positive: Alert, Muscle Tone Normal Psychological Exam: Normal Skin Exam: Normal Diagnostics - Laboratory Lab Results: ua +1 leukesterace no symptoms will culture Back Pain Course/Dx - Course Course Of Treatment: tylenol, flexeril, warm compress low back exercise pcp referral provided - Differential Dx/Diagnosis Provider Diagnosis: Low back strain, Acute exacerbation of chronic low back pain Discharge ED - Sign-Out/Discharge Documenting (check all that apply): Patient Departure All imaging exams completed and their final reports reviewed: No Studies - Discharge Plan Condition: Stable Disposition: HOME Prescriptions: Cyclobenzaprine TAB* [Flexeril 10 MG TAB*] 10 mg PO TID PRN #15 tab PRN Reason: back pain Patient Education Materials: Low Back Strain (ED), Lower Back Exercises (ED) Forms: *Work Release Referrals: [facility] [Outside] - 3 Days - Billing Disposition and Condition Condition: STABLE Disposition: Home - Attestation Statements Provider Attestation: I was available for consult. This patient was seen by the MANDIE. The patient was not presented to, seen by, or examined by me. -Kellie
== END 2019-05-04 13:02 | disposition home or self-care (01) ==
LOC: UCEAST 11:39
DX: S39.012A Strain of muscle, fascia and tendon of lower back, initial encounter (principal); G89.29 Other chronic pain; M54.5 Low back pain; F17.210 Nicotine dependence, cigarettes, uncomplicated; Z88.5 Allergy status to narcotic agent; Z91.09 Other allergy status, other than to drugs and biological substances; Z91.040 Latex allergy status; X50.1XXA Overexertion from prolonged static or awkward postures, initial encounter; Y93.89 Activity, other specified; Y92.9 Unspecified place or not applicable
CPT/HCPCS: 81003; 87086; 99212; A9270-GY; G0463

== ENCOUNTER 2019-05-04 17:56 | Emergency (ER) | payer OTHER ==
[2019-05-04 18:07] VITALS: BP 115/79
--- NOTE | 2019-05-04 18:33 | UC ---
Back Pain HPI - HPI Summary HPI Summary: patient to urgent care this evening from work after feeling like her legs went numb and she began to fall to the ground but caught her self ---she walked in to urgent care but reported profound weakness in both of lower legs. no upper extremity weakness-- patient reports only taking her regular meds this morning and the flexeril we gave her at urgent care - History of Current Complaint Chief Complaint: UCLowerExtremity Stated Complaint: LEG NUMBNESS Time Seen by Provider: 05/04/19 18:03 Hx Obtained From: Patient Hx Last Menstrual Period: hyster ?: No Onset/Duration: Lasting Days - 1, Still Present, Worse Since - this afternoon Timing: Constant Pain Intensity: 0 Character: Unable to Describe Aggravating Factor(s): Movement, Lifting, Bending, Walking Alleviating Factor(s): Nothing Associated Signs And Symptoms: Positive: Weakness - Allergies/Home Medications Allergies/Adverse Reactions: Allergies Allergy/AdvReac Type Severity Reaction Status Date / Time Adhesive Tape AdvReac Intermediate Hives Verified 05/04/19 18:07 Latex, Natural Rubber AdvReac Intermediate Edema Verified 05/04/19 18:07 tramadol AdvReac Intermediate "get's Verified 05/04/19 18:07 violent" Home Medications: Home Medications Divalproex Sodium [Depakote] 1,000 mg PO QPM 05/04/19 [History Confirmed ] PMH/Surg Hx/FS Hx/Imm Hx Previously Healthy: No Neurological History: Seizures Psychological History: Depression - Surgical History Surgical History: Yes Surgery Procedure, Year, and Place: L ear prostethis(PLASTIC BONES); HYSTERECTOMY; neck surgery; gallbladder removed; stomach surgery 2003--"tumors and cysts"; appendectomy - Family History Known Family History: Positive: Cardiac Disease, Diabetes, Other - Bipolar disorder, aunt with stage 4 lung cancer Negative: Hypertension - Social History Occupation: Employed Part-time Lives: With Family Alcohol Use: None Substance Use Type: None Smoking Status (MU): Current Some Day Smoker Type: Cigarettes Amount Used/How Often: 1/2 ppd Length of Time of Smoking/Using Tobacco: 15 yrs Have You Smoked in the Last Year: Yes Household Exposure Type: Cigarettes Review of Systems All Other Systems Reviewed And Are Negative: Yes Constitutional: Positive: Negative Skin: Positive: Negative Eyes: Positive: Negative ENT: Positive: Negative Respiratory: Positive: Negative Cardiovascular: Positive: Negative Gastrointestinal: Positive: Negative Genitourinary: Positive: Negative Motor: Positive: Weakness - both legs Musculoskeletal: Positive: Arthralgia - low back Neurological: Positive: Negative Psychological: Positive: Negative Is Patient Immunocompromised?: No Physical Exam - Summary Physical Exam Summary: patient states I am suppose to have back surgery but I cannot find an MD to do it ---She also states she did not take any "additional" medications today Triage Information Reviewed: Yes Appearance: Well-Nourished, Ill-Appearing, Pain Distress - biopsycho social stress Vital Signs: Initial Vital Signs Temp 99.8 F 05/04/19 18:03 Pulse 134 05/04/19 18:03 Resp 16 05/04/19 18:03 BP 115/79 05/04/19 18:03 Pulse Ox 99 05/04/19 18:03 Vital Signs Reviewed: Yes Eye Exam: Normal Eyes: Positive: Conjunctiva Clear ENT Exam: Normal ENT: Positive: Normal ENT inspection, Other - usual voice s/p left neck surgery. Negative: Nasal congestion, Trismus, Muffled voice, Hoarse voice Dental Exam: Normal Neck exam: Normal Neck: Positive: Supple, Nontender Respiratory Exam: Normal Respiratory: Positive: Chest non-tender, No respiratory distress, No accessory muscle use Cardiovascular Exam: Other Cardiovascular: Positive: Pulses Normal, Brisk Capillary Refill, Tachycardia Musculoskeletal Exam: Normal Musculoskeletal: Positive: Strength Intact, ROM Intact, No Edema Neurological Exam: Normal Neurological: Positive: Alert, Muscle Tone Normal Psychological Exam: Normal Psychological: Negative: Age Appropriate Behavior Skin Exam: Normal Back Pain Course/Dx - Course Course Of Treatment: to ed via ems due to limited imagine at urgency care - Differential Dx/Diagnosis Provider Diagnosis: Weakness, Acute exacerbation of chronic low back pain - Physician Notifications Discussed Care With: Edelmira Elizondo Time Discussed With Above Provider: 18:20 Instructed by Provider To: Transfer Discharge ED - Sign-Out/Discharge Documenting (check all that apply): Patient Departure All imaging exams completed and their final reports reviewed: No Studies - Discharge Plan Condition: Fair Disposition: TRANS HIGHER LVL OF CARE FAC Referrals: No Primary Care Phys,NOPCP [Primary Care Provider] - - Billing Disposition and Condition Condition: FAIR Disposition: Trans Higher Lvl of Care Fac
== END 2019-05-04 18:32 | disposition short-term general hospital (02) ==
LOC: UCEAST 17:56
DX: M54.5 Low back pain (principal); G89.29 Other chronic pain; R53.1 Weakness; R56.9 Unspecified convulsions; F17.210 Nicotine dependence, cigarettes, uncomplicated; Z79.899 Other long term (current) drug therapy; Z91.09 Other allergy status, other than to drugs and biological substances; Z88.5 Allergy status to narcotic agent; Z91.040 Latex allergy status
CPT/HCPCS: 99213; G0463

== ENCOUNTER 2019-05-04 18:48 | Emergency (ER) | payer OTHER ==
[2019-05-04] MEDS ORDERED: Ketorolac INJ* 30 MG/ML 1 ML VIAL IM ONE (19:45)
[2019-05-04] MEDS ORDERED: Lidocaine PATCH 5%* 1 PATCH TRANSDERM ONE (19:46)
--- NOTE | 2019-05-04 20:03 | ED ---
Back Pain - HPI Summary HPI Summary: 38 year old female presents with acute on chronic back pain since yesterday. She states that she was lifting a dog food bag yesterday and felt a pull in her back. pain is in midline lower back. She does have some numbness and tingling to legs. States she went to work and ended up passing out from the pain. She was seen in urgent care twice a day. She ambulated into urgent care. She states she feels very groggy. States she took a Flexeril without relief. Per her chart she has history of bilateral numbness in her legs and back pain. Denies any urinary symptoms. no loss of bowel or bladder. No saddle anesthesias. No fevers. - History of Current Complaint Chief Complaint: EDBackInjuryPain Stated Complaint: BACK PAIN PER EMS Time Seen by Provider: 05/04/19 19:12 Hx Last Menstrual Period: hyster Pain Intensity: 10 - Allergies/Home Medications Allergies/Adverse Reactions: Allergies Allergy/AdvReac Type Severity Reaction Status Date / Time Adhesive Tape AdvReac Intermediate Hives Verified 05/04/19 18:57 Latex, Natural Rubber AdvReac Intermediate Edema Verified 05/04/19 18:57 tramadol AdvReac Intermediate "get's Verified 05/04/19 18:57 violent" PMH/Surg Hx/FS Hx/Imm Hx Endocrine/Hematology History: Reports: Other Endocrine/Hematological Disorders - was told that she has a high risk of clotting from a blood test, no dvt/pe Denies: Hx Diabetes Cardiovascular History: Reports: Hx Hypotension, Hx Hypertension Denies: Hx Pacemaker/ICD Respiratory History: Reports: Hx Asthma, Hx Chronic Obstructive Pulmonary Disease (COPD) History: Denies: Hx Renal Disease Musculoskeletal History: Reports: Hx Scoliosis, Other Musculoskeletal History - spina bifida Sensory History: Reports: Hx Contacts or Glasses Denies: Hx Hearing Aid Opthamlomology History: Reports: Hx Contacts or Glasses Neurological History: Reports: Hx Seizures Psychiatric History: Reports: Hx Bipolar Disorder Denies: Hx Panic Disorder - Cancer History Cancer Type, Location and Year: chronic back pain seizures Hx Chemotherapy: No Hx Radiation Therapy: No - Surgical History Surgery Procedure, Year, and Place: L ear prostethis(PLASTIC BONES); HYSTERECTOMY; neck surgery; gallbladder removed; stomach surgery 2003--"tumors and cysts"; appendectomy Infectious Disease History: No Infectious Disease History: Denies: Hx Clostridium Difficile, Hx Hepatitis, Hx Human Immunodeficiency Virus (HIV), Hx of Known/Suspected MRSA, Hx Shingles, Hx Tuberculosis, Hx Known/ Suspected VRE, Hx Known/Suspected VRSA, History Other Infectious Disease, Traveled Outside the [place] in Last 30 Days - Family History Known Family History: Positive: Cardiac Disease, Diabetes, Other - Bipolar disorder, aunt with stage 4 lung cancer Negative: Hypertension - Social History Alcohol Use: None Hx Substance Use: No Substance Use Type: Reports: None Hx Tobacco Use: Yes Smoking Status (MU): Current Some Day Smoker Type: Cigarettes Amount Used/How Often: 1/2 ppd Length of Time of Smoking/Using Tobacco: 15 yrs Have You Smoked in the Last Year: Yes Review of Systems Negative: Fever Negative: Chest Pain Negative: Shortness Of Breath Positive: Myalgia - back pain All Other Systems Reviewed And Are Negative: Yes Physical Exam Triage Information Reviewed: Yes Vital Signs On Initial Exam: Initial Vitals Temp Pulse Resp BP Pulse Ox 99.0 F 108 16 112/84 98 05/04/19 18:55 05/04/19 18:55 05/04/19 18:55 05/04/19 18:55 05/04/19 18:55 Vital Signs Reviewed: Yes Appearance: Positive: Well-Appearing Skin: Positive: Warm, Dry Head/Face: Positive: Normal Head/Face Inspection Eyes: Positive: Normal, Conjunctiva Clear ENT: Positive: Pharynx normal Respiratory/Lung Sounds: Positive: Clear to Auscultation, Breath Sounds Present Cardiovascular: Positive: Normal, RRR Musculoskeletal: Positive: Limited @ - back, Other - tenderness lower back, neg SLR, moving all extremities Neurological: Positive: Sensory/Motor Intact, Babinski Bilateral - normal, Other - sensation grossly intact Psychiatric: Positive: Normal Procedures - Sedation Patient Received Moderate/Deep Sedation with Procedure: No Diagnostics - Vital Signs Vital Signs Temp Pulse Resp BP Pulse Ox 05/04/19 18:55 99.0 F 108 16 112/84 98 - Laboratory Lab Statement: Any lab studies that have been ordered have been reviewed, and results considered in the medical decision making process. - CT back CT Interpretation Completed By: Radiologist Summary of CT Findings: IMPRESSION: No significant disc disease. No acute fractures. Early facet joint arthropathy in the mid and lower lumbar spine. Re-Evaluation - Re-Evaluation First Eval Re-Evaluation Time: 20:59 Change: Improved Comment: patient currently a sleep Back Pain Course/Dx - Course Course Of Treatment: 38 year old female presents with acute on chronic back pain since yesterday. She states that she was lifting a dog food bag yesterday and felt a pull in her back. pain is in midline lower back. She does have some numbness and tingling to legs. States she went to work and ended up passing out from the pain. She was seen in urgent care twice a day. She ambulated into urgent care. She states she feels very groggy. States she took a Flexeril without relief. Per her chart she has history of bilateral numbness in her legs and back pain. Denies any urinary symptoms. no loss of bowel or bladder. No saddle anesthesias. No fevers. On exam tenderness lower back. Sensation is grossly intact. full of motion of lower extremity. Normal Babinskis. CT shows no fracture. will place on steriod. told to establish care with primary. patient understand and agrees with plan. - Diagnoses Differential Diagnosis/HQI/PQRI: Positive: Herniated Disc, Strain, Sprain Provider Diagnoses: Back pain Discharge ED - Sign-Out/Discharge Documenting (check all that apply): Patient Departure - Discharge Plan Condition: Good Disposition: HOME Prescriptions: methylPREDNISolone [Medrol Dosepak 4 MG*] 4 mg PO .SEE KELLEE INSTRUCTION #1 packet Patient Education Materials: Back Pain (ED) Referrals: [facility] [facility] [Outside] Additional Instructions: follow up with primary within 5 days follow steroid package Continue flexeril Take Tylenol or ibuprofen ice/heat on area Return to ED if develop any new or worsening symptoms - Billing Disposition and Condition Condition: GOOD Disposition: Home
[2019-05-04] MEDS ORDERED: Lidocaine Patch REMOVE* 1 NOTE MISC SCH (21:00)
[2019-05-04 21:27] VITALS: BP 90/53
== END 2019-05-04 21:25 | disposition home or self-care (01) ==
LOC: ED 18:48
DX: M54.9 Dorsalgia, unspecified (principal); I10 Essential (primary) hypertension; J44.9 Chronic obstructive pulmonary disease, unspecified; F31.9 Bipolar disorder, unspecified; F17.210 Nicotine dependence, cigarettes, uncomplicated; Z90.710 Acquired absence of both cervix and uterus; Z90.49 Acquired absence of other specified parts of digestive tract; Z90.89 Acquired absence of other organs; Z88.5 Allergy status to narcotic agent; Z91.040 Latex allergy status
CPT/HCPCS: 72131; 96372; 99282; A9270-GY; J1885

== ENCOUNTER 2019-05-08 20:22 | Emergency (ER) | payer OTHER ==
--- OUTSIDE RECORDS SUMMARY | 2019-05-08 20:42 | XMS REPORT | Summary of Care ---
:1980 Author Organization [facility] Address [address] [facility] [place] [address] Care Team Providers Name Role Phone Emile Pacheco Primary Care Provider Reason for Visit Reason Comments Chest Wall Pain Sore Throat Cough Encounter Details Date Type Department Care Team Description 05/05/2019 Emergency [facility] Emergency Department Wojciech Ríos DO Emergency [address] [place] [address] [place] [address] [phone] Allergies Active Allergy Reactions Severity Noted Date Comments Tape: Silk Or Adhesive Respiratory Reaction 12/20/2016 Bee Anaphylaxis 01/26/2017 Latex Respiratory Reaction 12/20/2016 Mushrooms Hives 11/28/2018 Tramadol Other 12/20/2016 Mood change documented as of this encounter (statuses as of 05/06/2019) Medications Medication Sig Dispensed Refills Start Date [...] for Congestion for up to 10 doses. azithromycin Take 1 Tab by 6 Tab 0 05/05/2019 Active (ZITHROMAX) 250 MG Oral mouth DAILY. Take Tab 2 pills on the first day and 1 pill each day for 4 days predniSONE (DELTASONE) Take 3 Tabs by 15 Tab 0 05/05/2019 Active 20 MG Oral Tab mouth DAILY. documented as of this encounter (statuses as of 05/06/2019) Active Problems Problem Noted Date PTSD (post-traumatic stress disorder) 04/22/2019 Bipolar 2 disorder 04/22/2019 Spell of altered cognition 02/06/2019 Lung nodule [...] as of this encounter (statuses as of 05/06/2019) Resolved Problems Problem Noted Date Resolved Date Fall 01/26/2017 08/07/2017 Syncope 01/26/2017 02/12/2018 documented as of this encounter (statuses as of 05/06/2019) Social History Tobacco Use Types Packs/Day Years [...] Sign Reading Time Taken Comments Blood Pressure 114/79 05/05/2019 8:41 PM EST Pulse 102 05/05/2019 8:41 PM EST Temperature 36.8 05/05/2019 8:41 PM EST C (98.2 F) Respiratory Rate 18 05/05/2019 8:41 PM EST Oxygen Saturation 96% 05/05/2019 5:21 PM EST Inhaled Oxygen Concentration - - Weight - - Height - - Body Mass Index - - documented in this encounter Discharge Instructions Wojciech Louise DO - 05/05/2019Zithromax 500 mg on day 1, then 250 mg days 2 through 5 Prednisone 60 mg daily for 5 days Drink plenty of fluids Follow-up with family doctor Return to work on May 07, 2019 AttachmentsThe following attachments cannot be sent through Care Everywhere.Sore Throat Discharge Instructions, Adult (Guyanese)Acute Bronchitis ( Guyanese)documented in this encounter Plan of Treatment Date Type Specialty Care Team Description 05/24/2019 Office Visit Family Practice Emile Pacheco MD [address] [place] [address] 08/07/2019 Office Visit Neurology Archie Marx CRNP [address] [place] [address] [phone] Health Maintenance Due Date Last Done Comments [...] control of your depression. Work with your Congressional Aide General No Adali Bonilla RN Note: This is an individualized treatment (frequent ED use) goal for Kalyani Dowling: Please work with your Congressional Aide, who will assist you in meeting your [...] Procedure Name Priority Date/Time Associated Comments Diagnosis CBC WITH DIFFERENTIAL STAT 05/05/2019 6:29 Results for this PM EST procedure are in the results section. FLU A/FLU B/RSV PCR Routine 05/05/2019 6:29 Results for this ASSAY (TESTED AT [place] PM EST procedure are in LAB ONLY) the results section. COMPREHENSIVE STAT 05/05/2019 6:29 Results for this METABOLIC PANEL PM EST procedure are in the results section. XR CHEST 2 VIEW PA AND STAT 05/05/2019 6:23 Results for this LATERAL (STANDARD) PM EST procedure are in the results section. STREP A PCR ASSAY STAT 05/05/2019 6:14 Results for this (TESTED AT [facility] PM EST procedure are in ONLY) the results section. documented in this encounter Results FLU A/FLU B/RSV PCR ASSAY (TESTED AT [place] [facility] ONLY) (05/05/2019 6:29 PM EST) Influenza A PCR Assay Negative Negative [facility] Influenza B PCR Assay Negative Negative [facility] RSV PCR Assay Negative Negative [facility] Specimen Nose - Nasopharyngeal swab (specimen) Performing Organization Address City/State/Zipcode Phone Number [facility] [address] [facility] [place] [address] COMPREHENSIVE METABOLIC PANEL (05/05/2019 6:29 PM EST) Sodium 137 134 - 145 mmol/L [facility] Potassium 3.6 3.5 - 5.1 mmol/L [facility] Chloride 103 98 - 107 mmol/L [facility] CO2 26 22 - 30 mmol/L [facility] Calcium 8.8 8.3 - 10.1 mg/dl [facility] Albumin 3.8 3.5 - 5.0 g/dl [facility] BUN 19 (H) 7 - 17 mg/dl [facility] Creatinine 0.8 0.7 - 1.2 mg/dl [facility] Glucose 114 (H) 70 - 99 mg/dl [facility] Total Protein 7.3 6.3 - 8.2 g/dl [facility] Total Bilirubin 0.3 0.0 - 1.1 MG/DL [facility] AST 25 15 - 46 U/L [facility] ALT 18 9 - 52 U/L [facility] Alkaline 82 40 - 150 U/L [facility] eGFR >60 See Interpretation [facility] Comment: Below ml/min/1.73ml GROUP Estimated GFR [...] Study Equation which can be found at: https://www.kidney.org/content/bfvs-omuhw-xftqxmsd BUN/Creatinine 24 (H) 6 - 22 RATIO [facility] Anion Gap 8 3 - 11 mmol/L [facility] A/G Ratio 1.1 0.8 - 2.0 ratio [facility] Specimen Blood - Blood specimen (specimen) Performing Organization Address City/State/Zipcode Phone Number [facility] [address] [facility] [place] [address] [phone] CBC WITH DIFFERENTIAL (05/05/2019 6:29 PM EST) WBC Count 4.76 3.98 - 10.04 K/uL [facility] RBC Count 4.25 3.93 - 5.22 M/UL [facility] Hemoglobin 12.9 11.2 - 15.7 g/dL [facility] Hematocrit 37.9 34.1 - 44.9 % [facility] MCV 89.2 79.4 - 94.8 FL [facility] MCH 30.4 25.6 - 32.2 PG [facility] MCHC 34.0 32.2 - 35.5 g/dL [facility] Platelet Count 177 (L) 182 - 369 K/uL [facility] MPV 10.1 9.4 - 12.3 FL [facility] RDW 13.2 11.7 - 14.4 % [facility] Neutrophil % 66.2 34.0 - 71.1 % [facility] Lymphocyte % 20.0 19.3 - 51.7 % [facility] Monocyte % 12.4 4.7 - 12.5 % [facility] Eosinophil % 0.6 (L) 0.7 - 5.8 % [facility] Basophil % 0.4 0.1 - 1.2 % [facility] nRBC % 0.0 0.0 - 0.2 % [facility] Neutrophil # 3.15 1.56 - 6.13 K/UL [facility] Lymphocyte # 0.95 (L) 1.18 - 3.74 K/UL [facility] Monocyte # 0.59 0.24 - 0.86 K/UL [facility] Eosinophil # 0.03 (L) 0.04 - 0.36 K/UL [facility] Basophil # 0.02 0.01 - 0.08 K/UL [facility] Immature Gran % 0.4 0.0 - 0.4 % [facility] Immature Gran # 0.02 0.00 - 0.03 K/uL [facility] NRBC # 0.00 0.00 - 0.12 K/uL [facility] Specimen Blood - Blood specimen (specimen) Performing Organization Address City/State/Zipcode Phone Number [facility] [address] [place] [address] [phone] XR CHEST 2 VIEW PA AND LATERAL (STANDARD) (05/05/2019 6:23 PM EST) Specimen Impressions Performed At No acute findings. THIS DOCUMENT HAS BEEN ELECTRONICALLY SIGNED BY CARLENE AMADOR MD Narrative Performed At PROCEDURE INFORMATION: Exam: XR Chest, 2 Views Exam date and time: 05/05/2019 6:17 PM Age: 38 years old Clinical history: Indication for study->cough, chest pain, SOB TECHNIQUE: Imaging protocol: XR of the chest Views: 2 views. COMPARISON: CR XR CHEST 2 VIEW PA AND LATERAL (STANDARD) 04/18/2019 4:49 PM FINDINGS: Lungs: Unremarkable. No consolidation. Pleural space: Unremarkable. No pleural effusion. No pneumothorax. Heart/Mediastinum: Unremarkable. No cardiomegaly. Bones/joints: Unremarkable. Procedure Note Interface, Rad Results - 05/05/2019 6:43 PM EST PROCEDURE INFORMATION: Exam: XR Chest, 2 Views Exam date and time: 05/05/2019 6:17 PM Age: 38 years old Clinical history: Indication for study->cough, chest pain, SOB TECHNIQUE: Imaging protocol: XR of the chest Views: 2 views. COMPARISON: CR XR CHEST 2 VIEW PA AND LATERAL (STANDARD) 04/18/2019 4:49 PM FINDINGS: Lungs: Unremarkable. No consolidation. Pleural space: Unremarkable. No pleural effusion. No pneumothorax. Heart/Mediastinum: Unremarkable. No cardiomegaly. Bones/joints: Unremarkable. IMPRESSION No acute findings. THIS DOCUMENT HAS BEEN ELECTRONICALLY SIGNED BY CARLENE AMADOR MD STREP A PCR ASSAY (TESTED AT [facility] ONLY) (05/05/2019 6:14 PM EST) Throat Strep A Strep A not Strep A not [facility] PCR detected detected [facility] Specimen Throat - Throat swab (specimen) Performing Organization Address City/State/Zipcode Phone Number [facility] [address] [facility] [address] documented in this encounter Visit Diagnoses Diagnosis Pharyngitis due to other organism - Primary Bronchitis Bronchitis, not specified as acute or chronic Tracheitis Acute tracheitis without mention of obstruction documented in this encounter Administered Medications Medication Order MAR Action Action Date Dose Rate Site albuterol-ipratropium (DUO-NEB) Given 05/05/2019 6:48 PM EST 3 mg nebulizer unit dose (RT ADMIN) 0.5-2.5 (3) MG/3ML 3 mg, Inhalation-SVN, NOW, 1 dose, 05/05/19 at 1805, Ordering this RT Admin Medication will automatically order the patient to be placed on the Respiratory Therapy Patient Driven Protocol RT may increase the frequency of administration to q2h, as needed, if symtoms are not controlled at current ordered frequency. If administer three times consecutively without improvement, call provider., azithromycin (ZITHROMAX) tablet 500 mg Given 05/05/2019 8:37 PM EST 500 mg 500 mg, Oral, NOW, 1 dose, 05/05/19 at 2030 dexamethasone (DECADRON) injection 10 mg Given 05/05/2019 6:44 PM EST 10 mg 10 mg, Intravenous Push, NOW, 1 dose, 05/05/19 at 1805 normal saline bolus 1,000 mL New Bag 05/05/2019 6:31 PM EST 1,000 mL 1,000 mL, Intravenous, BOLUS, 1 dose, 05/05/19 at 1900 documented in this encounter Guarantor Name Account Type Relation to Date of Phone Billing Address Patient Kalyani Dowling Personal/Family 1980 [address] [facility] [facility] (Home) [place] [phone] [place], [place] (Work) [address] documented as of this encounter Advance Directives Code Status Date Activated Date Inactivated Comments Full Code 11/24/2018 1:15 AM 11/28/2018 7:07 AM Does the patient have decision making capacity? Yes Order was discussed with: Patient I discussed all options and patient/surrogate requested and agreed to: Full Code
[2019-05-09] MEDS ORDERED: predniSONE TAB* 20 MG PO ONE (02:37)
--- NOTE | 2019-05-09 02:46 | ED ---
Respiratory - HPI Summary HPI Summary: Pt is a 38 y/o F presenting to the ED with a chief upper respiratory complaint. She states shes been fighting an upper respiratory infection for about 3 weeks , characterized by shortness of breath, wheezing, mid-sternal chest pain, and inflamed lungs. - History of Current Complaint Chief Complaint: EDGeneral Stated Complaint: BACK PAIN/LARYNGITIS PER PT Hx Obtained From: Patient Onset/Duration: Gradual Onset, Lasting Weeks, Still Present Timing: Constant Initial Severity: Moderate Current Severity: Moderate Pain Intensity: 5 Character: Wheezing, Dyspnea at Rest Sputum Amount: None Aggravating Factor(s): Nothing Alleviating Factor(s): Nothing Associated Signs and Symptoms: SOB, Chest Pain, Wheezing - Allergy/Home Medications Allergies/Adverse Reactions: Allergies Allergy/AdvReac Type Severity Reaction Status Date / Time Adhesive Tape AdvReac Intermediate Hives Verified 05/08/19 20:30 Latex, Natural Rubber AdvReac Intermediate Edema Verified 05/08/19 20:30 tramadol AdvReac Intermediate "get's Verified 05/08/19 20:30 violent" PMH/Surg Hx/FS Hx/Imm Hx Previously Healthy: Yes Endocrine/Hematology History: Reports: Other Endocrine/Hematological Disorders - was told that she has a high risk of clotting from a blood test, no dvt/pe Denies: Hx Diabetes Cardiovascular History: Reports: Hx Hypotension, Hx Hypertension Denies: Hx Pacemaker/ICD Respiratory History: Reports: Hx Asthma, Hx Chronic Obstructive Pulmonary Disease (COPD), Other Respiratory Problems/Disorders - "inflamed lungs" History: Denies: Hx Renal Disease Musculoskeletal History: Reports: Hx Scoliosis, Other Musculoskeletal History - spina bifida Sensory History: Reports: Hx Contacts or Glasses Denies: Hx Hearing Aid Opthamlomology History: Reports: Hx Contacts or Glasses Neurological History: Reports: Hx Seizures Psychiatric History: Reports: Hx Bipolar Disorder Denies: Hx Panic Disorder - Cancer History Cancer Type, Location and Year: chronic back pain seizures Hx Chemotherapy: No Hx Radiation Therapy: No - Surgical History Surgery Procedure, Year, and Place: L ear prostethis(PLASTIC BONES); HYSTERECTOMY; neck surgery; gallbladder removed; stomach surgery 2003--"tumors and cysts"; appendectomy Infectious Disease History: No Infectious Disease History: Denies: Hx Clostridium Difficile, Hx Hepatitis, Hx Human Immunodeficiency Virus (HIV), Hx of Known/Suspected MRSA, Hx Shingles, Hx Tuberculosis, Hx Known/ Suspected VRE, Hx Known/Suspected VRSA, History Other Infectious Disease, Traveled Outside the [place] in Last 30 Days - Family History Known Family History: Positive: Cardiac Disease, Diabetes, Other - Bipolar disorder, aunt with stage 4 lung cancer Negative: Hypertension - Social History Alcohol Use: None Hx Substance Use: No Substance Use Type: Reports: None Hx Tobacco Use: Yes Smoking Status (MU): Current Some Day Smoker Type: Cigarettes Amount Used/How Often: 1/2 ppd Length of Time of Smoking/Using Tobacco: 15 yrs Have You Smoked in the Last Year: Yes Review of Systems - ROS Summary Review of Systems Summary: Home Medications Medication Instructions Recorded Confirmed Type Divalproex Sodium [Depakote] 500 mg PO QAM 04/16/16 05/09/19 History levETIRAcetam [Keppra 500] 750 mg PO BID 04/16/16 05/09/19 History ARIPiprazole TAB* [Abilify 2 MG 1 tab PO DAILY 12/31/18 05/09/19 History TAB*] Albuterol HFA INHALER* [Ventolin 1 dose INH TID PRN 12/31/18 05/09/19 History HFA Inhaler*] Fluoxetine HCl [Prozac] 1 tab PO DAILY 12/31/18 05/09/19 History Pseudoephedrine TAB* [Sudafed TAB*] 60 mg PO TID #30 tab 12/31/18 05/09/19 Rx Cyclobenzaprine TAB* [Flexeril 10 10 mg PO TID PRN #15 tab 05/04/19 05/09/19 Rx MG TAB*] Divalproex Sodium [Depakote] 1,000 mg PO QPM 05/04/19 05/09/19 History methylPREDNISolone [Medrol Dosepak 4 mg PO .SEE KELLEE INSTRUCTION #1 05/04/1905/16 Rx 4 MG*] packet predniSONE [Prednisone 20 MG TAB] 60 mg PO DAILY #15 tablet 05/09/19 Rx Positive: Chest Pain Positive: Shortness Of Breath, Other - wheezing All Other Systems Reviewed And Are Negative: Yes Physical Exam - Summary Physical Exam Summary: General: Well-developed, Well-nourished female. No acute distress. HEENT: Normocephalic, Atraumatic. Eyes: Conjuctiva normal, PERRL. Oropharynx: Clear, mucous membranes moist, (-) exudates. Neck: Soft, FROM, (-) lymphadenopathy, (-) thyromegaly, (-) JVD. Cardiovascular: Normal sinus rhythm, (-) murmur. Lungs: Transmitted upper airway noises. No crackles, wheezes, or infiltrates. Clear to auscultation bilaterally Abdomen: Soft, non-tender, non-distended, (-) organomegaly, normal bowel sounds. Back: (-) CVA tenderness Extremities: No edema. Skin: Warm, dry, (-) rash. Neuro: Alert and oriented x3, no focal deficits. Slow to respond. Psychiatric: Mood normal, affect normal. Triage Information Reviewed: Yes Vital Signs On Initial Exam: Initial Vitals Temp Pulse Resp BP Pulse Ox 98.3 F 66 16 124/70 97 05/08/19 20:25 05/08/19 20:25 05/08/19 20:25 05/08/19 20:25 05/08/19 20:25 Vital Signs Reviewed: Yes Procedures - Sedation Patient Received Moderate/Deep Sedation with Procedure: No Diagnostics - Vital Signs Vital Signs Temp Pulse Resp BP Pulse Ox 05/09/19 02:15 97.6 F 53 15 116/81 98 05/09/19 01:35 97.2 F 51 18 112/70 99 05/08/19 22:58 97.2 F 52 16 101/65 99 05/08/19 20:25 98.3 F 66 16 124/70 97 - Laboratory Lab Statement: Any lab studies that have been ordered have been reviewed, and results considered in the medical decision making process. Disposition - Course Course Of Treatment: 38-year-old female presents with laryngitis for 2 weeks. Patient recently seen here for back pain. She states she has been put on antibiotics over the last couple weeks. They're all finishes she is still not better. She denies any current fevers. No vomiting or diarrhea. No significant chest pain or shortness of breath. She has mild nonproductive cough. She does smoke cigarettes. Workup essentially negative. Physical exam unremarkable. Patient given prednisone for laryngitis. - Diagnoses Provider Diagnoses: Laryngitis Discharge ED - Sign-Out/Discharge Documenting (check all that apply): Patient Departure - Discharge Plan Condition: Stable Disposition: HOME Prescriptions: predniSONE [Prednisone 20 MG TAB] 60 mg PO DAILY #15 tablet Patient Education Materials: Laryngitis (ED) Referrals: Emile Pacheco MD [Primary Care Provider] - Additional Instructions: Please follow up with your primary care physician within three days. Please return to ED for any new or worsening symptoms. - Billing Disposition and Condition Condition: STABLE Disposition: Home - Attestation Statements Document Initiated by Scribe: Yes Documenting Scribe: Linda Cardenas Provider For Whom Rojelio is Documenting (Include Credential): Mimi Mckeon MD. Scribe Attestation: Linda Ch, scribed for Mimi Mckeon MD. on 05/09/19 at 0521. Scribe Documentation Reviewed: Yes Provider Attestation: The documentation as recorded by the Linda medina accurately reflects the service I personally performed and the decisions made by me, Mimi Mckeon MD. Status of Scribe Document: Viewed
[2019-05-09 03:07] VITALS: BP 109/73
== END 2019-05-09 03:10 | disposition home or self-care (01) ==
LOC: ED 20:22
DX: J04.0 Acute laryngitis (principal); R06.02 Shortness of breath; R07.9 Chest pain, unspecified; Z72.0 Tobacco use
CPT/HCPCS: 93005; 99283; J7512

== ENCOUNTER 2019-05-10 17:17 | Emergency (ER) | payer OTHER ==
--- OUTSIDE RECORDS SUMMARY | 2019-05-10 17:24 | XMS REPORT ---
:1980 Author Organization [facility] Care Team Providers Name Role Phone Stefany Alvarado Primary Care Physician Unavailable Allergies, Adverse Reactions, Alerts Allergy Code CodeSystem Reaction Severity Criticality Status Start Substance Date Moderate Medications Medication Medication Medication Start Stop Route Dose Status Fill Code CodeSystem Date Date Instructions RxNorm Relevant diagnostic tests/laboratory data Narrative No Information Procedures Procedure Code CodeSystem Target Date of Status Service Device Device Device Name Site Procedure Delivery Code Name UID Location SNOMED-CT () 2019-02-[address], [id number] SNOMED-CT () 2019-04-[address], [id number] SNOMED-CT () 2019-01-[address], [id number] Encounters/Encounter Diagnoses Encounter Name Encounter Diagnosis Diagnosis Diagnosis Date of Service Code Code Name CodeSystem Diagnosis Delivery Location Psychotherapy 21107 SNOMED-CT 2019-04-15 [facility] [address] [place] [address], [id number] Vital Signs No Information Social History Element Description Description Start End Code CodeSystem AdditionalInfo Date Date SexAssignedAtBirth Female 1980-0 F AdministrativeGender 18 Hospital Discharge Instructions Reason For Referral Medical Equipment FDA Assessments
[2019-05-10 17:49] VITALS: BP 120/75
--- NOTE | 2019-05-10 18:39 | UC ---
Back Pain HPI - HPI Summary HPI Summary: PATIENT ARRIVES WITH COMPLAINTS OF WORSENING OF HER CHRONIC BACK PAIN. STATES SHE TURNED THE WRONG WAY TO WORK TODAY AND HER BACK "LOCKED UP." SHE DENIES ANY NUMBNESS/TINGLING. NO SADDLE ANESTHESIA OR LOSS OF BOWEL/BLADDER CONTROL. ON 05/04/19 SHE WAS SEEN 2 TIMES IN THE URGENT CARE AND THEN SENT TO THE ER FOR HER BACK PAIN. SHE WAS SEEN IN THE ER YESTERDAY FOR LARYNGITIS AND PLACED ON PREDNISONE. SHE ALREADY HAS FLEXERIL AT HOME. PT AMBULATED INTO THE UC WITHOUT DIFFICULTY. - History of Current Complaint Chief Complaint: UCBackPain Stated Complaint: BACK PAIN Time Seen by Provider: 05/10/19 18:29 Hx Obtained From: Patient Hx Last Menstrual Period: hyster Onset/Duration: Sudden Onset, Lasting Days, Still Present Timing: Constant Severity Initially: Moderate Severity Currently: Moderate Pain Intensity: 6 Pain Scale Used: 0-10 Numeric Back Pain: Is Diffuse Character: Sharp Aggravating Factor(s): Movement Alleviating Factor(s): Rest Associated Signs And Symptoms: Positive: Negative - Allergies/Home Medications Allergies/Adverse Reactions: Allergies Allergy/AdvReac Type Severity Reaction Status Date / Time Adhesive Tape AdvReac Intermediate Hives Verified 05/10/19 17:49 Latex, Natural Rubber AdvReac Intermediate Edema Verified 05/10/19 17:49 tramadol AdvReac Intermediate "get's Verified 05/10/19 17:49 violent" PMH/Surg Hx/FS Hx/Imm Hx - Additional Past Medical History Additional PMH: CHRONIC BACK PAIN Respiratory History: Asthma - Surgical History Surgical History: Yes Surgery Procedure, Year, and Place: L ear prostethis(PLASTIC BONES); HYSTERECTOMY; neck surgery; gallbladder removed; stomach surgery 2003--"tumors and cysts"; appendectomy - Family History Known Family History: Positive: Cardiac Disease, Diabetes, Other - Bipolar disorder, aunt with stage 4 lung cancer Negative: Hypertension - Social History Alcohol Use: None Substance Use Type: None Smoking Status (MU): Current Some Day Smoker Type: Cigarettes Amount Used/How Often: 1/2 ppd Length of Time of Smoking/Using Tobacco: 15 yrs Have You Smoked in the Last Year: Yes Household Exposure Type: Cigarettes Review of Systems All Other Systems Reviewed And Are Negative: Yes Constitutional: Positive: Negative Skin: Positive: Negative Respiratory: Positive: Negative Cardiovascular: Positive: Negative Gastrointestinal: Positive: Negative Musculoskeletal: Positive: Myalgia Physical Exam Triage Information Reviewed: Yes Appearance: Well-Appearing, No Pain Distress, Well-Nourished Vital Signs: Initial Vital Signs Temp 97.8 F 05/10/19 17:46 Pulse 98 05/10/19 17:46 Resp 18 05/10/19 17:46 BP 120/75 05/10/19 17:46 Pulse Ox 99 05/10/19 17:46 Vital Signs Reviewed: Yes Eyes: Positive: Conjunctiva Clear ENT: Positive: Hearing grossly normal Neck: Positive: Supple Respiratory: Positive: No respiratory distress, No accessory muscle use Cardiovascular: Positive: Pulses Normal Abdomen Description: Positive: Soft Musculoskeletal: Positive: No Edema, ROM Limited @ - BACK, Other: - TENDERNESS OVER T-SPINE ON EXAM THAT DISAPPEARS WITH DISTRACTION Neurological: Positive: Alert Psychological: Positive: Age Appropriate Behavior Skin: Negative: Rashes Back Pain Course/Dx - Course Course Of Treatment: NO NEW INJURY THAT WARRANTS IMAGING TODAY. PATIENT REQUESTING LIDOCAINE PATCH. SHE ALREADY HAS MUSCLE RELAXERS AND PREDNISONE AT HOME WHICH SHE WILL CONTINUE TO USE PRESCRIBED. PHYSICAL THERAPY REFERRAL ALSO PROVIDED. ENCOURAGED PATIENT TO FOLLOW-UP WITH HER PCP WITH CONCERNS ABOUT HER CHRONIC BACK PAIN. TO THE ER WITHOUT FAIL IF SYMPTOMS WORSEN. - Differential Dx/Diagnosis Provider Diagnosis: Acute exacerbation of chronic low back pain Discharge ED - Sign-Out/Discharge Documenting (check all that apply): Patient Departure All imaging exams completed and their final reports reviewed: No Studies - Discharge Plan Condition: Stable Disposition: HOME Prescriptions: Lidocaine PATCH 5%* [Lidoderm 5% Patch*] 1 patch TRANSDERM DAILY #1 packet Patient Education Materials: Chronic Back Pain (DC) Referrals: Emile Pacheco MD [Primary Care Provider] - 1 Week Additional Instructions: BE SURE TO GO THROUGH SLOW RANGE OF MOTION AND STRETCHING EXERCISES DAILY YOU ARE ABLE TO PREVENT STIFFENING UP AND MAKING THE DISCOMFORT WORSE. CONTINUE YOUR STEROID PRESCRIBED. LIDOCAINE PATCH NEEDED. PHYSICAL THERAPY REFERRAL PROVIDED. GO TO THE ED WITHOUT FAIL IF YOU DEVELOP WORSENING NUMBNESS/TINGLING IN YOUR LEGS, NUMBNESS IN THE GENITAL REGION, LOSS OF BOWEL/BLADDER CONTROL, INTOLERABLE PAIN OR ANY OTHER CONCERNING SYMPTOMS. FOLLOW-UP WITH YOUR PCP FOR FURTHER EVAL AND MANAGEMENT OF YOUR CHRONIC BACK PAIN. - Billing Disposition and Condition Condition: STABLE Disposition: Home
== END 2019-05-10 18:59 | disposition home or self-care (01) ==
LOC: UCEAST 17:17
DX: M54.5 Low back pain (principal); G89.29 Other chronic pain; J45.909 Unspecified asthma, uncomplicated; F17.210 Nicotine dependence, cigarettes, uncomplicated; Z91.09 Other allergy status, other than to drugs and biological substances; Z88.5 Allergy status to narcotic agent
CPT/HCPCS: 99212; G0463

== ENCOUNTER 2019-08-05 17:08 | Emergency (ER) | payer OTHER ==
--- OUTSIDE RECORDS SUMMARY | 2019-08-05 17:15 | XMS REPORT | Summary of Care ---
:1980 Author Organization [facility] Address [address] [place] [address] Care Team Providers Name Role Phone Emile Pacheco Primary Care Provider Madhu Coe-Attributed Pcp Reason for Visit Reason Comments Fall Encounter Details Date Type Department Care Team Description 07/30/2019 Emergency [facility] Emergency Department Carleen Cabrera DO Emergency [address] [facility] [place] [address] [place] [address] [phone] Allergies Active Allergy Reactions Severity Noted Date Comments Tape: Silk Or Adhesive Respiratory Reaction 12/20/2016 Bee Anaphylaxis 01/26/2017 Latex Respiratory Reaction 12/20/2016 Mushrooms Hives 11/28/2018 Tramadol Other 12/20/2016 Mood change documented as of this encounter (statuses as of 07/31/2019) Medications Medication Sig Dispensed Refills Start Date [...] % Transdermal Gel route FOUR TIMES DAILY. EPINEPHrine (EPIPEN 0.3 mg by 2 Each [...] for Congestion for up to 10 doses. predniSONE (DELTASONE) Take 3 Tabs by 15 Tab 0 05/05/2019 Active 20 MG Oral Tab mouth DAILY. Omeprazole (PRILOSEC) Take 1 Cap by 30 Cap 0 07/08/2019 Active 40 MG Oral CAPSULE mouth DAILY. 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 Anxiety and depression 06/20/2019 History of asthma 06/20/2019 Irritable bowel syndrome 06/20/2019 PTSD (post-traumatic stress disorder) 04/22/2019 Bipolar 2 [...] as of this encounter (statuses as of 07/31/2019) Resolved Problems Problem Noted Date Resolved Date Fall 01/26/2017 08/07/2017 Syncope 01/26/2017 02/12/2018 documented as of this encounter (statuses as of 07/31/2019) Social History Tobacco Use Types Packs/Day Years [...] Assigned at Date Recorded Not on file documented as of this encounter Last Filed Vital Signs Vital Sign Reading Time Taken Comments Blood Pressure 131/68 07/30/2019 4:30 PM EST Pulse 82 07/30/2019 4:30 PM EST Temperature 36.8 07/30/2019 4:30 PM EST C (98.2 F) Respiratory Rate 20 07/30/2019 4:30 PM EST Oxygen Saturation 96% 07/30/2019 4:30 PM EST Inhaled Oxygen Concentration - - Weight - - Height - - Body Mass Index - - documented in this encounter Discharge Instructions Carleen Austin DO - 07/30/2019Please follow up with your primary care physician as recommended. Please return to ER for any new concerning symptoms. AttachmentsThe following attachments cannot be sent through Care Everywhere.Blunt Abdominal Trauma Discharge Instructions (Latvian)Taking Care of Bruises (Latvian)documented in this encounter Plan of Treatment Date Type Specialty Care Team Description 08/15/2019 Office Visit Gastroenterology Kathleen Moore NP [address] [place] [address] 08/23/2019 Office Visit Family Practice Emile Pacheco MD [address] [place] [address] 08/28/2019 Office Visit Neurology Archie Marx CRNP [address] [place] [address] [phone] Health Maintenance Due Date Last Done Comments PNEUMOCOCCAL 0-64 YRS (1 of 3 - 08/13/1987 PCV13) DTaP/Tdap/Td Vaccines (1 - Tdap) 1992 HIV SCREENING 1996 INFLUENZA VACCINE (#1) 2019 DEPRESSION SCREENING 05/11/2019 05/11/2018 PAP SMEAR 05/11/2022 Postponed from 2002 (Patient has other medical reasons) HEPATITIS A IMMUNIZATION SERIES Aged Out No longer eligible based on patient's age to complete this topic HPV IMMUNIZATION SERIES Aged Out No longer [...] control of your depression. Work with your Insurance Plan Specialist General No Adali Bonilla RN Note: This is an individualized treatment (frequent ED use) goal for Kalyani Dowling: Please work with your Insurance Plan Specialist, who will assist you in meeting your [...] all prescribed medications as directed Self-management No Chad, Adali, RN Note: This is an individualized self-management [...] ongoing basis. documented as of this encounter Results Not on filedocumented in this encounter Visit Diagnoses Diagnosis Contusion of abdominal wall, initial encounter documented in this encounter Guarantor Name Account Type Relation to Date of Phone Billing Address Patient Kalyani Dowling Personal/Family 1980 [address] [phone] [place], [place] ([place]) [id number] documented as of this encounter Advance Directives Code Status Date Activated Date Inactivated Comments Full Code 11/24/2018 1:15 AM 11/28/2018 7:07 AM Does the patient have decision making capacity? Yes Order was discussed with: Patient I discussed all options and patient/surrogate requested and agreed to: Full Code
--- OUTSIDE RECORDS SUMMARY | 2019-08-05 17:15 | XMS REPORT | Summary of Care ---
:1980 Author Organization [facility] Address [address] [facility] [place] [address] Care Team Providers Name Role Phone Emile Pacheco Primary Care Provider Reason for Visit Reason Comments Heartburn Hip Pain left Shortness of Breath Encounter Details Date Type Department Care Team Description 07/08/2019 Emergency [facility] Emergency Department Wojciech Ríos DO Emergency [address] [place] [address] [place] [address] [phone] Allergies Active Allergy Reactions Severity Noted Date Comments Tape: Silk Or Adhesive Respiratory Reaction 12/20/2016 Bee Anaphylaxis 01/26/2017 Latex Respiratory Reaction 12/20/2016 Mushrooms Hives 11/28/2018 Tramadol Other 12/20/2016 Mood change documented as of this encounter (statuses as of 07/09/2019) Medications Medication Sig Dispensed Refills Start Date [...] as of this encounter (statuses as of 07/09/2019) Active Problems Problem Noted Date 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 [...] as of this encounter (statuses as of 07/09/2019) Resolved Problems Problem Noted Date Resolved Date Fall 01/26/2017 08/07/2017 Syncope 01/26/2017 02/12/2018 documented as of this encounter (statuses as of 07/09/2019) Social History Tobacco Use Types Packs/Day Years [...] Sign Reading Time Taken Comments Blood Pressure 124/85 07/08/2019 9:55 PM EST Pulse 85 07/08/2019 9:55 PM EST Temperature 36.4 07/08/2019 9:55 PM EST C (97.6 F) Respiratory Rate 18 07/08/2019 9:55 PM EST Oxygen Saturation 100% 07/08/2019 9:55 PM EST Inhaled Oxygen Concentration - - Weight - - Height - - Body Mass Index - - documented in this encounter Discharge Instructions Wojciech Louise DO - 07/08/2019Prilosec 40 mg daily Return to the emergency department if you develop increased pain, fever, nausea vomiting or worsening symptoms AttachmentsThe following attachments cannot be sent through Care Everywhere.Nonalcoholic Fatty Liver Disease Discharge Instructions (Zambian) Gastritis (Zambian)Acute Abdomen (Belly Pain) ([place]ian)documented in this encounter Plan of Treatment Date Type Specialty Care Team Description 08/13/2019 Office Visit Neurology Archie Marx CRNP [address] [place] [address] [phone] 08/23/2019 Office Visit Family Practice Emile Pacheco MD [address] [place] [phone] Name Type Priority Associated Diagnoses Date/Time INPT/ED 12 LEAD EKG EKG STAT 07/08/2019 7:00 PM EST Health Maintenance Due Date Last [...] control of your depression. Work with your Investigator Operator General No Adali Bonilla RN Note: This is an individualized treatment (frequent ED use) goal for Kalyani Dowling: Please work with your Investigator Operator, who will assist you in meeting your [...] Procedure Name Priority Date/Time Associated Comments Diagnosis US ABDOMEN LIMITED STAT 07/08/2019 8:48 Results for this PM EST procedure are in the results section. XR CHEST 2 VIEW PA AND STAT 07/08/2019 7:50 Results for this LATERAL (STANDARD) PM EST procedure are in the results section. CBC WITH DIFFERENTIAL STAT 07/08/2019 7:18 Results for this PM EST procedure are in the results section. TROPONIN STAT 07/08/2019 7:18 Results for this PM EST procedure are in the results section. LIPASE STAT 07/08/2019 7:18 Results for this PM EST procedure are in the results section. COMPREHENSIVE STAT 07/08/2019 7:18 Results for this METABOLIC PANEL PM EST procedure are in the results section. AMYLASE STAT 07/08/2019 7:18 Results for this PM EST procedure are in the results section. D DIMER STAT 07/08/2019 7:18 Results for this PM EST procedure are in the results section. documented in this encounter Results US ABDOMEN LIMITED (07/08/2019 8:48 PM EST) Specimen Impressions Performed At Marked hepatic steatosis. The gallbladder was not sonographically depicted. Signed by Alfonzo Morfin MD on 07/08/2019 9:10 PM Narrative Performed At Procedure(s): US ABDOMEN LIMITED Date of service: 07/08/2019 8:17 PM History: 38 years, Female, "Cholelithiasis" TECHNIQUE: A limited ultrasound of the abdomen was performed utilizing color and grayscale sonography. FINDINGS: Liver: The liver echogenicity exceeds that of the renal cortex. Additionally, the sonographic wave is attenuated resulting in poor delineation of the diaphragm and intrahepatic architecture. The sonographic findings are diagnostic of hepatic steatosis. The liver measures 19 cm at the mid-hepatic line, when measured accurately. Pancreas: There is suboptimal visualization of the pancreas in the presence of diffuse abdominal bowel gas. Vasculature: The main portal vein is patent, with antegrade and monophasic predominant flow upon spectral interrogation. Right kidney: The right kidney is normal in echogenicity and the cortical medullary differentiation is well maintained. There is no hydronephrosis or obstructing proximal nephrolithiasis. The right kidney measures 11.3 cm in length. Common bile duct: The common bile duct is nondilated. There is no obstructive choledocholithiasis. The common bile measures 3.8 mm in maximal diameter. Gallbladder: The gallbladder was not sonographically depicted Procedure Note Interface, Rad Results - 07/08/2019 9:12 PM EST Procedure(s): US ABDOMEN LIMITED Date of service: 07/08/2019 8:17 PM History: 38 years, Female, "Cholelithiasis" TECHNIQUE: A limited ultrasound of the abdomen was performed utilizing color and grayscale sonography. FINDINGS: Liver: The liver echogenicity exceeds that of the renal cortex. Additionally, the sonographic wave is attenuated resulting in poor delineation of the diaphragm and intrahepatic architecture. The sonographic findings are diagnostic of hepatic steatosis. The liver measures 19 cm at the mid-hepatic line, when measured accurately. Pancreas: There is suboptimal visualization of the pancreas in the presence of diffuse abdominal bowel gas. Vasculature: The main portal vein is patent, with antegrade and monophasic predominant flow upon spectral interrogation. Right kidney: The right kidney is normal in echogenicity and the cortical medullary differentiation is well maintained. There is no hydronephrosis or obstructing proximal nephrolithiasis. The right kidney measures 11.3 cm in length. Common bile duct: The common bile duct is nondilated. There is no obstructive choledocholithiasis. The common bile measures 3.8 mm in maximal diameter. Gallbladder: The gallbladder was not sonographically depicted IMPRESSION Marked hepatic steatosis. The gallbladder was not sonographically depicted. Signed by Alfonzo Morfin MD on 07/08/2019 9:10 PM XR CHEST 2 VIEW PA AND LATERAL (STANDARD) (07/08/2019 7:50 PM EST) Specimen Impressions Performed At No radiographic evidence of active disease in the chest. Urgency: Routine. This is a routine medical imaging report. Recommendation: No specific imaging recommendation Signed by Jordy Galan on 07/08/2019 7:57 PM Narrative Performed At Procedure(s): XR CHEST 2 VIEW PA AND LATERAL (STANDARD) Date of service: 07/08/2019 7:38 PM Provided clinical information: 38 years, Female, "chest pain, sob" Procedure: Standard protocol. Comparison: 05/05/2019 Observations: PA and lateral radiographs of the chest were obtained. The lungs are clear without evidence of focal airspace consolidation. There is no pulmonary vascular congestion. There is no pneumothorax or pleural effusion. The cardiomediastinal silhouette is stable. The included osseous structures are unchanged. Procedure Note Interface, Rad Results - 07/08/2019 8:00 PM EST Procedure(s): XR CHEST 2 VIEW PA AND LATERAL (STANDARD) Date of service: 07/08/2019 7:38 PM Provided clinical information: 38 years, Female, "chest pain, sob" Procedure: Standard protocol. Comparison: 05/05/2019 Observations: PA and lateral radiographs of the [...] Recommendation: No specific imaging recommendation Signed by Joryd Galan on 07/08/2019 7:57 PM LIPASE (07/08/2019 7:18 PM EST) Lipase 50 23 - 300 U/L [facility] Specimen Blood - Blood specimen (specimen) Performing Organization Address [facility] [[email or web address] Phone Number [facility] [address] [place] [address] [phone] AMYLASE (07/08/2019 7:18 PM EST) Amylase 77 30 - 110 U/L [facility] Specimen Blood - Blood specimen (specimen) Performing Organization Address [facility] [[email or web address] Phone Number [facility] [address] [place] [address] COMPREHENSIVE METABOLIC PANEL (07/08/2019 7:18 PM EST) Sodium 140 134 - 145 mmol/L [facility] Potassium 3.3 (L) 3.5 - 5.1 mmol/L [facility] Chloride 103 98 - 107 mmol/L [facility] CO2 29 22 - 30 mmol/L [facility] Calcium 9.1 8.3 - 10.1 mg/dl [facility] Albumin 4.0 3.5 - 5.0 g/dl [facility] BUN 11 7 - 17 mg/dl [facility] Creatinine 0.6 (L) 0.7 - 1.2 mg/dl [facility] Glucose 104 (H) 70 - 99 mg/dl [facility] Total Protein 7.5 6.3 - 8.2 g/dl [facility] Total Bilirubin 0.2 0.0 - 1.1 MG/DL [facility] AST 24 15 - 46 U/L [facility] ALT 15 9 - 52 U/L [facility] Alkaline 146 40 - 150 U/L [facility] Phosphatase [facility] eGFR >60 See Interpretation [facility] Comment: Below ml/min/1.73ml [facility] Estimated GFR Interpretation: Sq LABORATORY Above 60ml/min/1.73m2 = Normal Renal Function 30-59 ml/min/1.73m2 = Stage 3 Chronic Kidney Disease 15-29 ml/min/1.73m2 = Stage 4 Chronic Kidney Disease Less than 15 ml/min/1.73m2 = Stage 5 Chronic Kidney Disease The GFR value is calculated using the Modification of Diet in Renal Disease ( MDRD) Study Equation which can be found at: https://www.kidney.org/content/ctbj-wmrar-wmtxoneu BUN/Creatinine 18 6 - 22 [facility] Anion Gap 8 3 - 11 mmol/L [facility] A/G Ratio 1.1 0.8 - 2.0 ratio [facility] Specimen Blood - Blood specimen (specimen) Performing Organization Address City/State/Zipcode Phone Number [facility] [address] [place] [address] CBC WITH DIFFERENTIAL (07/08/2019 7:18 PM EST) WBC Count 7.37 3.98 - 10.04 K/uL [facility] RBC Count 4.43 3.93 - 5.22 M/UL [facility] Hemoglobin 13.2 11.2 - 15.7 g/dL [facility] Hematocrit 39.5 34.1 - 44.9 % [facility] MCV 89.2 79.4 - 94.8 FL [facility] MCH 29.8 25.6 - 32.2 PG [facility] MCHC 33.4 32.2 - 35.5 g/dL [facility] Platelet Count 237 182 - 369 K/uL [facility] MPV 10.0 9.4 - 12.3 FL [facility] RDW 12.9 11.7 - 14.4 % [facility] Neutrophil % 46.4 34.0 - 71.1 % [facility] Lymphocyte % 41.0 19.3 - 51.7 % [facility] Monocyte % 7.3 4.7 - 12.5 % [facility] Eosinophil % 4.7 0.7 - 5.8 % [facility] Basophil % 0.3 0.1 - 1.2 % [facility] nRBC % 0.0 0.0 - 0.2 % [facility] Neutrophil # 3.42 1.56 - 6.13 K/UL [facility] Lymphocyte # 3.02 1.18 - 3.74 K/UL [facility] Monocyte # 0.54 0.24 - 0.86 K/UL [facility] Eosinophil # 0.35 0.04 - 0.36 K/UL [facility] Basophil # 0.02 0.01 - 0.08 K/UL [facility] Immature Gran % 0.3 0.0 - 0.4 % [facility] Immature Gran # 0.02 0.00 - 0.03 K/uL [facility] NRBC # 0.00 0.00 - 0.12 K/uL [facility] Specimen Blood - Blood specimen (specimen) Performing Organization Address City/State/Zipcode Phone Number [facility] [address] [place] [address] I DIMER (07/08/2019 7:18 PM EST) Pathologist [facility] D Dimer <=0.27Comment: <=0.50 UG/ML [facility] D-dimer values less [facility] than or equal to 0.50 ug/mL fibrinogen equivalent units (FEU) may be used in conjunction with clinical pre-test probability to exclude deep vein thrombosis (DVT) and/or pulmonary embolism (PE). Specimen Blood - Blood specimen (specimen) Performing Organization Address [facility] Phone Number [facility] [address] [place] [address] TROPONIN (07/08/2019 7:18 PM EST) [facility] Troponin <0.012 0.000 - 0.034 [facility] Comment: ng/ml [facility] Negative less than or equal to 0.034 ng/ml Indeterminate 0.0351 - 0.119 ng/ml (Suggest Repeat in 4 Hours) Critical (AMI Cutoff) greater than or equal to 0.120 ng/ml Specimen Blood - Blood specimen (specimen) Performing Organization Address [facility] Phone Number [facility] [address] [place] [address] [phone] documented in this encounter Visit Diagnoses Diagnosis Epigastric pain Abdominal pain, epigastric Acute gastritis, presence of bleeding unspecified, unspecified gastritis type Hepatic steatosis Other chronic nonalcoholic liver disease documented in this encounter Administered Medications Medication Order MAR Action Action Date Dose Rate Site aluminum & magnesium Given 07/08/2019 9:05 PM EST 15 mL hydroxide-simethicone II (MYLANTA II) oral suspension 400-400-40 MG/5ML 15 mL, Oral, X1, 1 dose, First dose on Mon07/08/19 at 2155, Ordered to be given in conjunction with Viscous Lidocaine as part of a GI Cocktail. May mix with Viscous Lidocaine prior to administration., lidocaine (XYLOCAINE) oral solution 2 % Given 07/08/2019 9:05 PM EST 15 mL 15 mL, Oral, X1, 1 dose, First dose on Mon07/08/19 at 2155, Ordered to be given in conjunction with Antacid as part of a GI Cocktail. May mix with Antacid prior to administration., normal saline bolus 1,000 mL New Bag 07/08/2019 7:33 PM EST 1,000 mL 1,000 mL, Intravenous, BOLUS, 1 dose, 07/08/19 at 1950 pantoprazole (PROTONIX) injection 40 mg Given 07/08/2019 7:33 PM EST 40 mg 40 mg, Intravenous Push, NOW, 1 dose, 07/08/19 at 1855, DO NOT USE BACTERIOSTATIC SALINE FROM STOREROOM!!!! INSTRUCTIONS: Reconstitute the Protonix vial with 10 mL Sodium Chloride prefilled syringe for an approximate final concentration of 4 mg/ml. Mix prior to administration. There is a 2 hour stability once mixed. Administer over a period of 2 minutes. Administer thru a dedicated line or a Y site. Please flush before and after administration. , documented in this encounter (Home) [facility] [phone] [place], [place] (Work) [address] documented as of this encounter Advance Directives Code Status Date Activated Date Inactivated Comments Full Code 11/24/2018 1:15 AM 11/28/2018 7:07 AM Does the patient have decision making capacity? Yes Order was discussed with: Patient I discussed all options and patient/surrogate requested and agreed to: Full Code
--- OUTSIDE RECORDS SUMMARY | 2019-08-05 17:15 | XMS REPORT ---
:1980 Author Organization [facility] Care Team Providers Name Role Phone AMADO MEDINA Primary Care Physician Unavailable Allergies, Adverse Reactions, [...] Delivery Code Name UID Location SNOMED-CT () 2019-01-[address], [id number] SNOMED-CT () 2019-02-[address], [id number] SNOMED-CT () 2019-04-[address], [id number] Psychother [id number] SNOMED-CT () 2019-05-02 completed [facility], [facility]- [facility] patient [address] [place] [address], [id number] Encounters/Encounter Diagnoses Encounter Encounter Diagnosis Diagnosis Diagnosis Date of Service Name Code Code Name CodeSystem Diagnosis Delivery Location Non-Billable [address] SNOMED-CT 2019-05-07 [facility] , , , Vital Signs No Information Social History Element Description Description Start End Code CodeSystem AdditionalInfo Date Date SexAssignedAtBirth Female 1980-0 F AdministrativeGender 3-17 Hospital Discharge Instructions Reason For Referral Medical Equipment FDA Assessments
--- OUTSIDE RECORDS SUMMARY | 2019-08-05 17:15 | XMS REPORT | Continuity of Care Document ---
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 0001 - [facility] Aug-2 INSIDE SALES SPECIALIST Amminex [facility], Population 9-201 CARE. . 33-57 Health 8 [place], [address], [place] tel:+ [phone] 0001 - [facility] Scoliosis due Aug-2 RAVI [facility], Neurosurgery to KHALID. 46 33-57 degenerative 8 Levi Sims disease of Street, [place], spine in adult James James patientAdolesc [place], [place], [facility], [place], ent idiopathic [address]. [address], [place] scoliosis, tel:+[phone] tel:+ site [phone] unspecifiedAge -related osteoporosis w/o current pathological fracture 0001 - [facility] Primary Mild Aug-2 SCOTT JAY. [facility], Care James persistent [address] asthma without 8 [address], Levi complicationLen Dominguez [place], [facility] useCntct [place], [place] [address]. [place], environ tel:[phone], [place] tobacco smoke [address] tel:[phone] (acute) [phone] (chronic) 0001 - [facility] Primary Moderate Aug-0 SCOTT JAY. [facility], Care James persistent [address] asthma without 8 [address], Levi complicationLen Dominguez [place], [place], [place], James usePatient's [address]. [place], other tel:+[phone], [place] noncompliance [address] tel:+ with [phone] medication regimen 0001 - [facility] Other Aug-0 [facility] [employer] [facility], Neurosurgery intervertebral 6-201 HERMILA. 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 [address], [place] scoliosis, tel:+[phone] tel:+60 lumbar [phone] regionRadiculo sathya, lumbar region 0001 - [facility] Aug-0 [facility] [employer] [facility], Neurosurgery 2- HERMILA. 46 33-57 8 Count Includes [facility], Street, [place], [place], [place], [address]. [address], [place] tel:+[phone] tel:[phone] 0001 - S Primary Moderate Jean Marie-2 HANNAH S Inc, Care James persistent 6-[address] [place] [address], [place] [facility], Street, bacco use [place], [place], [place], [address]. [address], [place] tel:+[phone] tel:[phone] 0001 - S Primary Moderate Jean Marie-2 SCOTT JAY. S Inc, Care James persistent 4-[address] [place] [address] asthma with 8 [address], [facility], [place], [place], [facility] [address]. [place], tel:+[phone], [place] [address] tel:[phone] 0001 - S Jean Marie-1 INSIDE SALES SPECIALIST S Inc, Population 8-201 CARE. . 33-57 Health 8 [facility], [place], [address], [place] tel:[phone] 0001 - S Primary Jean Marie-1 MARICARMEN S Inc, Care James 7-[address] [place] [address], [facility], Street, [place], [place], [place], [address]. [address], [place] tel:+[phone] tel:[phone] 0001 - [facility] Primary Upper Jean Marie-1 MARICARMEN S Inc, Care James respiratory 7201 RENEE. [facility] 33- City tract [address], [place] infection, [facility], Street, unspecified [place], [place], [place], [address]. [address], [place] tel:+[phone] tel:[phone] 0001 - S Primary Nasal Jean Marie-1 SCOTT JAY. S Inc, Care James congestion 0-[address], [facility], [place], [place] [address]. [place], tel:+[phone], [place] [address] tel:[phone] 0001 - [facility] Pain Chronic Jean Marie-0 ELIAS S Inc, Management bilateral low 5- TAVARES. 52 33-57 back pain 8 [facility], Street, sciaticaOther Floor 2, [place], [place], [place], [address], [place] s w/o [address]. tel:+[phone] myelopathy or tel:[phone] radiculopathy, 48[address] lumbar regionOther jail (current) drug therapyTobacco use 0001 - S Primary Nasal Jean Marie-0 SCOTT JAY. S Inc, Care James congestionRib 3-201 [address] 33-57 [facility] pain 8 Street, [facility], [place], [place] [address]. [place], tel:[phone], [place] [address] tel:[phone] 0001 - S [facility] Ctr Pain in Jose-2 JASON LUKE. S Inc, Ortho unspecified 4433 Trish 33-57 ankle and 8 [facility] joints of Orthopedics, [place], [place] [address]. [place], left ankle, tel:[phone], [place] initial [address] tel:+[phone] encounterPain [id number] in left legPain in left ankle and joints of left foot 0001 - S Primary Rib pain on Jose-1 ZAGIEBOYLO [employer] Inc, Care James right side 4- HUSSEIN. 500 33-57 [facility] [address] [place], [place] [address]. [place], tel:[phone], [place] [address] tel:[phone] 0001 - S Primary Low back pain Jose-0 ZAGIEBOYLO [employer] Inc, Care James 7- HUSSEIN. 500 33-57 [facility] [address] [place], [place] [address]. [place], tel:[phone], [place] [address] tel:[phone] 0001 - S Primary Contusion of Jose-0 ZAGIEBOYLO [employer] Inc, Care James rib on right 1- HUSESIN. 500 33-57 [facility] side, initial [address], Street, shira of rib on [place], [place] left side, [address]. [place], initial tel:[phone], [place] encounterCandi [address] tel:+60 formerly [facility] [phone] intertrigoIncr eased abdominal girth 0001 - [facility] Pain in left September- MENDOZA Referring S Inc, OT arm 6-201 DEMI. Provider: [address] [facility] E, FRED[place]ICK E, [place], [place], [facility] 4433 [place] [address]. [place], [place], tel:[phone] [address], [address], [place] [address] [place], tel:+60 [place], [address]. [id number] tel:[phone] 0001 - [facility] Pain in left September- MENDOZA Referring S Inc, OT arm 4-201 DEMI. Provider: [address] [facility] E, FREDRICK E, [place], [place], [facility] 4433 [place] [address]. [place], tel:[phone] [address], [address], [place] [address] [place], tel:+60 [place], [address]. 73374797 tel:[phone] 0001 - S Ortho Ctr Left arm September- JASON LUKE. S Inc, Ortho painParesthesi 4201 4433 [place] a of skin 8 Shandon E, [facility], [place], James [address]. [place], [place], tel:[phone], [place] [address] tel:[phone] 0001 - S Primary Fall, initial September- ZAGIEBOYLO S Inc, Care James encounterContu 0-201 HUSSEIN. 500 33-57 City shira of left 8 [address] [place] chest wall, Avenue, Street, initial [facility] encounter [address]. [place], [place], tel:[phone], [place] [address] tel:[phone] 0001 - [facility] Pain in left September-0 PATRICIO Referring S Inc, OT arm TAVARES. Provider: Ag 8 4433 Trish DAJA Sims [facility], FREDRICK E, Street, [place], [place], [facility] 4433 [place] [address]. [place], tel:[phone] [address], [address], [place] [address] Trish, tel:+60 [place], [address]. 264[address]332 tel:[phone] 0001 - [facility] Low back May-0 EATON Referring S Inc, PT painPain in MAN. Provider: Ag left kneePain 8 4433 Trish ASHLIE Sims in left ankle [facility], [facility], and joints of [place], [place], S, 46 [place] left foot [address]. [place], [place], tel:[phone] [place], [address], [place] [address] James tel:+60 [place], [place], [id number]. tel:[phone] 0001 - [facility] Walk-In Acute otitis September-0 POORNIMA HO. 4417 [facility], Center [place] media, left [place] 33-57 8 [facility], [place], [place], [place], James [address]. [place], tel:[phone], [place] [address] tel:[phone] 0001 - [facility] Left knee September-0 EATON Referring S Inc, PT pain, MAN. Provider: Ag unspecified 8 4433 Trish Sims chronicityLeft [facility], [facility], lateral ankle [place], [place], S, 46 James painLow back [address]. [place], pain tel:[phone] [place], [address], [place] [address] James tel:+60 [place], [place], 44569265 [address]. tel:[phone] 0001 - [facility] Pain in left May-0 MENDOZA Referring S Inc, OT arm DEMI. Provider: Ag 8 4433 Trsih DAJA Sims [facility], FREDRICK E, [place], [place], [facility] 4433 [place] [address]. [place], tel:[phone] [address], [address], [place] [address] [place], tel:+60 [place], [address]. 46[address]956 tel:[phone] 0001 - [facility] Low back pain Apr-2 DOLORESE Referring S Inc, PT 6-201 RADHA. 4433 Provider: 3357 8 [place] ASHLIE [facility], DOMÍNGUEZ [place], [place], [place], S, 46 James [address]. [place], tel:[phone] [place], [address], [place] [address] James tel:+60 [place], [place], [address]. tel:[phone] 0001 - [facility] Pain in left Apr-2 MENDOZA Referring S Inc, OT arm 6-201 DEMI. Provider: 57 8 4433 [facility], [facility] E, [place], [place], [facility] 4433 [place] [address]. [place], tel:[phone] [address], [address], [place] [address] [place], tel:+60 [place], [address]. 752[address]14 tel:[phone] 0001 - [facility] Ortho Ctr Acute pain of Apr-2 VOVOS S Inc, Ortho left kneeAcute 5-201 AMY. 33-57 left ankle 8 [facility] [address] Levi [address] [place] [address] [place], , [place], [facility], [address]. [place], tel:[phone], [place] [address] tel:[phone] 0001 - [facility] Pain in left Apr-2 MENDOZA Referring S Inc, OT arm 3-201 DEMI. Provider: 57 8 4433 [facility], [facility], [place], [place], [facility] 4433 [place] [address]. [place], tel:[phone] [address], [address], [place] [address] [place], tel:+60 [place], [address]. 4[address]3984 tel:[phone] 0001 - [facility] Low back pain Apr-2 EATON Referring S Inc, PT 3-201 MAN. Provider: 33 8 0333 Trish ASHLIE Sims [facility], [facility], [place], [place], S, 46 [place] [address]. [place], tel:[phone] [place], [address], [place] [address] James tel:+ [place], [place], [phone]. tel:[phone] 0001 - [facility] Pain Chronic Apr-1 KRYSTIAN S [employer], Management bilateral back 9-201 GRAYSON. 52 33-57 pain, 8 [facility] unspecified Street, Street, back James James locationInterWilberforce, [place], [place], ertebral disc [address]. [address], [place] disorders w tel:+[phone] tel:60 radiculopathy, 36004 [phone] lumbar regionOther jail (current) drug therapyTobacco use 0001 - [facility] Low back pain Apr-1 EATON Referring [employer], PT 8-201 MAN. Provider: 33 8 3233 [place] ASHLIE Levi [facility], [facility], [place], [place], S, 46 James [address]. [place], tel:[phone] [place], [address], [place] [address] James tel:+ [place], [place], 16[address]. tel:[phone] 0001 - [facility] Pain in left Apr-1 MENDOZA Referring [employer], OT arm 8-201 DEMI. Provider: 33 8 4433 [facility], FREDRICK E, Street, [place], [place], S 4433 [place] [address]. [place], tel:+[phone] [address], [address], [place] [address] [place], [place], [address]. 67807617 tel:[phone] 0001 - [facility] Low back pain Apr-1 EATON Referring [employer], PT 6-201 MAN. Provider: 33 8 4433 [place] ASHLIE [facility], [facility], [place], S, 46 James [address]. [place], [place], tel:[phone] [place], [address], [place] [address] James tel:+60 [place], [place], [id number]. tel:[phone] 0001 - [facility] Pain in left Apr-1 MENDOZA Referring [facility], OT arm 6-201 DEMI. Provider: 3[address] [facility] E, FREDRICK E, [place], [place], [facility] 4433 [place] [address]. [place], tel:+[phone] [address], [address], [place] [address] Trish, tel:+60 [place], [address]. 38[address]284 tel:[phone] 0001 - [facility] Pain in left Apr-1 MENDOZA Referring [facility], OT arm 3-201 DEMI. Provider: 33 8 4433 [facility], FREDRICK E, [place], [place], [facility] 4433 [place] [address]. [place], tel:[phone] [address], [address], [place] [address] [place], tel:+60 [place], [address]. 82667866 tel:[phone] 0001 - [facility] Strain of left Apr-1 EATON Referring [facility], PT trapezius 3-201 MAN. Provider: 3357 [facility], 8 4433 [place] ASHLIE [facility], [facility], encounterChron [place], [place], S, 46 James ic bilateral [address]. [place], low back pain tel:+[phone] [place], [address], [place] without [address] James tel:+60 sciatica [place], [place], 333[address]. tel:[phone] 0001 - [facility] Pain in left Apr-1 MENDOZA Referring [facility], OT arm 1-201 DEMI. Provider: 33 [address] [facility], FREDRICK E, [place], [place], S 4433 [place] [address]. [place], tel:[phone] [address], [address], [place] [address] Trish, tel:+60 [place], [address]. 398[address]50 tel:[phone] 0001 - S Primary Abdominal Apr-0 ZAGIEBOYLO S Inc, Care James pain, diffuse - HUSSEIN. 500 [facility] 8 [facility], [place], James [address]. [place], tel:[phone], [place] [address] tel:[phone] 0001 - [facility] Pain in left Apr-0 BULKLEY Referring S Inc, OT arm JORGE. 4433 Provider: 8 [place] DAJA Levi Farah, FREDRICK Farah, [place], [place], [facility] 4433 [place] [address]. [place], tel:[phone] [address], [address], [place] [address] [place], tel:60 [place], [address]. 58338573 tel:[phone] 0001 - [facility] Trish Fibroadenoma Apr-0 CHANTE S Inc, Breast [facility] right [facility]. Surgery breastFamily 8 4417 [facility] history of [facility], [place] neoplasm of [place], [place], [place] [address]. [address], [place] tel:+[phone] tel:[phone] 0001 - [facility] Pain in left Apr-0 BULKLEY Referring S Inc, OT arm JORGE. 4433 Provider: 8 [place] DAJA Levi Farah [place] E, [place], [place], [facility] 4433 Ajmes [address]. [place], tel:[phone] [address], [address], [place] [address] [place], tel:+60 [place], [address]. 86955413 tel:[phone] 0001 - [facility] Pain in left Mar-3 MENDOZA Referring S Inc, OT arm 0201 DEMI. Provider: 8 33 [facility], [place]ICK E, [place], [place], [facility] 4433 [place] [address]. [place], tel:[phone] [address], [address], [place] [address] Trish, tel:+60 [place], [address]. 29809429 tel:[phone] 0001 - [facility] Pain in left Mar-2 MENDOZA Referring S Inc, OT arm 7 DEMI. Provider: 33 8 4433 [place] DAJA Levi Shandon E, FRED[place]ICK E, [place], [place], [facility] 4433 [place] [address]. [place], tel:[phone] [address], [address], [place] [address] [place], tel:+60 [place], [address]. 02906447 tel:[phone] 0001 - S Orth[facility] Ctr Left upper Mar-2 JASON BUTLER. S Inc, Ortho limb 4433 [place] 33-57 painParesthesi 8 Shandon E, Levi a of left Orthopedics, [place], upper limb [place], James [address]. [place], tel:[phone], [place] [address] tel:[phone] 0001 - S Primary Abdominal Mar-2 ZAGIEBOYLO S Inc, Care James pain, 2-201 HUSSEIN. [facility] [address] diffuseChronic 8 [address] [place] bilateral low [address], [place], back pain [place], [place], James without [address]. [place], sciatica tel:[phone], [place] [address] tel:[phone] 0001 - [facility] Pain in left Mar-2 MENDOZA Referring S Inc, OT arm 1 DEMI. Provider: 8 4433 [place] [facility] Hospital[facility] Shandon E, [place]ICK E, [place], [place], [facility] 4433 [place] [address]. [place], tel:[phone] [address], [address], [place] [address] [place], tel:+60 [place], [address]. 00077582 tel:[phone] 0001 - [facility] Pain in left Mar-1 MENDOZA Referring S Inc, OT arm 3 DEMI. Provider: 33 [address] [facility], FREDRICK E, Street, [place], [place], S 4433 [place] [address]. [place], tel:[phone] [address] , [address], [place] [address] Trish, tel:+1-60 [place], [address]. 76[address]270 tel:[phone] 0001 - S [facility] Left upper Mar-0 FREDRICK DAJA. S Inc, Ortho limb pain 5-201 S 4433 33-[address] Levi E, Tr[place], [place], [address]. James tel:[phone] [place], [address], [place] tel:[phone] 0001 - [facility] Pain in Mar-0 FREDRICK DAJA. S Inc, Ortho unspecified 2-201 S 4433 33-57 elbowPain in [address] Levi unspecified E, [place], [place], [address]. James tel:[phone] [place], [address], [place] tel:[phone] 0001 - S Primary Abdominal Feb-2 ZAGIEBOYLO S Inc, Care James pain, diffuse 0-201 HUSSEIN. 500 -[address], James [address]. [place], tel:[phone] [address], [place] [address] tel:[phone] 0001 - S Primary Cellulitis of Feb-1 CERVANTES S Inc, Care James umbilicus 5-201 KIMBERLY. 507 -57 [facility] 8 [facility], [facility], [place], James [address]. [place], tel:[phone], [place] [address] tel:[phone] 0001 - S Primary Chronic Feb-0 DARWISH NOR. S Inc, Care James bilateral low 8-201 7 [address] [facility] back pain 8 SP, [facility] [place], sciaticaOther [place], [place] chronic pain [address]. [place], tel:[phone], [place] [address] tel:[phone] 0001 - [facility] Pain Intervertebral May- GLOVER S Inc, Management disc disorders 4-201 GUSTAVO. 156 33-57 w 8 Saba Kasandra Sims radiculopathy, S107, Street, lumbar [facility] regionTobacco [place], [place], [place] [address]. [address], [place] tel:[phone] tel:[phone] 0001 - [facility] Primary Procedure and CHAR NASSAR. [facility] Inc, Care James treatment not [address] carried out 8 [facility] for other [facility], [place], James [address]. [place], tel:[phone], [place] [address] tel:[phone] 0001 - [facility] Primary Other insomnia ZANAKIAEBOYLO S Inc, Care James 1- [facility]. [facility] 8 [place], [place], [place] [address]. [place], [place], tel:[phone], [place] [address] tel:[phone] 0001 - [facility] Ortho Ctr Follow-up MEIPatrick KELLIE. S Inc, Ortho examination 0-[address] [place] [address] 8 [facility]ics, [place], [place], [place] [address]. [place], tel:[phone] [address], [place] [address] tel:[phone] 0001 - [facility] Ortho Ctr Paresthesia of CARAMORE S Inc, Ortho skin 0-201 BILLIE. 33 - [address] [place] [address] [place], [place], [address]. 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 [facility] [address] 1) infection 8 [place], [place] [address]. [place], tel:[phone], [place] [address] tel:[phone] 0001 - S Primary Chronic Dec-1 ZAGIEBOYLO [facility] Inc, Care James midline low 2-201 HUSSEIN. 500 33-57 [facility] back pain [address] [place] without [place], Street, sciaticaOther [place], James chronic pain [address]. [place], tel:[phone] [address], [place] [address] tel:[phone] 0001 - [facility] Pain in Nov-1 MEIS KELLIE. [facility] Inc, Ortho unspecified 6-201 4433 Trish 33-57 wristPain in 7 [facility], [place] unspecified Orthopedics, Street, handNumbness [place], [place], James of left [address]. [place], handPain in tel:[phone], [place] left wristPain [address] tel:+160 in left hand [phone] 0001 - [facility] Primary Left wrist Nov-0 ZAGIEBOYLO [facility] Inc, Care James tendonitis 8-201 HUSSEIN. 500 33-57 City 7 Fifth [facility], Street, [place], James [address]. [place], tel:[phone], [place] [address] tel:[phone] 0001 - S Ortho Ctr Pain in Oct-3 FREDRICK DAJA. S Inc, Ortho unspecified 1-201 [facility] 4433 33-57 [address] [facility], [place], [address]. James tel:[phone] [place], [address], [place] tel:[phone] 0001 - [facility] Unspecified Oct-2 PATRICIO Referring [facility] Inc, OT sprain of left 0-201 TAVARES. Provider: 33-57 wrist, 7 4433 [facility] subsequent [facility], [facility], [place], encounter [place], [place], S 4433 [place] [address]. [place], tel:[phone] [facility], [address], [place] [address] Trish, tel:+1-60 [place], [address]. 32663048 tel:[phone] 0001 - [facility] Chronic Oct-2 JOCELINE Referring S Inc, PT bilateral low 0-201 SATYA. 4433 Provider: 33-57 back pain with [address] HUSSEIN Levi bilateral E, Trish, [facility] [place], [place], [address]. , 500 James tel:[phone] [place], [address] [address], [address], [place], [place], tel:+[phone] 24573. 55000875 tel:[phone] 0001 - [facility] Unspecified Oct-1 PATRICIO Referring S Inc, OT sprain of left 8-201 TAVARES. Provider: 33-57 wrist, 4432 [place] DAJA Sims subsequent Shandon E, FREDRICK E, Street, encounter [place], [place], S 4433 James [address]. [place], tel:+[phone] [address]kw[address], [address], [place] [address] Trish, tel:+160 [place], [address]. 96695098 tel:[phone] 0001 - S Primary Chronic Oct-1 ZAGIEBOYLO S Inc, Care James midline low 8-201 HUSSEIN. [address] [place] [address] back pain 7 [address] [place] without [place], Street, sciatica [place], James [address]. [place], tel:[phone] [address], [place] [address] tel:[phone] 0001 - S Primary Post-concussio Oct-1 ZAGIEBOYLO S Inc, Care James n headache 6-201 HUSSEIN. [address] [place] [address] 7 [facility], Street, [place], [place], James [address]. [place], tel:[phone], [place] [address] tel:[phone] 0001 - [facility] Unspecified Oct-1 MENDOZA Referring S Inc, OT sprain of left 6-201 DEMI. Provider: 33-57 wrist, 4432 [place] DAJA Sims subsequent Shandon E, FREDRICK E, Street, encounter [place], [place], S 4433 James [address]. [place], tel:[phone] [address], [address], [place] [address] Trish, tel:+160 [place], [address]. 87940709 tel:[phone] 0001 - [facility] Unspecified Oct-1 MENDOZA Referring [facility] Inc, OT sprain of left 2-201 DEMI. Provider: 33-57 wrist, 7 4433 Trish DAJA Sims subsequent Shandon E, FREDRICK E, Street, encounter [place], [facility] 4433 James [address]. [place], tel:+[phone] [address], [address], [place] [address] Trish, tel:+ [place], [address]. 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 33-57 Surgery breastFamily 7 4417 [facility] history of [address], Street, malignant [place], [facility] [place] [address]. [place], breast tel:[phone], [place] [address] tel: [phone] 0001 - [facility] Primary Chronic Oct-0 ZAGIEBOYLO S Inc, Care [place] bilateral back 9-201 HUSSEIN. 500 33-57 [facility] pain, [address], Street, back [place], [place] locationOther [address]. [place], chronic pain tel:[phone], [place] [address] tel: [phone] 0001 - [facility] Unspecified Oct-0 MENDOZA Referring S Inc, OT sprain of left 9-201 DEMI. Provider: 33-57 wrist, 7 4433 Trish DAJA Sims subsequent Shandon E, FREDRICK E, Street, encounter [place], [facility] 4433 James [address]. [place], tel:+[address], [address], [place] [address] Trish, tel:+ [place], [address]. 04278933 tel:[phone] 0001 - [facility] Unspecified Oct-0 MENDOZA Referring S Inc, OT sprain of left 5-201 DEMI. Provider: 33-57 wrist, 7 4433 Trish DAJA Sims subsequent Shandon E, FREDRICK E, Street, encounter [place], [facility] 4433 James [address]. [place], tel:+[address], [address], [place] [address] Trish, tel:+60 [place], [address]. 09477059 tel:[phone] 0001 - [facility] Ortho Ctr Pain in left Oct-0 FREDRICK DAJA. S Inc, Ortho wrist 4-201 [facility] 44 33-[address] Levi E, Tr[place], [place], [address]. James tel:+[phone] [place], [address], [place] tel:[phone] 0001 - [facility] Sprain of left Oct-0 MENDOZA Referring S Inc, OT wrist, 3201 DEMI. Provider: subsequent 7 4433 [place] DAJA Sims encounterWrist Shandon E, FREDRICK E, Street, pain, left [place], [place], [facility] [address] [address]. [place], [place], tel:[phone], [address], [place] [address] Trish, tel:+ [place], [address]. 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 IVELISSE Sims history of [address], malignant [address]kw[address], [place] neoplasm of [place], [place], [place], breast [address]. [address], [place] tel:05069 tel: [phone] 0001 - [facility] Ortho Ctr Left wrist Sep-2 FREDRICK DAJA. S Inc, Ortho painPerson 5-201 [facility] 4433 33-57 consulting for 7 [place] Ute Kaminskion explanation of E, Trish, [place], [address]. James findings tel:+[phone] [place], [address], [place] tel:[phone] 0001 - [facility] Trish Abnormal Sep-2 OKELLY S Inc, Breast finding on -201 JAMEL 33-57 Surgery mammography 7 NILS. [facility] Levi [address], [address], [place], [place], [place], [address]. [address], [place] tel:+[phone] tel: [phone] 0001 - [facility] Primary Abnormal Sep-2 ZAGIEBOYLO [facility] Inc, Care James finding on HUSSEIN. [address] [place] [address] mammography 7 [address] [place], [place], [place] [address]. [place], [place], tel:+[phone], [place] [address] tel:+ [phone] 0001 - [facility] Primary Chronic Sep-2 VANNIYASINGA S Inc, Care James midline 0-201 M VINOJA. [address] [place] [address] thoracic back [address] [place] [address] pain [facility], [place], [place], [place], [place], [address]. [address], [place] tel:+[phone] tel: [phone] 0001 - [facility] Trish Breast mass, Sep-1 ZAGIEBOYLO S Inc, Breast right HUSSEIN. [address] [place] [address] Imaging 7 [place], [place], [place] [address]. [place], [place], tel:[phone], [place] [address] tel: [phone] 0001 -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 questions answered to the best of my ability.Patella stabalizer bracePT referralCompounding creamMRI Follow up after MRI Patient counseled to quit smoking. Related to Smoking Discussed about the harmful effects of smoking. Offered nicotine patches to the patient. Patient mentions that she will try her best to quit. Patient currently of Depakote. Related to Seizure disorder Continues to have episodes of seizures. Advised to get labs done. Referral for Neurology already submitted. Waiting for Neurology appointment. Used to take fluoxetine in the past. Related to Anxiety and depression Symptoms not well controlled at this moment. Will restart patient on Fluoxetine. Call our office ([facility]) or visit the ER if your symptoms worsens. GET PROMPT MEDICAL ATTENTION if any of the following occur:-- Worsening depression or anxiety-- Feeling out of control-- Thoughts of harming yourself or another-- Being unable to care for yourself Since you are seeking a second opinion Related to Left knee pain for your left knee pain, I will send a referral to Orthopedics. Someone from our office will schedule an appointment and contact you. If you do not hear from us within a week, then please call us to inquire about it. Call our office ([facility]) or visit the ER if your symptoms worsens. F/U in 1 month or earlier as needed. Prescribed Divalproex - same dose which Related to Seizure disorder patient used to obtain from her previous Neurologist. Will send a referral to Neurology for management of seizure as patient continues to have episodic seizures. Someone from our office will schedule an appointment and contact you. If you do not hear from us within a week, then please call us to inquire about it. Advised patient to make a follow up appointment in 1-2 weeks to discuss about her other medical issues. Call our office ([facility]) or visit the ER if your symptoms worsens. F/U in 1 month or earlier as needed. One month worth of depakote given as Related to Seizure disorder prescribed by previous doctor. Due to your mix up of stories, pain medication seeking and lying about medications, you will need to find a new provider. paperwork filled out for records. I Related to Physical exam can not prescribe you any medication at this time until i receive records from for other PCP. If you have refills on your medication at your pharmacy you need to go and get them filled. follow up in 2 weeks and we will discuss medication. continue naproxen as prescribed by Related to Bilateral back pain , previous MD. paperwork filled out for unspecified location us to receive records from previous office. If you would like to see a different neurosurgeon we will discuss that at your follow up. follow up in 2 weeks continue to see orthopedic doctor for Related to Left knee pain knee pain
--- OUTSIDE RECORDS SUMMARY | 2019-08-05 17:15 | XMS REPORT | Summary of Care ---
:1980 Author Organization [facility] Address [address] [address] Care Team Providers Name Role Phone Emile Pacheco Primary Care Provider Reason for Visit Reason Comments Wound Encounter Details Date Type Department Care Team Description 06/24/2019 - Emergency [facility] Emergency Department Carlo Shields, Emergency 06/25/2019 [address] [place] [id number] [address] [phone] [place] [address] [phone] Allergies Active Allergy Reactions Severity Noted Date Comments Tape: Silk Or Adhesive Respiratory Reaction 12/20/2016 Bee Anaphylaxis 01/26/2017 Latex Respiratory Reaction 12/20/2016 Mushrooms Hives 11/28/2018 Tramadol Other 12/20/2016 Mood change documented as of this encounter (statuses as of 06/26/2019) Medications Medication Sig Dispensed Refills Start Date [...] Active Oral Cap mouth DAILY. diclofenac (VOLTAREN) 2 g by Topical 1 Tube 3 12/25/2018 Active 1 % Transdermal Gel route FOUR TIMES DAILY. [...] Active 20 MG Oral Tab mouth DAILY. [id number]-hx 0.0179 Each by 5 g 0 06/24/2019 06/29/2019 Active lymyxin Topical route (NEOSPORIN,TRIPLE TWICE DAILY for 5 ANTIBIOTIC) 400-5-5000 days. 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 [...] as of this encounter (statuses as of 06/26/2019) Resolved Problems Problem Noted Date Resolved Date Fall 01/26/2017 08/07/2017 Syncope 01/26/2017 02/12/2018 documented as of this encounter (statuses as of 06/26/2019) Social History Tobacco Use Types Packs/Day Years [...] Sign Reading Time Taken Comments Blood Pressure 159/82 06/24/2019 10:37 PM EST Pulse 98 06/24/2019 10:37 PM EST Temperature 36 06/24/2019 10:37 PM EST C (96.8 F) Respiratory Rate 22 06/24/2019 10:37 PM EST Oxygen Saturation 99% 06/24/2019 10:43 PM EST Inhaled Oxygen Concentration - - Weight 82.1 kg (181 lb) 06/24/2019 10:37 PM EST Height 160 cm (5' 3") 06/24/2019 10:37 PM EST Body Mass Index 32.06 06/24/2019 10:37 PM EST documented in this encounter Discharge Instructions Carlo Sun MD - 06/24/2019Keep your surgical appointment on jul 02, 2019 as you have previously scheduled AttachmentsThe following attachments cannot be sent through Care Everywhere.Surgical Wound Discharge Instructions (Israeli)documented in this encounter Plan of Treatment Date Type Specialty Care Team Description 08/13/2019 Office Visit Neurology Archie Marx CRNP [address] [address] [phone] 08/23/2019 Office Visit Family Practice Emile Pacheco MD [address] [place] [phone] Health Maintenance Due Date Last Done Comments [...] control of your depression. Work with your Professor Of Musicology General No Adali Bonilla RN Note: This is an individualized treatment (frequent ED use) goal for Kalyani Dowling: Please work with your Professor Of Musicology, who will assist you in meeting your [...] prescribed medications as directed Self-management No Adali Bonilla, RN Note: This is an individualized self-management [...] filedocumented in this encounter Visit Diagnoses Diagnosis Encounter for post surgical wound check documented in this encounter Administered Medications Medication Order MAR Action Action Date Dose Rate Site [id number]-[id number] Given 06/24/2019 11:09 PM EST (NEOSPORIN,TRIPLE ANTIBIOTIC) ointment 400-5-5000 Apply externally, X1, 1 dose, First dose on Mon06/25/19 at 0000, Apply to right anterior thigh surgical site. Please dress with large band aid after, documented in this encounter (Home) [address] [phone] [place], [place] (Work) [id number] documented as of this encounter Advance Directives Code Status Date Activated Date Inactivated Comments Full Code 11/24/2018 1:15 AM 11/28/2018 7:07 AM Does the patient have decision making capacity? Yes Order was discussed with: Patient I discussed all options and patient/surrogate requested and agreed to: Full Code
--- OUTSIDE RECORDS SUMMARY | 2019-08-05 17:16 | XMS REPORT | Summary of Care ---
:1980 Author Organization [facility] Address [address] [address] Care Team Providers Name Role Phone Emile Pacheco Primary Care Provider Reason for Visit Reason Comments Back Pain Lump Finger Pain Encounter Details Date Type Department Care Team Description 06/08/2019 Emergency [facility] Emergency Department Emergency [address] [phone] Allergies Active Allergy Reactions Severity Noted Date Comments Tape: Silk Or Adhesive Respiratory Reaction 12/20/2016 Bee Anaphylaxis 01/26/2017 Latex Respiratory Reaction 12/20/2016 Mushrooms Hives 11/28/2018 Tramadol Other 12/20/2016 Mood change documented as of this encounter (statuses as of 06/09/2019) Medications Medication Sig Dispensed Refills Start End Date Status Date Levetiracetam Take 1 Tab by 60 Tab 5 Active (KEPPRA) 750 MG Oral mouth TWICE 9 Tab DAILY. divalproex sodium Take 3 Tabs by 270 Tab 3 Active (DEPAKOTE) 500 MG mouth DAILY. 9 Oral Tab One in AM, two ECIndications: in PM. Seizure disorder (HCC) Aripiprazole Take 1 Tab by 30 Tab 2 Active (ABILIFY) 2 MG Oral mouth EVERY 9 Tab BEDTIME. Fluoxetine HCl 40 MG Take 1 Cap by 90 Cap 1 Active Oral Cap mouth DAILY. 9 diclofenac 2 g by Topical 1 Tube 3 Active (VOLTAREN) 1 % route FOUR 9 Transdermal Gel TIMES DAILY. EPINEPHrine (EPIPEN 0.3 mg by 2 Each 0 Active 2-KELLEE) 0.3 MG/0.3ML Injection 9 Injection Solution route Auto-injector NEEDED (For allergic reaction, after bee sting) for up to 1 dose. ibuprofen (MOTRIN) Take 1 Tab by 20 Tab 0 Active 600 MG Oral Tab mouth EVERY 9 SIX HOURS NEEDED (pain) for up to 20 doses. albuterol HFA Take 2 Puffs 18 g 0 Active (VENTOLIN) 108 (90 by inhalation 9 Base) MCG/ACT EVERY FOUR Inhalation Aero Soln HOURS NEEDED (asthma exacerbation). pseudoephedrine Take 2 Tabs by 20 Tab 0 Active (SUDAFED) 30 MG Oral mouth EVERY 9 Tab FOUR HOURS NEEDED for Congestion for up to 10 doses. predniSONE Take 3 Tabs by 15 Tab 0 Active (DELTASONE) 20 MG mouth DAILY. 9 Oral Tab cyclobenzaprine Take 0.5 Tabs 15 Tab 0 06/13/19 Active (FLEXERIL) 10 MG by mouth THREE 0 20 Oral Tab TIMES DAILY NEEDED (muscle spasms) for up to 5 days. cyclobenzaprine Take 1 Tab by 50 Tab 1 06/08/19 Discontinued (FLEXERIL) 10 MG mouth THREE 9 20 (Therapy Oral Tab TIMES DAILY Completed) NEEDED (back pain). documented as of this encounter (statuses as of 06/09/2019) Active Problems Problem Noted Date PTSD (post-traumatic [...] as of this encounter (statuses as of 06/09/2019) Resolved Problems Problem Noted Date Resolved Date Fall 01/26/2017 08/07/2017 Syncope 01/26/2017 02/12/2018 documented as of this encounter (statuses as of 06/09/2019) Social History Tobacco Use Types Packs/Day Years [...] Sign Reading Time Taken Comments Blood Pressure 114/88 06/08/2019 11:14 PM EST Pulse 98 06/08/2019 11:14 PM EST Temperature 36.2 06/08/2019 11:14 PM EST C (97.2 F) Respiratory Rate 16 06/08/2019 11:14 PM EST Oxygen Saturation 97% 06/08/2019 11:14 PM EST Inhaled Oxygen Concentration - - Weight - - Height - - Body Mass Index - - documented in this encounter Discharge Instructions Blossom Fontana PA - 06/08/2019Tylenol as needed for pain and/ or fever. Max 3000 mg/day Flexeril 5 to 10 mg, 1 tablets every 8 hours as needed for muscle spasm. Don't drive or operate machinery while taking this medication. May make you sleepy. Avoid alcohol while taking this medication. OTC solanpas lidocaine patch as directed Rest, avoid aggravating activities Avoid strict bed rest, this may prolong recovery time Warm moist compresses to back Warm soaks in tub Follow-up with PCP Return to the emergency department or call if your symptoms worsen or you have any other concerns: bowel or bladder incontinence, numbness into groin and genitals, inability to move lower extremities. documented in this encounter Plan of Treatment Date Type Specialty Care Team Description 08/13/2019 Office Visit Neurology Archie Marx CRNP [address] [address] 08/23/2019 Office Visit Family Practice Emile Pacheco MD [address] [place] [address] Health Maintenance Due Date Last Done [...] control of your depression. 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 XR LUMBAR SPINE MIN STAT 06/08/2019 9:49 PM Results for this 4 VIEWS (STANDARD) EST procedure are in the results section. documented in this encounter Results XR HAND MIN 3 VIEWS LEFT (STANDARD) (06/08/2019 9:51 PM EST) Specimen Impressions Performed At No acute osseous or articular abnormality evident. Signed by Jose Madera on 06/08/2019 9:57 PM Narrative Performed At Procedure(s): XR HAND MIN 3 VIEWS LEFT (STANDARD) Date of service: 06/08/2019 9:18 PM Provided clinical information: 38 years, Female, "pinky finger pain after fall" Procedure and materials: Standard protocol. Comparison studies: 03/08/2019 Observations: Side: 4 view left hand. Bones: Intact with no displaced fracture or focal osseous destruction. The little finger specifically is intact. Joints: There is anatomic alignment with normal joint spaces. Soft tissues: Unremarkable. Procedure Note Interface, Rad Results - 06/08/2019 9:59 PM EST Procedure(s): XR HAND MIN 3 VIEWS LEFT (STANDARD) Date of service: 06/08/2019 9:18 PM Provided clinical information: 38 years, Female, "pinky finger pain after fall" Procedure and materials: Standard protocol. Comparison studies: 03/08/2019 Observations: Side: 4 view left hand. Bones: Intact with no displaced fracture or focal osseous destruction. The little finger specifically is intact. Joints: There is anatomic alignment with normal joint spaces. Soft tissues: Unremarkable. IMPRESSION No acute osseous or articular abnormality evident. Signed by Jose Madera on 06/08/2019 9:57 PM XR LUMBAR SPINE MIN 4 VIEWS (STANDARD) (06/08/2019 9:49 PM EST) Specimen Impressions Performed At No acute findings. Signed by Jose Madera on 06/08/2019 9:59 PM Narrative Performed At Procedure(s): XR LUMBAR SPINE MIN 4 VIEWS (STANDARD) Date of service: 06/08/2019 9:18 PM Provided clinical information: 38 years, Female, "back pain after fall" Procedure and materials: 5 views of the lumbar spine. Comparison studies: 11/07/2018. Observations: Alignment and curvature: There is normal lumbar alignment and curvature. Disc spaces and facets: Disc spaces and facets are grossly maintained throughout. Bones: Vertebral body heights are maintained and there is no radiographic evidence of a fracture. Soft tissues: Soft tissues are unremarkable. Procedure Note Interface, Rad Results - 06/08/2019 10:01 PM EST Procedure(s): XR LUMBAR SPINE MIN 4 VIEWS (STANDARD) Date of service: 06/08/2019 9:18 PM Provided clinical information: 38 years, Female, "back pain after fall" Procedure and materials: 5 views of the lumbar spine. Comparison studies: 11/07/2018. Observations: Alignment and curvature: There is normal lumbar alignment and curvature. Disc spaces and facets: Disc spaces and facets are grossly maintained throughout. Bones: Vertebral body heights are maintained and there is no radiographic evidence of a fracture. Soft tissues: Soft tissues are unremarkable. IMPRESSION No acute findings. Signed by Jose Madera on 06/08/2019 9:59 PM documented in this encounter Visit Diagnoses Diagnosis Acute left-sided low back pain without sciatica documented in this encounter Administered Medications Medication Order MAR Action Action Date Dose Rate Site home medication dispensing communication order 5 mg, Oral, TID PRN, Starting 06/08/19 at 2245, Until 06/09/19 at 0116, Muscle spasms, Home Discharge Medication: Flexeril . Dispense #: 3 doses., lidocaine transdermal Patch applied 06/08/2019 11:14 PM 1 Patch Back - Lower Mid patch (LIDODERM) topical EST 5 % 1 Patch, Topical, DAILY, First dose on 06/09/19 at 0900, Until Discontinued, Apply in AM, remove in PM. (no more than 12 h on per day). Please make sure previous patch is removed from site., documented in this encounter Guarantor Name Account Type Relation to Date of Phone Billing Address Patient Kalyani Dowling Personal/Family 1980 [address] [facility] (Home) [place] [phone] [place], [place] (Work) [id number] documented as of this encounter Advance Directives Code Status Date Activated Date Inactivated Comments Full Code 11/24/2018 1:15 AM 11/28/2018 7:07 AM Does the patient have decision making capacity? Yes Order was discussed with: Patient I discussed all options and patient/surrogate requested and agreed to: Full Code
[2019-08-05 17:25] VITALS: BP 119/90
--- NOTE | 2019-08-05 18:02 | ED ---
Throat Pain/Nasal Congestion - HPI Summary HPI Summary: 38 yo WF here for medication refill and left ear pain x few days with "muffled ear sounds" left> right, denies URI sx, f/c/n/v/d. - History of Current Complaint Chief Complaint: UCEye Time Seen by Provider: 08/05/19 17:27 Hx Obtained From: Patient Onset/Duration: Lasting Days Severity: Moderate Associated Signs And Symptoms: Positive: Negative Cough: None - Epiglottits Risk Factors Epiglottis Risk Factors: Negative - Allergies/Home Medications Allergies/Adverse Reactions: Allergies Allergy/AdvReac Type Severity Reaction Status Date / Time Adhesive Tape AdvReac Intermediate Hives Verified 08/05/19 17:25 Latex, Natural Rubber AdvReac Intermediate Edema Verified 08/05/19 17:25 tramadol AdvReac Intermediate "get's Verified 08/05/19 17:25 violent" Home Medications: Home Medications levETIRAcetam [Keppra 500] 750 mg PO BID 04/16/16 [History Confirmed 08/05/19] Albuterol HFA INHALER* [Ventolin HFA Inhaler*] 1 dose INH TID PRN 12/31/18 [ History Confirmed 08/05/19] Divalproex Sodium [Depakote] 1,000 mg PO QPM 05/04/19 [History Confirmed ] Lidocaine PATCH 5%* [Lidoderm 5% Patch*] 1 patch TRANSDERM DAILY #1 packet 05/10 [Rx Confirmed 08/05/19] Amoxicillin/Clavulanate TAB* [Augmentin TAB 875*] 875 mg PO BID 7 Days #14 tab 08/05/19 [Rx] Diclofenac 1% GEL (NF) [Voltaren 1% GEL (NF)] 1 applic TOPICAL 08/05/19 [History ] Diclofenac 1% GEL (NF) [Voltaren 1% GEL (NF)] 1 applic TOPICAL BID PRN 10 Days # 1 tube 08/05/19 [Rx] Ibuprofen TAB* [Advil TAB*] 800 mg PO PRN 08/05/19 [History] Lidocaine PATCH 5%* [Lidoderm 5% Patch*] 1 patch TRANSDERM DAILY 30 Days #60 patch 08/05/19 [Rx] Neomycin/Polymyxin B/Dexametha [Maxitrol] 1 oin OP TID 7 Days #1 ophth.oint 02/15 [Rx] PMH/Surg Hx/FS Hx/Imm Hx Previously Healthy: Yes Endocrine/Hematology History: Reports: Other Endocrine/Hematological Disorders - was told that she has a high risk of clotting from a blood test, no dvt/pe Denies: Hx Diabetes Cardiovascular History: Reports: Hx Hypotension, Hx Hypertension Denies: Hx Pacemaker/ICD Respiratory History: Reports: Hx Asthma, Hx Chronic Obstructive Pulmonary Disease (COPD), Other Respiratory Problems/Disorders - "inflamed lungs" History: Denies: Hx Renal Disease Musculoskeletal History: Reports: Hx Scoliosis, Other Musculoskeletal History - spina bifida Sensory History: Reports: Hx Contacts or Glasses Denies: Hx Hearing Aid Opthamlomology History: Reports: Hx Contacts or Glasses Neurological History: Reports: Hx Seizures Psychiatric History: Reports: Hx Bipolar Disorder Denies: Hx Panic Disorder - Cancer History Cancer Type, Location and Year: chronic back pain seizures Hx Chemotherapy: No Hx Radiation Therapy: No - Surgical History Surgery Procedure, Year, and Place: L ear prostethis(PLASTIC BONES); HYSTERECTOMY; neck surgery; gallbladder removed; stomach surgery 2003--"tumors and cysts"; appendectomy Infectious Disease History: No Infectious Disease History: Denies: Hx Clostridium Difficile, Hx Hepatitis, Hx Human Immunodeficiency Virus (HIV), Hx of Known/Suspected MRSA, Hx Shingles, Hx Tuberculosis, Hx Known/ Suspected VRE, Hx Known/Suspected VRSA, History Other Infectious Disease, Traveled Outside the [place] in Last 30 Days - Family History Known Family History: Positive: Cardiac Disease, Diabetes, Other - Bipolar disorder, aunt with stage 4 lung cancer Negative: Hypertension - Social History Alcohol Use: None Hx Substance Use: No Substance Use Type: Reports: None Hx Tobacco Use: Yes Smoking Status (MU): Current Some Day Smoker Type: Cigarettes Amount Used/How Often: 1/2 ppd Length of Time of Smoking/Using Tobacco: 15 yrs Have You Smoked in the Last Year: Yes Review of Systems Constitutional: Negative Eyes: Negative ENT: Negative Cardiovascular: Negative Respiratory: Negative Gastrointestinal: Negative Genitourinary: Negative Musculoskeletal: Negative Skin: Negative Neurological/Mental Status: Negative Positive: Headache Psychological: Normal All Other Systems Reviewed And Are Negative: No Physical Exam - Summary Physical Exam Summary: Vital Signs Reviewed: Yes Eye Exam: Normal Eyes: Positive: Conjunctiva Clear, mild right lateral lower lid erythema and irritation ENT: Positive: mild right TM erythema without effusion, B/L posterior auricular tenderness Neck: Positive: Supple Respiratory Exam: Normal Respiratory: Positive: Lungs clear, Normal breath sounds. Negative: Crackles, Rhonchi, Stridor, Wheezing Cardiovascular Exam: Normal, RRR, S1, S2 Abdomen: NT/ND Musculoskeletal Exam: Normal Neurological Exam: Normal Psychological Exam: Normal Skin Exam: Normal Triage Information Reviewed: Yes Vital Signs On Initial Exam: Initial Vitals Temp Pulse Resp BP Pulse Ox 36.1 C 82 16 119/90 99 08/05/19 17:17 08/05/19 17:17 08/05/19 17:17 08/05/19 17:17 08/05/19 17:17 Vital Signs Reviewed: Yes Appearance: Positive: Well-Appearing Skin: Positive: Warm Eyes: Positive: Normal Diagnostics - Vital Signs Vital Signs Temp Pulse Resp BP Pulse Ox 08/05/19 17:17 36.1 C 82 16 119/90 99 - Laboratory Lab Statement: Any lab studies that have been ordered have been reviewed, and results considered in the medical decision making process. EENT Course/Dx - Diagnoses Provider Diagnoses: Blepharitis, Medication refill, Middle ear infection Discharge ED - Sign-Out/Discharge Documenting (check all that apply): Patient Departure All imaging exams completed and their final reports reviewed: No Studies - Discharge Plan Condition: Stable Disposition: HOME Prescriptions: Amoxicillin/Clavulanate TAB* [Augmentin TAB 875*] 875 mg PO BID 7 Days #14 tab Diclofenac 1% GEL (NF) [Voltaren 1% GEL (NF)] 1 applic TOPICAL BID PRN 10 Days # 1 tube PRN Reason: Pain - Moderate Lidocaine PATCH 5%* [Lidoderm 5% Patch*] 1 patch TRANSDERM DAILY 30 Days #60 patch Neomycin/Polymyxin B/Dexametha [Maxitrol] 1 oin OP TID 7 Days #1 ophth.oint Patient Education Materials: Ear Infection (ED) Referrals: Emile Pacheco MD [Primary Care Provider] - - Billing Disposition and Condition Condition: STABLE Disposition: Home
== END 2019-08-05 18:00 | disposition home or self-care (01) ==
LOC: UCEAST 17:08
DX: H01.005 Unspecified blepharitis left lower eyelid (principal); H66.92 Otitis media, unspecified, left ear; Z76.0 Encounter for issue of repeat prescription; F17.210 Nicotine dependence, cigarettes, uncomplicated; I10 Essential (primary) hypertension; J44.9 Chronic obstructive pulmonary disease, unspecified; M41.9 Scoliosis, unspecified; R56.9 Unspecified convulsions; F31.9 Bipolar disorder, unspecified; Z91.09 Other allergy status, other than to drugs and biological substances; Z91.040 Latex allergy status; Z88.5 Allergy status to narcotic agent; Z79.899 Other long term (current) drug therapy
CPT/HCPCS: 99212; G0463